=== PATIENT | female | born 1945 | race Caucasian/White ===

== ENCOUNTER → 2016-07-26 12:42 | Outpatient (CLI) | payer MEDICARE, MEDICAID ==
[2013-09-23 10:54] VITALS: BMI 26.9
[~2016-07-26 12:42] MED LIST: BAYER CHEWABLE81 MG PO; EFFIENT10 MG PO; GABAPENTIN100 MG PO; GLUCOPHAGE1000 MG PO; HYDRALAZINE HCL50 MG PO; HYDROCODON-ACE1 EAC3; ISOSORBIDE MONO60 M1 PO; PLETAL50 MG PO; SYNTHROID75 MCG PO; SYNTHROID88 MCG PO
[2016-07-26 13:19] LABS: ANION GAP 11.1 mmol/L (8-16); CALCIUM 8.2 mg/dL (8.5-10.1); CARBON DIOXIDE 31.9 mmol/L (21.0-32.0); CREATININE - SERUM 3.7 mg/dL (0.6-1.3)
[2016-07-26 13:21] LABS: BASOPHILS 0.5 % (0.0-2.0); EOSINOPHILS 3.5 % (0-7); HEMATOCRIT 33.1 % (36.0-48.0); HEMOGLOBIN 10.4 g/dL (12-16); IMMATURE GRANULOCYTES 1.1 % (0-5); MCH 26.5 pg (26.0-34.0); MCHC 31.4 g/dL (31.0-37.0); MCV 84.4 fL (80.0-100.0); MEAN PLATELET VOLUME 11.8 fL (7.4-10.4); MONOCYTES 15.6 % (2-11); NEUTROPHILS 70.3 % (40-80); PLATELET COUNT 268 10x3/uL (130-400); RBC 3.92 10x6/uL (4.00-5.40); RDW 15.8 % (11.5-14.5); WBC 7.5 10x3/uL (4.8-10.8)
[2016-08-29 10:28] VITALS: BMI 24.3
== END | disposition home or self-care (01) ==
LOC: D.LABREF 12:42
PROVIDERS: Internal Medicine Nephrology
DX: N18.6 End stage renal disease (principal); D64.9 Anemia, unspecified

== ENCOUNTER 2016-08-23 13:32 | Inpatient (IN) | payer MEDICARE ==
[~2016-08-23] VITALS: Ht 157.5 cm; Wt 60.3 kg
--- NOTE | ~2016-08-23 | HEMODYNAMI ---
PATIENT:CAM FANG MEDICAL RECORD: [id number] : 45 LOCATION:[facility] D.[address] [facility]# [id number] ADMISSION DATE: 08/23/16 Generatedon:08/28/201611:44 Patient name: CAM FANG Patient #: [id number] SSN: [id number] : 1945 Date of study: 08/28/2016 Page: Of Hemodynamic Procedure Report Patient Data Patient Demographics Procedure consent was obtained First Name: CAM Gender: Female Last Name: ANNALISA : 1945 Patient #: [id number] Age: 70 year(s) Race: SSN: [id number] Additional ID: [id number] Contact details [address]: [address] [place] [address] State: [place] City: [place] Zip code: [address] Admission Admission Data Admission Date: 08/23/2016 Admission Time: 13:32 Arrival Date: 08/23/2016 Arrival Time: 13:32 Admit Source: Other Insurance Payor: Medicare Room #: D.2104 Lab Results Lab Result Date: 08/28/2016 Lab Result Time: 0:00 Biochemistry Name Units Result Min Max BUN mg/dl 38 --(----)-* 7 18 Creatinine mg/dl 3.9 --(----)-* 0.6 1.3 CBC Name Units Result Min Max Hemoglobin g/dl 8.5 *-(----)-- 13.5 17.5 Procedure Procedure Types Cath Procedure Diagnostic Procedure LHC LHC w/Coronaries w/Grafts PCI Procedure Coronary Stent Initial Miscellaneous Procedures Moderate Sedation up to 15 minutes Procedure Description Procedure Date Procedure Date: 08/28/2016 Procedure Start Time: 11:07 Procedure End Time: 11:31 Procedure Staff Name Function Becki Khan RT Scrub Yaniv Pride RN Nurse Jose Angel Cardona MD Performing Physician Vanessa Garcia RT Monitor Procedure Data Cath Procedure Fluoroscopy Diagnostic fluoroscopy Total fluoroscopy Time: 5.2 time: 5.2 min min Diagnostic fluoroscopy Total fluoroscopy dose: 234 dose: 234 mGy mGy Contrast Material Contrast Material Type Amount (ml) Isovue 300 163 Entry Location Entry Primary Successful Side Size Upsize Upsize Entry Closure Succes sful Closure Location (Fr) 1 (Fr) 2 (Fr) Remarks Device Remarks Femoral Left 5 Fr 6 Fr artery Short Estimated blood loss: 10 ml Diagnostic catheters Device Type Used For End Catheter Placement Cordis 5Fr Pigtail Ventriculography Catheter (MP) Cordis 5Fr JL 4.0 Procedure Catheter (MP) Cordis 5Fr 3DRC Catheter Procedure (MP) Procedure Complications No complications Procedure Medications Medication Administration Route Dosage Oxygen NC 3 l/min Lidocaine 2% added to field 20 Heparin Flush Bag added to field 2 bags (1000units/500ml NS) 0.9% NaCl I.V. 50 ml/hr Versed I.V. 0.5 mg Fentanyl I.V. 25 mcg Heparin Bolus I.V. 4000 units Integrilin (Bolus I.V. 5.6 ml 2mg/ml) Versed I.V. 0.5 mg Fentanyl I.V. 25 mcg Effient P.O. 60 mg Hemodynamics Rest HGB: 8.5 (g/dl) Heart Rate: 92 (bpm) Snapshots Pre Cath Intra NCS Post Cath Vital Signs Time Heart Resp SPO2 NIBP (mmHg) Rhythm Pain Sedation Rate (ipm) (%) Status Level (bpm) 10:52:00 93 19 95 Time NSR 0 (11) 10(A) Exceeded , No pain 10:56:59 93 18 96 Measuring NSR 0 (11) 10(A) , No pain 11:01:52 92 17 94 129/101(112) NSR 0 (11) 10(A) , No pain 11:06:51 97 18 95 190/89(0) NSR 0 (11) 10(A) , No pain 11:08:15 97 18 93 147/67(0) NSR 0 (11) 10(A) , No pain 11:13:14 98 19 95 190/84(0) NSR 0 (11) 10(A) , No pain 11:14:38 101 21 96 Time NSR 0 (11) 10(A) Exceeded , No pain 11:19:37 93 16 96 174/82(0) NSR 0 (11) 10(A) , No pain 11:25:39 99 23 92 No Cuff NSR 0 (11) 10(A) , No pain 11:28:40 97 20 93 169/50(104) NSR 0 (11) 10(A) , No pain 11:31:56 101 20 86 147/62(102) NSR 0 (11) 10(A) , No pain Medications Time Medication Route Dose Verified Delivered Reason Notes Effectiveness by by 10:46:30 Oxygen NC 3 Jose Angel Purvis used for l/min Dulce Pride RN procedure 11:04:39 Lidocaine 2% added 20ml Jose Angel Walter for local to vial Dulce Cardona MD anesthetic field 11:05:45 Heparin Flush added 2 Jose Angel Walter used for Bag to bags Dulce Cardona MD procedure (1000units/500ml field NS) 11:05:55 0.9% NaCl I.V. 50 Jose Angel Purvis Per physician ml/hr Dulce Pride RN 11:07:03 Versed I.V. 0.5 Jose Angel Purvis for sedation mg Dulce Pride RN 11:07:10 Fentanyl I.V. 25 Jose Angel Purvis for sedation mcg Dulce Pride RN 11:11:14 Versed I.V. 0.5 Jose Angel Purvis for sedation mg Dulce Pride RN 11:11:18 Fentanyl I.V. 25 Jose Angel Purvis for sedation mcg Dulce Pride RN 11:15:08 Heparin Bolus I.V. 4000 Jose Angel Purvis for verifi ed units Dulce Pride RN anticoagulation with dr cardona 11:20:10 Integrilin I.V. 5.6 Jose Angel Purvis for [place] d (Bolus 2mg/ml) ml Dulce Pride RN antiplatelet 4.4 ml therapy of vial 11:28:58 Effient P.O. 60 mg Jose Angel Purvis for Dulce Pride RN antiplatelet therapy Procedure Log Time Note 10:15:54 Yaniv Pride RN sent for patient. Start room use. 10:34:06 Informed consent obtained and on chart 10:34:09 Diagnostic Cath Status : Elective 10:34:30 Arrival Date: 08/23/2016 1:32:00 PM 10:34:36 Admit Source: Other 10:34:38 Insurance Payor : Medicare 10:37:01 Time tracking: Regular hours 10:37:05 Plan of Care:Hemodynamics will remain stable., Cardiac rhythm will remain stable., Comfort level will be maintained., Respiratory function will remain adequate., Patient/ family verbilizes understanding of procedure., Procedure tolerated without complication., Recovers from procedure without complications.. 10:37:11 Patient received from Med II to CCL 3 Alert and oriented. Tansferred to table in Supine position. 10:37:12 Warm blankets applied, and geeta hugger turned on for patient comfort. 10:37:13 Correct patient and procedure confirmed by team. 10:37:14 ECG and BP/O2 sat monitors applied to patient. 10:37:38 Lab Result : Hemoglobin 8.5 g/dl 10:37:38 Lab Result : Creatinine 3.9 mg/dl 10:37:38 Lab Result : BUN 38 mg/dl 10:44:49 Vital chart was started 10:44:50 Baseline sample Acquired. 10:44:53 Rhythm: unchanged. 10:44:55 Full Disclosure recording started 10:45:08 H&P Date Dictated: 08/27/2016 Within 30 days and on chart., H&P Addendum completed by physician on day of procedure. (MUST COMPLETE FOR ALL OUTPATIENTS). 10:45:09 Pre-procedure instructions explained to patient. 10:45:10 Pre-op teaching completed and patient verbalized understanding. 10:45:11 Family in waiting room. 10:45:12 Patient NPO since Midnight. 10:45:53 Is the patient allergic to Iodine/contrast media? No. 10:45:54 Was the patient premedicated? No 10:46:20 Patient diabetic? Yes. 10:46:24 Previous problem with sedation/anesthesia? Yes neuro 10:46:25 Snore? Yes 10:46:26 Sleep apnea? No 10:46:27 Deviated septum? No 10:46:28 Opens mouth fully? Yes 10:46:29 Sticks out tongue? Yes 10:46:30 Oxygen 3 l/min NC was administered by Yaniv Pride RN; used for procedure; 10:50:56 IV patent on arrival in right forearm with 0.9% NaCl at O. 10:51:03 Lab results completed and on chart. 10:51:07 Left groin area was prepped with chlora-prep and draped in sterile fashion 10:51:09 Alarms reviewed by R. N. 10:51:10 Sharps counted by scrub and verified by R.N. 10:51:16 Use device set Femoral Dx 10:51:17 Acist Syringe opened to sterile field. 10:51:18 Medline Cath Pack opened to sterile field. 10:51:18 Bag Decanter opened to sterile field. 10:51:19 Terumo 5Fr Denver Sheath opened to sterile field. 10:51:21 St Giovanny 260cm J .035 wire opened to sterile field. 10:51:22 Acist Manifold opened to sterile field. 10:51:22 Acist Hand Control opened to sterile field. 10:51:23 Diagnostic Infinity 5Fr Multipack catheter opened to sterile field. 10:51:24 Tegaderm 4 x 4 opened to sterile field. 10:57:14 Physician paged 11:04:39 Lidocaine 2% 20ml vial added to field was administered by Jose Angel Cardona MD; for local anesthetic; 11:05:45 Heparin Flush Bag (1000units/500ml NS) 2 bags added to field was administered by Jose Angel Cardona MD; used for procedure; 11:05:55 0.9% NaCl 50 ml/hr I.V. was administered by Yaniv Pride RN; Per physician; 11:06:40 --------ALL STOP TIME OUT------ 11:06:41 Final Timeout: patient, procedure, and site verified with staff and physician. All members of the team are in agreement. 11:06:43 Left groin site verified by team. 11:06:48 Sedation plan: IV Moderate Sedation Versed, Fentanyl 11:06:56 Procedure started. 11:06:58 Zero performed for pressure channel P1 11:07:03 Versed 0.5 mg I.V. was administered by Yaniv Pride RN; for sedation; 11:07:09 Local anesthetic to left femerol artery with Lidocaine 2% by Jose Angel Cardona MD.INITIAL ACCESS ONLY 11:07:10 Fentanyl 25 mcg I.V. was administered by Yaniv Pride RN; for sedation; 11:07:21 A 5 Fr sheath was inserted into the Left Femoral artery 11:07:43 A Cordis 5Fr Pigtail Catheter (MP) was advanced over the wire and used for Ventriculography. 11:08:23 EF : 50 % 11:08:25 Catheter removed. 11:08:32 A Cordis 5Fr JL 4.0 Catheter (MP) was advanced over the wire and used for Procedure. 11:08:35 LCA angiography performed. 11:10:11 Catheter removed. 11:10:21 A Cordis 5Fr 3DRC Catheter (MP) was advanced over the wire and used for Procedure. 11:11:05 HOYT to LAD angiography performed. 11:11:10 Catheter removed. 11:11:14 Versed 0.5 mg I.V. was administered by Yaniv Pride RN; for sedation; 11:11:18 Fentanyl 25 mcg I.V. was administered by Yaniv Pride RN; for sedation; 11:11:24 Terumo 6Fr Denver Sheath opened to sterile field. 11:11:37 Sheath upsized to a 6 Fr Short. 11:11:51 Moki.tv BasixCompak Inflation Kit opened to sterile field. 11:11:54 Leiva Whisper J 300cm 0.014 guide wire opened to sterile field. 11:12:06 Asetek Launcher 5Fr AR 2.0 guide catheter opened to sterile field. 11:12:25 SVG to RCA angiography performed. 11:13:05 SVG to Circ angiography performed. 11:13:39 Catheter removed. 11:13:53 Cordis 6FR XB 4.0 guide catheter opened to sterile field. 11:13:58 Proceeding to intervention. 11:14:13 6 Fr XB 4 guide catheter was inserted over the wire 11:14:46 Whispr wire advanced. 11:15:08 Heparin Bolus 4000 units I.V. was administered by Yaniv Pride RN; for anticoagulation; verified with dr cardona 11:16:01 Wire advanced across lesion. 11:18:14 Inflation number: 1 A Euphora 1.5 x 20 Balloon was prepped and advanced across the Mid CX, then inflated to 13 AMBER for 0:00 (min:sec). 11:18:34 Inflation number: 2 The Euphora 1.5 x 20 Balloon was reinflated across the Mid CX, to 13 AMBER for 0:10 (min:sec). 11:18:46 Balloon removed over the wire. 11:20:10 Integrilin (Bolus 2mg/ml) 5.6 ml I.V. was administered by Yaniv Pride RN; for antiplatelet therapy; Wasteed 4.4 ml of vial 11:20:48 Inflation Number: 3 A Leiva Mini Vision Rx 2.0 x 28 stent was prepped and advanced across the Mid CX. The stent was deployed at 11 AMBER for 0:00 (min:sec). 11:20:51 Wire removed. 11:21:09 Cordis 6Fr Exoseal opened to sterile field. 11:21:17 Guide catheter removed. 11::23 Procedure ended.(Physican Out) 11:22:09 Fluoroscopy time 05.20 minutes. 11:22:18 Fluoroscopy dose: 234 mGy 11::18 Flurop Dose total: 234 11:: Contrast amount:Isovue 300 163ml. 11:22:24 Sharps counted by scrub and verified by R.N. 11:22:26 Insertion/operative site no bleeding no hematoma. 11:22:44 Post Procedure Pulses reassessed and unchanged 11::51 Post procedure rhythm: unchanged. 11::53 Estimated blood loss: 10 ml 11::57 Post procedure instruction explained to patient.Patient verbalizes understanding. 11:23:24 Procedure type changed to Cath procedure, Diagnostic procedure, LHC, LHC w/Coronaries w/Grafts, PCI procedure, Coronary Stent Initial, Miscellaneous Procedures, Moderate Sedation up to 15 minutes 11::58 Effient 60 mg P.O. was administered by Yaniv Pride RN; for antiplatelet therapy; 11:29:33 St Giovanny Femstop Arch Gold opened to sterile field. 11:29:50 Post left femerol artery:hematoma 11:30:23 Femstop placed over the left femerol artery at 185 mmHg. Hemostasis achieved. 11:30:31 Procedure and supply charges have been captured, reviewed, submitted and are correct. 11:30:55 Procedure Complication : No complications 11:30:59 Vital chart was stopped 11::01 See physician's report for complete and final results. 11:31:[address] [facility]. 11:31:16 Patient transfered to [facility] with Bed. 11:31:19 Full Disclosure recording stopped 11::19 Procedure ended. 11::23 End room use (Document Last) Intervention Summary Intervention Notes Time ActionType Lesion and Equipment Action# Pressure Duration Attributes Used 11:18:14 Inflate Mid CX Euphora 1 13 00:00 balloon 1.5 x 20 Balloon 11:18:34 Reinflate Mid CX Euphora 2 13 00:10 balloon 1.5 x 20 Balloon 11:20:48 Place stent Mid CX Leiva 3 11 00:00 Mini Vision Rx 2.0 x 28 stent Device Usage Item Name Manufacture Quantity Catalog Hospital Part Current Minimal Lot# / Number Charge Number Stock Stock Serial# Code Acist Acist 1 [id number] [id number] 532898 [id number] 20 Syringe Medical Systems Inc Bag Microtek 1 2002S 406153 67783 027310 5 Decanter JK [employer] Medline Cardinal 1 [id number] 562063 23814 436228 5 Cath Pack Health Terumo 5Fr Terumo 1 [id number] 149066 337294 555254 [address] Giovanny 1 265677 492867 404143 747430 30 260cm J .035 wire Acist Hand Acist 1 02603 583193 873612 143188 5 Control Medical Systems Inc Acist Acist 1 01935 078674 815990 793750 5 Manifold Medical Systems Inc Diagnostic Cardinal 1 [id number] 518891 31061 337269 30 Infinity Health 5Fr Multipack catheter Tegaderm 4 3M 1 [id number] 602224 443661 703495 5 x 4 Cordis 5Fr Cardinal 1 889106 5 Pigtail Health Catheter (MP) Cordis 5Fr Cardinal 1 366556 5 JL 4.0 Health Catheter (MP) Cordis 5Fr Cardinal 1 354089 5 3DRC Health Catheter (MP) Terumo 6Fr Terumo 1 DEF574 141528 776263 623396 40 [place] Sheath Merit Merit 1 [id number] 076854 747720 176133 15 BasixCompak Medical Inflation Kit Leiva Leiva 1 [id number] 878985 142715 032585 5 Whisper J Vascular 300cm 0.014 guide wire Medtronic Medtronic 1 [id number] 096210 037236 884592 1 Launcher 5Fr AR 2.0 guide catheter Cordis 6FR Cardinal 1 [id number] 130985 774359 031966 2 XB 4.0 Health guide catheter Euphora 1.5 Medtronic 1 [id number] 590778 068609 529604 5 [id number] x 20 Balloon Leiva Mini Leiva 1 [id number] 741153 182624 864372 5 [id number] Vision Rx Vascular 2.0 x 28 stent Cordis 6Fr Cardinal 1 EX600 662331 579368 778260 [address] Giovanny 1 [id number] 644780 370427 397752 5 Femstop Arch Gold Signature Audit [place] Stage Time Signature Unsigned Intra-Procedure 08/28/2016 Vanessa Garcia 11:32:18 AM RT(R); Becki RT(R); Sunshine Khan RT(R) Counts RT(R) 08/28/2016 11:43:04 AM Intra-Procedure 08/28/2016 Vanessa Garcia 11:43:58 AM RT(R) Signatures Monitor : Vanessa Garcia Signature : RT Date : Time : [facility] [address] [place] [address]
[~2016-08-23 13:32] MED LIST changes: -EFFIENT10 MG PO; -HYDRALAZINE HCL50 MG PO; -ISOSORBIDE MONO60 M1 PO; -SYNTHROID88 MCG PO
--- NOTE | 2016-08-23 13:49 | NUR ---
PT ARRIVED VIA WHEELCHAIR. WILL ADMIT.
[2016-08-23] MEDS ORDERED: HYDRALAZINE HCL50 MG PO (14:08)
[2016-08-23] MEDS ORDERED: ISOSORBIDE MONO60 M1 PO (14:09)
[2016-08-23 14:29] VITALS: BP 212/106
--- NOTE | 2016-08-23 14:31 | NUR ---
PATIENT REPORTS THAT SHE IS DIABETIC AND FEELS IF HER SUGAR IS "DROPPING". POC GLUCOSE IS 111. SHE HAS NO IDEA WHAT HER ALLERGIES ARE. I CALLED TO [facility] TO GET THEM TO FAX ME A COPY OF MEDS AND ALLERGIES.
--- NOTE | 2016-08-23 18:16 | NUR ---
CALL PLACED TO HI FRIEND APN R/T "CAN WE PLEASE FEED THE PATIENT" . AWAITING CALL BACK.
--- NOTE | 2016-08-23 18:37 | NUR ---
1823 - CALLED [facility] YAN FOR DIET. DR. JUNG REFFERED DIET TO DR. BOCANEGRA. CALLED DR. BOCANEGRA'S CELL PHONE, OFFICE AND THE SURGERY DEPARTMENT WITH NO ANSWER. CALL PLACED TO HOUSE SUP AND STATES SHE WILL CALL BACK.
--- NOTE | 2016-08-23 18:59 | NUR ---
CALLED THE HOME NUMBER FOR DR BOCANEGRA AND LEFT A MESSAGE TO PLEASE CALL US. ANOTHER NURSE HAS A CALL INTO THE RENAL OFFICE FOR THEM TO CALL US. AWAITING SOMEONE TO CALL US.
[2016-08-23 19:00] VITALS: BP 121/69
--- NOTE | 2016-08-23 19:15 | NUR ---
DR BOCANEGRA TO CALL BACK WITH NEW ORDERS.
--- NOTE | 2016-08-23 19:30 | NUR ---
RESUMED CARE OF PT, DENIES ANY NEEDS, CALL LIGHT IN REACH, WILL CONTINUE TO MONITOR
[2016-08-23 22:28] LABS: BASOPHILS 0.3 % (0.0-2.0); EOSINOPHILS 4.9 % (0-7); HEMOGLOBIN 8.4 g/dL (12-16); IMMATURE GRANULOCYTES 0.3 % (0-5); LYMPHOCYTES 19.6 % (15-50); MCH 26.4 pg (26.0-34.0); MCHC 31.1 g/dL (31.0-37.0); MCV 84.9 fL (80.0-100.0); MEAN PLATELET VOLUME 10.1 fL (7.4-10.4); MONOCYTES 6.7 % (2-11); NEUTROPHILS 68.2 % (40-80); PLATELET COUNT 217 10x3/uL (130-400); RBC 3.18 10x6/uL (4.00-5.40); RDW 16.3 % (11.5-14.5); WBC 6.4 10x3/uL (4.8-10.8)
[2016-08-23 22:37] LABS: ALBUMIN 2.4 g/dL (3.4-5.0); ANION GAP 12.3 mmol/L (8-16); BILIRUBIN - TOTAL 0.2 mg/dL (0.2-1.3); CALCIUM 8.1 mg/dL (8.5-10.1); CARBON DIOXIDE 25.3 mmol/L (21.0-32.0); CREATININE - SERUM 3.1 mg/dL (0.6-1.3); POTASSIUM - SERUM 4.6 mmol/L (3.5-5.1); PROTEIN - SERUM 5.8 g/dL (6.4-8.2)
--- NOTE | 2016-08-23 23:10 | NUR ---
PT RESTING QUIETLY WITHOUT C/O OR DISTRESS NOTED. FEW NEEDS VOICED. CALL LIGHT WITHIN REACH. WILL CONT TO MONITOR.
[2016-08-24] VITALS: BP 171/96
--- NOTE | 2016-08-24 03:05 | NUR ---
EKG COMPLETE, CONSENTS SIGNED
[2016-08-24 04:00] VITALS: BP 191/91
[2016-08-24 06:59] LABS: BASOPHILS 0.5 % (0.0-2.0); EOSINOPHILS 5.7 % (0-7); HEMATOCRIT 26.9 % (36.0-48.0); HEMOGLOBIN 8.4 g/dL (12-16); IMMATURE GRANULOCYTES 0.5 % (0-5); LYMPHOCYTES 23.4 % (15-50); MCH 26.6 pg (26.0-34.0); MCHC 31.2 g/dL (31.0-37.0); MCV 85.1 fL (80.0-100.0); MEAN PLATELET VOLUME 10.4 fL (7.4-10.4); MONOCYTES 11.3 % (2-11); NEUTROPHILS 58.6 % (40-80); PLATELET COUNT 235 10x3/uL (130-400); RBC 3.16 10x6/uL (4.00-5.40); RDW 16.3 % (11.5-14.5); WBC 5.8 10x3/uL (4.8-10.8)
--- NOTE | 2016-08-24 07:00 | NUR ---
RECEIVED REPORT. ASSUMED CARE OF PATIENT. ALERT/ORIENTED. PATIENT AWARE OF SURGERY THIS AM. CALL LIGHT WITHIN REACH. DENIES NEEDS. NO DISTRESS.
[2016-08-24 07:10] LABS: INR 0.96 (0.85-1.17); PROTIME 12.6 SECONDS (11.6-15.0)
[2016-08-24 07:15] LABS: ANION GAP 10.2 mmol/L (8-16); CALCIUM 8.5 mg/dL (8.5-10.1); CARBON DIOXIDE 27.3 mmol/L (21.0-32.0); CREATININE - SERUM 3.1 mg/dL (0.6-1.3); POTASSIUM - SERUM 4.5 mmol/L (3.5-5.1)
[2016-08-24 08:12] VITALS: BP 186/89
--- NOTE | 2016-08-24 10:38 | NUR ---
PREOP FLUIDS READY AND PLACED AT END OF PATIENT BED AT THIS TIME. PATIENT REQUESTED THAT HER FSBS BE CHECKED, RESULTED 108. AWAITING FOR SURGERY AT THIS TIME. NO DISTRESS.
--- NOTE | 2016-08-24 10:46 | NUR ---
PATIENT LEFT UNIT VIA BED AT THIS TIME WITH SURGERY ATTENDANTS. NO DISTRESS UPON LEAVING UNIT.
[2016-08-24 13:14] VITALS: BP 174/97
--- NOTE | 2016-08-24 13:15 | NUR ---
RECEIVED PATIENT BACK FROM SURGERY. ALERT/AWAKE. DIALYSIS NURSE AT BEDSIDE. HEMESPLIT PLACED TO RIGHT GROIN. NO BLEEDING FROM SITE. DRESSING INTACT TO RIGHT SIDE OF NECK. NO BLEEDING FROM DRESSING. CALL LIGHT WITH IN REACH. NO DISTRESS. PERIPHERAL PULSES PATENT.
--- NOTE | 2016-08-24 13:38 | NUR ---
SPOKE WITH AND STATES THAT RIGHT NIXON LLANOSLIT IS OKAY TO USE FOR DIALYSIS AT THIS TIME.
[2016-08-24 15:51] VITALS: BP 126/79
--- NOTE | 2016-08-24 17:10 | NUR ---
Mrs. Peterson had bedside hemodialysis today via her new right femoral hemosplit from 1400 until 1700. Average blood flow was 400 mls/minute. Net fluid removed was 2000 mls. No problems. Post vital signs were: B/P:142/74,HR:75,Temp:97.7,Resps:16.
[2016-08-24 20:57] VITALS: BP 138/67
--- NOTE | 2016-08-24 21:10 | NUR ---
BLOODSUGAR-319, GAVE 8 UNITS INSULIN
[2016-08-25 00:30] VITALS: BP 119/50
--- NOTE | 2016-08-25 02:12 | NUR ---
PT RESTING WELL WITHOUT C/O OR DISTRESS NOTED. CALL LIGHT WITHIN REACH. NO NEEDS VOICED. WILL MONITOR.
--- NOTE | 2016-08-25 03:22 | NUR ---
ASSESSMENT COMPLETE, PT SLEEPING, BED IS LOW, SRX2, CALL LIGHT IN REACH, WILL CONTINUE TO MONITOR
[2016-08-25 04:30] VITALS: BP 141/59
[2016-08-25 05:10] LABS: BASOPHILS 0.3 % (0.0-2.0); HEMATOCRIT 28.1 % (36.0-48.0); HEMOGLOBIN 8.9 g/dL (12-16); IMMATURE GRANULOCYTES 0.4 % (0-5); LYMPHOCYTES 17.9 % (15-50); MCH 26.9 pg (26.0-34.0); MCHC 31.7 g/dL (31.0-37.0); MCV 84.9 fL (80.0-100.0); MEAN PLATELET VOLUME 10.8 fL (7.4-10.4); MONOCYTES 11.9 % (2-11); NEUTROPHILS 65.5 % (40-80); PLATELET COUNT 205 10x3/uL (130-400); RBC 3.31 10x6/uL (4.00-5.40); RDW 16.6 % (11.5-14.5)
[2016-08-25 05:26] LABS: WBC 7.8 10x3/uL (4.8-10.8)
[2016-08-25 06:01] LABS: ANION GAP 12.2 mmol/L (8-16); CALCIUM 8.4 mg/dL (8.5-10.1); CARBON DIOXIDE 28.6 mmol/L (21.0-32.0); CREATININE - SERUM 2.9 mg/dL (0.6-1.3); PHOSPHOROUS 4.1 mg/dL (2.5-4.9); THYROID STIMULATING HORMONE 5.37 uIU/mL (0.36-3.74)
[2016-08-25 06:02] LABS: POTASSIUM - SERUM 3.8 mmol/L (3.5-5.1)
--- NOTE | 2016-08-25 07:20 | NUR ---
RECEIVED REPORT. ASSUMED CARE OF PATIENT. CALL LIGHT WITHIN REACH. DENIES NEEDS. RESP EVEN AND UNLABORED. LYING IN BED WITH EYES OPEN WANTING TO KNOW IF SHE WILL GET TO EAT BREAKFAST THIS AM. ASSURED PATIENT SHE WILL GET A BREAKFAST TRAY. DENIES ANY NEEDS AT THIS TIME.
[2016-08-25 08:12] VITALS: BP 145/62
--- NOTE | 2016-08-25 09:13 | HP ---
PATIENT: CAM FANG MEDICAL RECORD: [id number] ACCOUNT: [id number] LOCATION:[address] : 45 ADMISSION DATE: 08/23/16 HISTORY AND PHYSICAL EXAMINATION ADMISSION DATE: 08/23/2016 ADMISSION DIAGNOSES: Dialysis access complications and end-stage renal disease. HISTORY OF PRESENT ILLNESS: The patient is a 70-year-old white female with a history of end-stage renal disease secondary to diabetic nephropathy. She was hospitalized at [facility] in June of this year with acute anemia and kidney failure. She had a renal biopsy at that time, which showed diabetic nephropathy and was started on hemodialysis. While hospitalized at [facility], she had a HemoSplit catheter placed at that time and was started on hemodialysis at [facility] 3 days a week. She has been on HD for only 1 month and has clotted 4 catheters. Her most recent catheter was placed earlier this week and she was only able to receive dialysis one time. Yesterday at dialysis, the nurses were unable to pull any blood from each port. This fourth catheter that was placed was moved from the right side to the left side and still it did not help. The patient does not have any known blood clotting disorders and does not know of any family history of blood clotting disorders. She has had ongoing issues with anemia over the last few years and has seen hematology in the past. She also has a history of coronary artery disease, aortic stenosis, hyperlipidemia, type 2 diabetes, and anemia. We are admitting her for a clotted dialysis access, needing emergent dialysis and permanent dialysis access placement. PAST MEDICAL HISTORY: 1. ESRD secondary to biopsy-proven diabetic nephropathy, biopsy was done in July 2016 at [facility] in [place]. She had a HemoSplit catheter placed there by Dr. Rodriguez. She currently does not have a fistula or graft for dialysis and is interested in peritoneal dialysis. 2. Coronary artery disease. The patient has had multiple coronary stents placed in the past. She has been to the hospital multiple times, diagnosed with OH and treated with stents during 2006, 2008, 2010 and 2013. The heart cath done in 2006 was done in [place], [place]. She moved to [place] in 2008 where all of her other stents had been done. She had a CABG times [address] Priest. 3. Diabetic nephropathy. She was diagnosed with diabetes when she lived in [place], [place] during the . 4. Heart valve disease, history of aortic stenosis with mild LVH. Her last EF in July 2016 was 50%. 5. Hyperlipidemia. The patient has tried Lipitor and Crestor in the past, but is allergic to both. 6. Hypothyroidism. 7. Anemia. The patient has been hospitalized in the past requiring multiple units of blood transfusions, has seen hematology in the past. She was seen by Dr. Self in 2010. 8. Diabetic foot wound and cellulitis. She has been seen by Dr. Gustafson in 2013. 9. Peripheral vascular disease. She states she was supposed to have a procedure done on her arteries in her legs, but it was never done at the last visit, she left AMA. She is not currently on Plavix, STATES SHE IS ALLERGIC TO PLAVIX. HISTORY AND PHYSICAL [id number] CAM FANG 10. Diabetic neuropathy, currently takes gabapentin. 11. Gastritis, possible gastrointestinal bleed when she was admitted in [address] [facility] Paris was consulted and wanted to do an EGD due to her anemia and gastritis symptoms. She is scheduled for EGD, but left AMA. I do not see that it was done. PAST SURGICAL HISTORY: 1. Multiple dialysis HemoSplit catheter placements by Dr. Rodriguez and at her OPC in [place] between June and July 2016. 2. Multiple heart catheterizations with stents from 2006 until 2013. 3. CABG times [address] Priest. 4. Tubal ligation about 15-20 years ago. SOCIAL HISTORY: The patient was born in [place], [place] where she lived until she was 21 years old and moved to [place] where she stayed for about 20 years. She lived in [place], [place] to be close to her mother. She was briefly one time in which she had 1 son, but in 1996, then had 2 more children that are now all grown. She moved to [place], [place] in 2006 where she lived about 11 years. 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 Her 3 children are all grown and are 30s and 40s. 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 She has a history of smoking, but quit in 1990. She also quit drinking alcohol at that time. Denies any illicit drug use. FAMILY HISTORY: Her father had a history of diabetes and at age 87 from a CVA, also with heart disease. Mother at age 82 from lung cancer. She had 2 brothers with diabetes. One son has diabetes. No family history of any kidney disease that she knows of. ALLERGIES: LIPITOR, PLAVIX, AND CRESTOR. MEDICATIONS: Hydralazine 50 mg p.o. daily, Isosorbide 60 mg p.o. daily, aspirin 81 mg p.o. daily, Coreg 6.25 mg, 1 tab p.o. t.i.d., Lasix 20 mg p.o. daily on nondialysis days, Procardia-XL 60 mg, 1 tab p.o. daily for 14 days, MiraLax 17 grams p.o. daily, and [place]leton 7.5/325, one tab p.o. t.i.d. p.r.n. REVIEW OF SYSTEMS: Positive for occasional constipation, muscle aches and pains, generalized weakness. Denies any shortness of breath, chest pain, headache, dizziness, abdominal pain, nausea, vomiting, diarrhea, or depression. PHYSICAL EXAMINATION: GENERAL: Adult female, in no acute distress. HEAD: Normocephalic and atraumatic. EYES: Pupils equal, round and reactive to light. ENMT: Oropharynx clear. No erythema. No exudate. NECK: Supple. No JVD distention. No lymphadenopathy. HEART: Regular rate and rhythm. No murmur, rub or gallop. LUNGS: Clear bilaterally. No wheezes, rales or crackles. ABDOMEN: Soft and nontender. Active bowel sounds times 4. Nondistended. EXTREMITIES: No amputations or deformities. No edema. NEUROLOGIC: Awake, alert, oriented times 3. Grossly intact. SKIN: No prominent rashes or lesions. HISTORY AND PHYSICAL [id number] CAM FANG ASSESSMENT AND PLAN: 1. Clotted dialysis catheter. This is the patient's fourth catheter to clot since she started dialysis a month ago. Dr. Pedroza with surgery was consulted who is planning on placing a HemoSplit catheter tomorrow. She also needs a fistula or graft and may be PD catheter. The patient has transportation issues and is very interested in peritoneal dialysis. Due to her clotting multiple catheters, we will check clotting studies. She has no history of lupus or any blood clotting disorders. 2. End-stage renal disease, she has only had one complete dialysis treatment this week due to a clotted catheter. Labs showed no emergent need to dialyze today. We will dialyze her tomorrow after her HemoSplit catheter is placed, then continue hemodialysis Friday, Friday, Friday, per chronic schedule. 3. Anemia of chronic kidney disease. We will follow her H&H daily. 4. Coronary artery disease. The patient is currently on aspirin, but IS ALLERGIC TO PLAVIX. Per patient report, she IS ALSO ALLERGIC TO CRESTOR AND LIPITOR, but needs to take an antilipid due to her history of having multiple stents. She will need to follow up with her filter changing technician as outpatient to discuss medications. 5. Hypertension. We will continue her oral antihypertensives. 6. Type 2 diabetes. We will continue diabetic diet and sliding scale insulin a.c. and h.s. She is not currently on any diabetic medications. 7. Hypothyroidism. Check TSH. Continue levothyroxine. 8. Renal osteodystrophy. Check phosphorus, renal diet and start binders if needed. TRANSINT:[id number] Voice Confirmation ID: [id number] DOCUMENT ID: [id number] Dictated By: EDWARDO FRIEND I have interviewed/examined the above patient and agree with these documented findings. SUNNY NAIK MD at 0855 at 0913 CC: [id number] DICTATION DATE: 08/24/16 09 UPSETTER: 08/24/16 1055 ADM IN [facility] [address] [place] [address]
--- NOTE | 2016-08-25 11:19 | NUR ---
22 GAUGE IV TO LEFT WRIST REMOVED AT THIS TIME. CATHETER TIP INTACT. 2X2 GAUZE APPLIED, SECURED WITH TAPE. NO BLEEDING FROM SITE. IV REMOVED FROM NON-DOMINANT ARM WE WILL RESERVE THE LEFT EXTREMITY FOR FISTULA PLACEMENT ON 08/26/16 VIA .
[2016-08-25 11:52] VITALS: BP 130/54
--- NOTE | 2016-08-25 12:00 | NUR ---
FSBS 230. 4 UNITS HUMALOG ADMINISTERED AT THIS TIME. NO DISTRESS.
[2016-08-25 15:13] VITALS: BP 105/56
--- NOTE | 2016-08-25 16:41 | NUR ---
FSBS 210. 4 UNITS HUMALOG ADMINISTERED PER SLIDING SCALE.
[2016-08-25 20:00] VITALS: BP 134/65
[2016-08-26] VITALS: BP 182/88
[2016-08-26 04:00] VITALS: BP 153/81
--- NOTE | 2016-08-26 05:27 | NUR ---
NURSE ROUNDS 21:00 08/25/16 - PT LYING IN BED ON LEFT SIDE, EYES CLOSED, RESPIRATIONS EVEN AND UNLABORED. PT EASILY ROUSABLE TO VERBAL STIMULI, DENIES ANY ACUTE NEEDS. PT IS REQUESTING TO BE LEFT ALONE R/T WANTING TO SLEEP AND BEING VERY TIRED. FSBS WAS 199 - 2 UNITS OF INSULIN HELD SINCE PT IS NPO FOR FISTULA PLACEMENT TODAY. CONTINUE TO MONITOR CLOSELY. BED LOW, CALL LIGHT IN REACH, SIDE RAILS X 2, HOB 15 DEGREES. PT IS NPO AFTER MIDNIGHT 08/25/16, AND VERBALLY STATES SHE WILL CALL WITH ANY NEEDS.
[2016-08-26 05:32] LABS: BASOPHILS 0.5 % (0.0-2.0); EOSINOPHILS 5.2 % (0-7); HEMATOCRIT 26.6 % (36.0-48.0); HEMOGLOBIN 8.2 g/dL (12-16); LYMPHOCYTES 24.3 % (15-50); MCH 26.4 pg (26.0-34.0); MCHC 30.8 g/dL (31.0-37.0); MCV 85.5 fL (80.0-100.0); MEAN PLATELET VOLUME 10.5 fL (7.4-10.4); MONOCYTES 13.4 % (2-11); NEUTROPHILS 55.6 % (40-80); PLATELET COUNT 197 10x3/uL (130-400); RBC 3.11 10x6/uL (4.00-5.40); WBC 6.2 10x3/uL (4.8-10.8)
[2016-08-26 06:16] LABS: ANION GAP 12.6 mmol/L (8-16); CALCIUM 8.3 mg/dL (8.5-10.1); CARBON DIOXIDE 28.4 mmol/L (21.0-32.0)
--- NOTE | 2016-08-26 06:39 | NUR ---
PT AWAKE, ALERT, ORIENTED, RECEIVING HER HIBICLENS BATH AT THIS TIME. PT DENIES ANY ACUTE NEEDS, AND IS IN NO ACUTE DISTRESS. CONTINUE TO MONITOR.
[2016-08-26 08:43] VITALS: BP 132/78
--- NOTE | 2016-08-26 09:29 | NUR ---
ADMINISTERED EPOGEN SCHEDULE, PT NPO, PO MEDS NOT GIVEN AT THIS TIME. PT STATES THAT SHE HAS DEVELOPED BACK PAIN. HAS NOTHING FOR PAIN, PT DENIES ANY OTHER NEEDS AT THIS TIME. PT ASSESSED AT THIS TIME, NAD NOTED, WILL CONTINUE TO MONITOR, CALL LIGHT IN REACH.
--- NOTE | 2016-08-26 11:21 | NUR ---
BLOOD SUGAR OF 132, NO COVERAGE NEEDED PER SLIDING SCALE. PT IN BED, DENIES ANY NEEDS AT THIS TIME, CALL LIGHT IN REACH, NAD NOTED, WILL CONTINUE TO MONITOR.
--- NOTE | 2016-08-26 12:44 | NUR ---
DIALYSIS COORDINATOR: PATHWAYS: [facility] Mon/Wed/Fri 2nd shift. Records forwarded and clinic updated. ELMER LYNN.
[2016-08-26 13:14] VITALS: BP 182/71
--- NOTE | 2016-08-26 15:53 | NUR ---
ADMINISTERED PRE-OP MEDS, PT DENIES ANY NEEDS AT THIS TIME, CALL LIGHT IN REACH, NAD NOTED, WILL CONTINUE TO MONITOR.
--- NOTE | 2016-08-26 16:27 | NUR ---
PT TRANSFERED TO OR, VIA BED, NAD NOTED.
--- NOTE | 2016-08-26 16:35 | NUR ---
PT TRANSFERED BACK TO ROOM, SURGERY PUSHED BACK BECAUSE OF AN EMERGENCY. PT STATED THAT SHE WANTS SOME JELLO, INFOMRED HER THAT SHE IS STILL NPO AND IS NOT ABLE TO EAT ANYTHING AT THIS TIME. PT DENIES ANY OTHER NEEDS AT THIS TIME, CALL LIGHT IN REACH, WILL CONTINUE TO MONITOR.
[2016-08-26 17:16] VITALS: BP 140/92
--- NOTE | 2016-08-26 19:29 | NUR ---
PT WAS JUST TAKEN TO OR
[2016-08-26 22:06] VITALS: BP 187/67
--- NOTE | 2016-08-26 23:32 | NUR ---
PT RECEIVED FROM PACU @ 2150, AWAKE, ALERT, ORIENTED, DENIED PAIN AND WANTING SOMETHING TO EAT. PT STATES SHE RETURNED WITHOUT HER UPPER DENTURES AND THINKS THEY WERE LEFT IN OR. WILL CONTACT THEM IN THE AM, THEY HAVE LEFT FOR TODAY. TURKEY SANDWICH GIVEN. PT DENIES ANY OTHER NEEDS. CONTINUE TO MONITOR CLOSELY.
[2016-08-27 00:36] VITALS: BP 176/69
--- NOTE | 2016-08-27 00:52 | NUR ---
PT IS C/O SEVERE CHEST PAIN THAT SHE DESCRIBES FEELING LIKE SHE IS HAVING A HEART ATTACK. PT IS ALSO EXTREMELY ANXIOUS AT THIS TIME R/T NOT HAVING HER DENTURES. PT ALSO HAS NO PRN PAIN MEDICATION AND IS BEGINNING TO BE SORE FROM HER SURGERY EARLIER TODAY. I HAVE SPOKEN WITH FOIL CUTTER, MARIO PINZON, ABOUT PTS DENTURES. WE WILL CALL OR/OUTPT [facility] WHEN THEY OPEN TO CHECK ON PTS DENTURES. I WILL CALL RENAL FOR ORDERS FOR PRN PAIN MEDICATION AND POSSIBLY SOMETHING FOR ACUTE ANXIETY. EKG COMPLETED, WILL ALSO ORDER STAT CARDIAC ENZYMES. CONTINUE TO MONITOR CLOSELY.
--- NOTE | 2016-08-27 02:07 | NUR ---
DID GIVE PT PRN TYLENOL FOR HER PAIN IN LT ARM AND ABDOMEN. PT IS ALSO C/O OF HER THROAT BEING SCRATCHY AND SORE FROM BEING INTUBATED. PTS CHEST PAIN HAS SUBSIDED AND PT STATES SHE FEELS IT MAY HAVE BEEN HER NERVES FROM THE LAST FEW DAYS OF BEING IN HERE. GAVE PT CHOCOLATE PUDDING EARLIER PT WAS UNABLE TO EAT HER TURKEY SANDWICH AFTER SURGERY R/T NOT HAVING HER DENTURES. PT WAS UNABLE TO EAT THE CHOCOLATE PUDDING BECAUSE SHE WAS SO UPSET. PTS EKG SHOWS NORMAL SINUS RHYTHM WITH PROLONGED QT. WILL ADD TELEMETRY. WILL CONTINUE TO MONITOR CLOSELY.
[2016-08-27 02:56] LABS: CREATINE KINASE 40 UL (21-215)
[2016-08-27 02:57] LABS: TROPONIN-I 0.181 ng/mL (0.000-0.060)
--- NOTE | 2016-08-27 03:09 | NUR ---
SPOKE WITH CARRIE VALDIVIA, SOFTWARE ENGINEERING MANAGER FOR [facility]. SHE DID ORDER NORCO 7.5/325 1 PO Q 6 HOURS PRN PAIN, ALONG WITH NITRO 0.4 SL DIRECTED PRN CHEST PAIN. WILL ALSO CONSULT CARDIOLOGY. CONTINUE TO MONITOR CLOSELY.
[2016-08-27 04:59] VITALS: BP 161/67
--- NOTE | 2016-08-27 05:28 | NUR ---
PT RESTING COMFORTABLY, IN CLEAR DISTRESS, EASILY ROUSABLE TO VERBAL STIMULI. CONTINUE TO MONITOR CLOSELY.
[2016-08-27 07:49] VITALS: BP 144/69
[2016-08-27 07:55] LABS: CALC OSMOLALITY 285 mosm/kg (275-300); CALCIUM 8.1 mg/dL (8.5-10.1); CARBON DIOXIDE 27.3 mmol/L (21.0-32.0); CHLORIDE - SERUM 101 mmol/L (98-107); CKMB 3.4 U/L (0.0-3.6); CREATINE KINASE 55 UL (21-215); CREATININE - SERUM 3.8 mg/dL (0.6-1.3); GLUCOSE 169 mg/dL (74-106); POTASSIUM - SERUM 4.3 mmol/L (3.5-5.1); SODIUM 138 mmol/L (136-145); UREA NITROGEN 30 mg/dL (7-18); eGFR NON AFRICAN AMERICAN 12 mL/min (90-120)
[2016-08-27 07:56] LABS: TROPONIN-I 0.678 ng/mL (0.000-0.060)
[2016-08-27 08:12] LABS: BASOPHILS 0.2 % (0.0-2.0); EOSINOPHILS 1.4 % (0-7); HEMATOCRIT 25.1 % (36.0-48.0); HEMOGLOBIN 7.7 g/dL (12-16); IMMATURE GRANULOCYTES 0.5 % (0-5); LYMPHOCYTES 13.9 % (15-50); MCH 26.3 pg (26.0-34.0); MCHC 30.7 g/dL (31.0-37.0); MCV 85.7 fL (80.0-100.0); MEAN PLATELET VOLUME 11.2 fL (7.4-10.4); MONOCYTES 10.4 % (2-11); NEUTROPHILS 73.6 % (40-80); PLATELET COUNT 153 10x3/uL (130-400); RBC 2.93 10x6/uL (4.00-5.40); WBC 8.4 10x3/uL (4.8-10.8)
--- NOTE | 2016-08-27 10:36 | NUR ---
ADMINISTERED NORCO 7.5MG FOR PAIN LEVEL OF 6/10, PT UP TO SIDE OF BED, DENIES ANY NEEDS AT THIS TIME CALL LIGHT IN REACH, PARVIZ ORELLANA, WILL CONTINUE TO MONITOR.
[2016-08-27 11:18] LABS: ACLA - IGG AB <9 GPL U/mL (0-14); ACLA - IGM AB <9 MPL U/mL (0-12)
[2016-08-27 11:19] VITALS: BP 144/67
--- NOTE | 2016-08-27 11:42 | NUR ---
BLOOD SUGAR OF 209, 4 UNITS OF HUMALOG GIVEN PER SLIDING SCALE. PT DENIES ANY NEEDS AT THIS TIME. CALL LIGHT IN REACH, NAD NOTED, WILL CONTINUE TO MONITOR.
[2016-08-27 13:48] LABS: CKMB 4.5 U/L (0.0-3.6); CREATINE KINASE 74 UL (21-215)
--- NOTE | 2016-08-27 14:41 | NUR ---
STARTED UNIT OF PRBC'S VITAL SIGNS STABLE AT THIS TIME, PT DENIES ANY NEEDS OR DISCOMFORTS AT THIS TIME. NAD NOTED, WILL CONTINUE TO MONITOR.
[2016-08-27 15:25] VITALS: BP 137/61
--- NOTE | 2016-08-27 18:05 | NUR ---
UNIT OF PRBC'S FINISHED INFUSING AT THIS TIME. VITAL SIGNS STABLE, PT DENIES ANY NEEDS AT THIS TIME, CALL LIGHT IN REACH, NAD NOTED, WILL CONTINUE TO MONITOR.
[2016-08-27 19:00] VITALS: BP 139/90
[2016-08-28] VITALS (12 sets, daily range): BP systolic 141–189; BP diastolic 53–91
[2016-08-28 05:39] LABS: BASOPHILS 0.5 % (0.0-2.0); EOSINOPHILS 4.4 % (0-7); HEMATOCRIT 26.9 % (36.0-48.0); HEMOGLOBIN 8.5 g/dL (12-16); IMMATURE GRANULOCYTES 0.6 % (0-5); LYMPHOCYTES 16.7 % (15-50); MCH 27.4 pg (26.0-34.0); MCHC 31.6 g/dL (31.0-37.0); MCV 86.8 fL (80.0-100.0); MEAN PLATELET VOLUME 10.6 fL (7.4-10.4); MONOCYTES 13.5 % (2-11); NEUTROPHILS 64.3 % (40-80); PLATELET COUNT 183 10x3/uL (130-400); RDW 16.8 % (11.5-14.5); WBC 8.3 10x3/uL (4.8-10.8)
[2016-08-28 05:50] LABS: CALCIUM 8.3 mg/dL (8.5-10.1); CARBON DIOXIDE 27.8 mmol/L (21.0-32.0); CREATININE - SERUM 3.9 mg/dL (0.6-1.3)
[2016-08-28 06:15] LABS: ANTITHROMBIN III ANTIGEN 106 % (72-124); PROTEIN S - FREE 108 % (57-157); PROTEIN S - FUNCTIONAL 111 % (63-140); PROTEIN S - TOTAL >229 % (60-150)
[2016-08-28 06:17] LABS: ANION GAP 12.8 mmol/L (8-16); POTASSIUM - SERUM 4.6 mmol/L (3.5-5.1)
--- NOTE | 2016-08-28 10:47 | NUR ---
PATIENT OFF THE UNIT TO COMPUTER FORENSIC EXAMINER. TELEMETRY NOTIFIED.
--- NOTE | 2016-08-28 11:58 | NUR ---
PATIENT BACK TO UNIT FOLLOWING SPECIALIST PHYSICIAN.
--- NOTE | 2016-08-28 13:14 | NUR ---
DIALYSIS COORDINATOR: PATHWAYS: [facility] FRI/FRI/FRI @ 11:00. ELMER LYNN.
--- NOTE | 2016-08-28 13:15 | OP ---
PATIENT NAME: CAM PETERSON MEDICAL RECORD: [id number] :45 LOCATION:D.M2 D.2104 ADMISSION DATE:08/23/16 SURGEON: PHUC BOCANEGRA MD DATE OF OPERATION: 08/26/2016 PREOPERATIVE DIAGNOSIS: End-stage renal disease and dependence on hemodialysis. POSTOPERATIVE DIAGNOSIS: End-stage renal disease and dependence on hemodialysis. OPERATION PERFORMED: 1. Laparoscopic implantation of peritoneal dialysis catheter. 2. Creation of a left brachial-basilic Nona type AV fistula as a planned first stage of 2 in order to construct a brachial artery to translocated basilic vein AV fistula. SURGEON: Phuc Bocanegra MD ANESTHESIA: General per SAS ADMINISTRATOR via LMA. REFERRING PHYSICIAN: Dr. Amor. PREOPERATIVE NOTE: Ms. Peterson is a very nice 70-year-old white female, who has only begun on hemodialysis within the past month. She had several right internal jugular tunneled dialysis catheters placed over at [facility], which repeatedly failed over nonfunctional. She most recently had a tunneled dialysis catheter placed at [facility] via the left internal jugular vein and that catheter likewise became dysfunctional and indeed displaced. I brought her to the operating room on Friday, the and inserted a tunneled dialysis catheter via the right femoral vein after first attempting to use her internal jugular without success. She now has had dialysis with her femoral catheter and she returned to the operating room with plans to perform a laparoscopy and implant a peritoneal dialysis catheter and then also to create a fistula in her left arm. She has rather small vessels and as anticipated, she will need a 2 stage brachial artery to translocated basilic vein fistula. Under general endotracheal anesthesia in supine position, the patient was prepped and draped in a sterile manner. The abdomen was accessed with a 5 mm Optiview XL port through a small incision in the left upper quadrant. Pneumoperitoneum was established with carbon dioxide. An additional 5-mm port was placed just below the level of the umbilicus on the left in the left lower quadrant. The patient was found to have no adhesions and no significant omentum and no hernias. I made an incision in on the right at about the level of the umbilicus and carried this incision down to the anterior rectus sheath and then inserted a needle through the anterior abdominal wall and inserted a guidewire through that and then a dilator peel-away introducer and lastly, a swan neck dual cuff coil peritoneal dialysis catheter was inserted. It was positioned in the pelvis and the deeper of the 2 Dacron felt cuffs was placed within the rectus sheath and just superficial to the peritoneum. The catheter was flushed with saline and noted to function well. It was placed in a laterally and inferiorly directed subcutaneous tunnel to a small incision which functioned as the exit site. The catheter was again flushed with saline and then heparin locked with heparin 100 units per cc clamped and capped. The carbon dioxide was allowed to escape and the instrumentation removed from the abdomen. The incisions were infiltrated with 0.25% Marcaine with epinephrine and the skin of OPERATIVE REPORT [id number] CAM PETERSON the 2 laparoscopic incisions closed with interrupted inverted 3-0 Vicryl and Dermabond glue. The larger incision on the right which was about an inch in length was closed with interrupted inverted 3-0 Vicryl after irrigation with antibiotic solution and infiltration with Marcaine. The skin was closed with a running intracuticular 4-0 Monocryl and Dermabond glue. The exit site was sealed also with glue. The surrounding skin painted with Mastisol and then quarter-inch Steri-Strips were used to help further secure the catheter. A chlorhexidine containing Biopatch was applied and all have been further dressed with Maxorb Ag and Tegaderm and then a 4 x 4 Medipore dressing was used to cover the entire catheter. The other sites were dressed with Maxorb Ag, Tegaderm and Cavilon skin prep. The patient's arm was then prepped and draped in a sterile manner and I approached the left arm first with ultrasound after applying topical nitroglycerin and using a [place] drain as a proximal venous tourniquet. I found that indeed the basilic vein was really the only suitable vessel for creation of an AV fistula. I made an incision over the medial aspect of the antecubital space and just below it and exposed the brachial artery and the median cubital vein draining to the basilic vein. The vessels were controlled with Silastic loops as needed. They were approximated side to side and occluded. The vein was opened and flushed with heparinized saline. The artery was then opened and flushed proximally and distally with heparinized saline and a 5-mm long [id number]-fn-[id number] anastomosis was then performed with running 6-0 Prolene. Upon completion of the anastomosis and release of the occluding loops, excellent flow was established medially within the fistula. The vein distal to the anastomosis was closed with a 3-0 Vicryl ligature and small Hemoclip to prevent pressurizing the forearm veins and the cephalic vein, which might cause problems with severe swelling. The wound was irrigated with Ancef/gentamicin solution. It was irrigated and infiltrated with 0.25% Marcaine without epinephrine and closed with interrupted inverted 3-0 Vicryl and then running intracuticular 4-0 Monocryl and Dermabond glue. It was dressed with Maxorb Ag, Tegaderm and Cavilon skin prep. The patient was then awakened and extubated and taken to the recovery room in stable condition. Blood loss during the procedure was trivial and the replaced and all sponges, instruments, and needles were accounted for. No drain was used and no surgical specimen was submitted for histopathology. PLAN: The patient may have dialysis here tomorrow, quite possibly be able to go home tomorrow if her HemoSplit and femoral dialysis catheter is functioning adequately. She will need to see me in my office next week for wound check and dressing change. She will need to see the [facility] peritoneal dialysis nurse next week for catheter flushed and dressing change. I expect that she will need to wait about 4 weeks before the peritoneal dialysis catheter is used for full volume exchanges and in 2-4 weeks, I would like to return the patient to the operating room for the second stage and creation of the left brachial artery to translocated basilic vein fistula. TRANSINT:[id number] Voice Confirmation ID: [id number] DOCUMENT ID: [id number] OPERATIVE REPORT [id number] CAM PETERSON JAMES MD at 1315 CC: [id number] DICTATION DATE: 08/27/16 1119 MOLDER LABELS: 08/27/16 1826 [facility] [address] [place] [id number]
--- NOTE | 2016-08-28 15:56 | NUR ---
Patient Name: CAM FANG Admission Status: Elective Accout number: [id number] Admission Date: 08-23-2016 : 1945 Admission Diagnosis:STENOSIS OF OTHER VASCULAR PROSTH YVONNE/MADELYN, INIT Attending: JOSE Current LOS: 5 Anticipated DC Date: UNKNOWN Planned Disposition: Home with Home Health Primary Insurance: MEDICARE A & B Discharge Planning Comments: CM MET WITH PATIENT AND FRIEND, TEENA TUSHAR, TO DISCUSS DISCHARGE PLANNING / NEEDS. PATIENT STATES HER DISCHARGE PLAN IS TO RETURN HOME. STATES HER HOME ENVIORONMENT IS SAFE. STATES THERE ARE TWO STEPS TO ENTER THE HOME (NO HAND RAIL PRESENT). STATES THAT PRIOR TO HOSPITALIZATION SHE WAS INDEPENDENT WITH ALL ADL'S AND IADL'S. STATED SHE ONLY NEEDED ASSISTANCE WITH TRANSPORTATION WHICH WAS PROVIDED BY HER FRIENDS: GARCIASALVADOR TORRES [phone] AND WILFREDO IGNACIO TUSHAR [phone]. STATES THAT SHE TAKES THE DIALYSIS VAN TO HD ON MONDAYS/WEDNESDAYS/FRIDAYS. PATIENT STATES SHE NEEDS A SHOWER CHAIR WHEN SHE RETURNS HOME BECAUSE SHE FEELS THAT SHE IS ALOT WEAKER THAN PRIOR TO HOSPITALIZATION. PATIENT AGREED TO ACCEPT HOME HEALTH SERVICES [facility] DISCHARGE IF HER DOCTOR AGREES THAT SHE NEEDS IT. PATIENT MAY BENEFIT FROM PHYSICAL THERAPY AND HOME HEALTH AIDE THROUGH HOME HEALTH. PATIENT IS CURRENTLY ON OXYGEN AND DID NOT HAVE HOME O2 PRIOR TO HOSPITALZIATION. WILL NEED WALK TEST PRIOR TO DC. PATIENT CHOICE [facility]. CM WILL ARRANGE HOME HEALTH, SHOWER CHAIR AND WALK TEST FOR O2 PRIOR TO DC. PATIENT AND FRIEND DENY ANY OTHER NEEDS OR CONCERNS AT THIS TIME. CM WILL CONTINUE TO FOLLOW AND ASSIST NEEDED WITH DISCHARGE PLANNING/NEEDS. Is the patient Alert and Oriented? Yes 0 * How many steps to enter\exit or inside your home? 2 0 * PCP VERSER 0 * Pharmacy [facility] 0 * Preadmission Environment Home Alone 0 * ADLs Independent 0 * Equipment None 0 * List name and contact numbers for known caregivers / representatives who currently or will assist patient after discharge: FRIEND, GARCIASALVADOR TORRES [phone] FRIEND, WILFREDO IGNACIO TUSHAR [phone] 0 * Community resources currently utilized None 0 * Please name any agencies selected above. AGREED TO SET UP [facility] UPON DISCHARGE IF MD THINKS SHE NEEDS IT. 0 * Additional services required to return to the preadmission environment? Yes 0 * Can the patient safely return to the preadmission environment? Yes 0 * Has this patient been hospitalized within the prior 30 days at any hospital? Yes Database Reporting Consultant: Omaira Naqvi
--- NOTE | 2016-08-28 20:14 | NUR ---
ROUNDS. PT RESTING IN BED WITH EYES CLOSED. RESPS EVEN/NONLABORED. NO DISTRESS. SEE SHIFT ASSESSMENT. CPOC.
--- NOTE | 2016-08-28 21:43 | NUR ---
ROUSED UP FOR HS BLOODSUGAR CHECK. FSBS 162. PT IS ALERT AND ORIENTED. STILL HAS FEMSTOP ON BUT NOT PULLED TIGHT. REMOVED AT THIS TIME. ASSESSED LEFT GROIN WHERE PT HAS MARKINGS FROM WHAT WAS STARTING A HEMATOMA BEFORE FEMSTOP APPLIED. SITE NOW LOOKS GOOD. NO SWELLING, MILD DISCOLORATION. WILL LET REMAINING IVF RUN AT 100ML/HR UNTIL BAG COMPLETE THEN SALINE LOCK IV. CALL LIGHT IN REACH. BED ALARM ACTIVATED.
[2016-08-29] VITALS: BP 143/62
[2016-08-29 04:00] VITALS: BP 180/75
[2016-08-29 05:32] LABS: BASOPHILS 0.3 % (0.0-2.0); HEMATOCRIT 26.6 % (36.0-48.0); HEMOGLOBIN 8.5 g/dL (12-16); IMMATURE GRANULOCYTES 0.5 % (0-5); LYMPHOCYTES 12.6 % (15-50); MCH 27.8 pg (26.0-34.0); MCV 86.9 fL (80.0-100.0); MONOCYTES 11.8 % (2-11); NEUTROPHILS 72.8 % (40-80); PLATELET COUNT 212 10x3/uL (130-400); RBC 3.06 10x6/uL (4.00-5.40); RDW 17.5 % (11.5-14.5); WBC 9.3 10x3/uL (4.8-10.8)
[2016-08-29 05:38] LABS: ANION GAP 14.6 mmol/L (8-16); CALCIUM 8.2 mg/dL (8.5-10.1); CARBON DIOXIDE 26.6 mmol/L (21.0-32.0); CREATININE - SERUM 3.3 mg/dL (0.6-1.3); POTASSIUM - SERUM 4.2 mmol/L (3.5-5.1)
--- NOTE | 2016-08-29 07:45 | NUR ---
PATIENT SITTING ON THE SIDE OF THE BED. HYPERVERBAL AND WANTS TO GO HOME. RELATES PAIN TO NEW LEFT AV FISTULA / AND HURTS ALL NIGHT. PATIENT ALSO HAS PD CATHETER TO RIGHT LOWER ABDOMEN AND A RIGHT GROIN HEMOSPLIT. RIGHT FOREARM SALINE LOCK PATENT. TELEMETRY 88 SR. CALL LIGHT WITHIN REACH.
[2016-08-29 08:15] VITALS: BP 145/69
[2016-08-29 10:28] VITALS: Ht 157.5 cm; Wt 60.3 kg
[2016-08-29 12:10] VITALS: BP 130/45
[2016-08-29 12:17] LABS: PROTEIN C - ANTIGEN 122 % (60-150); PROTEIN C - FUNCTIONAL 166 % (73-180)
--- NOTE | 2016-08-29 12:17 | NUR ---
FSBS 225. 4 UNITS PER S/S ADMINISTERED.
[2016-08-29 16:00] VITALS: BP 156/66
--- NOTE | 2016-08-29 20:01 | NUR ---
RESTING IN BED. ALERT/ORIENTED. ON A 1ST STEP MATTRESS. SR PER TELEMETRY. RIGHT GROIN HEMOSPLIT, WILL HAVE HEMODIALYSIS TOMORROW. SALINE LOCK TO RFA. O2 @ 2L/NC WITH NONLABORED RESPIRATIONS. CPOC. CALL LIGHT IN REACH. SEE SHIFT ASSESSMENT.
[2016-08-29 20:13] VITALS: BP 128/56
[2016-08-30 02:00] VITALS: BP 128/88
[2016-08-30 05:38] LABS: BASOPHILS 0.3 % (0.0-2.0); EOSINOPHILS 5.1 % (0-7); HEMATOCRIT 25.1 % (36.0-48.0); HEMOGLOBIN 7.8 g/dL (12-16); IMMATURE GRANULOCYTES 0.6 % (0-5); LYMPHOCYTES 17.3 % (15-50); MCHC 31.1 g/dL (31.0-37.0); MCV 86.9 fL (80.0-100.0); MEAN PLATELET VOLUME 10.3 fL (7.4-10.4); MONOCYTES 15.5 % (2-11); NEUTROPHILS 61.2 % (40-80); PLATELET COUNT 215 10x3/uL (130-400); RBC 2.89 10x6/uL (4.00-5.40); RDW 17.9 % (11.5-14.5)
[2016-08-30 05:50] LABS: ANION GAP 16.1 mmol/L (8-16); CALCIUM 8.2 mg/dL (8.5-10.1); POTASSIUM - SERUM 4.1 mmol/L (3.5-5.1)
[2016-08-30 05:55] LABS: CREATININE - SERUM 5.4 mg/dL (0.6-1.3)
--- NOTE | 2016-08-30 07:41 | NUR ---
AM ROUNDING- RECEIVED REPORT FROM REVOLVING FIELD ASSEMBLER NURSE FARHEEN. PT IS CURRENTLY LAYING IN BED ON BACK WITH EYES OPEN RESTING. PT IS WONDERING WHEN SHE WILL BE GOING HOME. ON MONITOR SHOWING SR, HR 83. ON FIRST STEP OVERLAY MATTRESS. RESERVE LEFT ARM FOR AVF THAT PER REPORT HAS NOT MATURED YET. RIGHT GROIN HEMOSPLIT SEEN FOR DIALYSIS ACCESS THAT PER REPORT PT DIALYZES ON M, W, AND F. IV SEEN TO RIGHT FOREARM THAT IS CURRENTLY SALINE LOCKED. ON 02 AT 2L VIA NC. PD CATHETER SEEN TO ABDOMINAL AREA THAT PER REPORT IS NOT IN USE CURRENTLY. PT IS ALERT AND ORIENTED. UP AD TANA. NO NEED AT CURRENT TIME. DR. JENSEN IS ON UNIT. INFORMED HIM OF PTS RBC, HGB, AND HCT LEVEL. NO NEW ORDERS RECEIVED. WILL CONTINUE WITH PLAN OF CARE.
[2016-08-30 08:14] VITALS: BP 170/73
[2016-08-30] MEDS ORDERED: EFFIENT10 MG PO (13:03)
[2016-08-30] MEDS ORDERED: SYNTHROID88 MCG PO (13:04)
--- NOTE | 2016-08-30 13:05 | NUR ---
1030- PT TO DIALYSIS VIA BED.
--- NOTE | 2016-08-30 14:39 | NUR ---
PT BACK FROM DIALYSIS VIA BED.
[2016-08-30 16:52] VITALS: BP 138/58
--- NOTE | 2016-08-30 17:23 | NUR ---
Patient Name: CMA FANG Encounter No: [id number] : 1945 Primary Insurance: MEDICARE A & B Anticipated DC Date: 08-30-2016 Planned Disposition: Home with Home Health External Planned Provider: [facility] [employer] [facility] follow-up note: CM RECEIVED DISCHARGE ORDER, SPOKE TO PT IN ROOM REGARDING DISCHARGE NEEDS. PT REPORTS SHE WILL GO HOME TODAY, FRIEND TO TRANSPORT. PT REQUESTS HOME HEALTH FOR PHYSICAL THERAPY REPORTING SHE IS NOT STRONG SHE WAS WHEN SHE ARRIVED AND WOULD LIKE A SHOWER CHAIR AT HOME TO ENSURE SHE DOES NOT FALL IN THE SHOWER WHILE BATHING. CM EXPLAINED THAT MEDICARE DOES NOT COVER COSTS OF SHOWER CHAIR AND CERTAIN CATAGORIES OF MEDICAID DOES NOT EITHER. PT WOULD LIKE CM TO SEE IF SHE CAN GET INSURANCE TO COVER THE COSTS OF SHOWER CHAIR. PT AGREES WITH USE OF [place] [employer] IT IS CLOSE TO HER HOME. PT REQUESTED HOME HEALTH WITH [facility], CHOICE SIGNED. IMPORTANT MESSAGE FROM MEDICARE PROVIDED AND EXLAINED. CM CALLED [email or web address], , SPOKE TO PARMINDER WHO REPORTS SHE WILL PROCESS ORDER AND CONTACT PT ON FRIDAY SHE IS NOT ABLE TO CHECK MEDICAID OVER THE WEEKEND. CM FAXED REFERRAL TO [email or web address] AT [phone]. CM CALLED [facility], , PROVIDED HOME HEALTH REFERRAL FOR PHYSICAL THERAPY, HOME HEALTH WILL ATTEMPT TO ADMIT PT AFTER DIALYSIS ON FRIDAY AND IF UNABLE, WILL ADMIT ON FRIDAY NEXT WEEK. CM SPOKE TO PT WHO IS IN AGREEMENT WITH DISCHARGE PLAN. CM FAXED REFERRAL TO [facility] AT [phone]. NO FURTHER DISCHARGE NEEDS IDENTIFIED. Hernandez Mejia, CASE MANAGEMENT
--- NOTE | 2016-08-30 17:28 | NUR ---
D/C INSTRUCTIONS EXPLAINED TO PT. D/C PAPERWORK SIGNED BY PT AND PLACED IN CHART. HEART MONITOR REMOVED AND RETURNED TO [facility] WITH TELEMETRY. IV REMOVED TO RIGHT FOREARM WITH CATH TIP INTACT. COVERED SITE WITH 2X2 GUAZE PADS AND SECURED WITH TEGADERM. PT ASKED IF WE WERE GOING TO TAKE STITCHES OUT TO LEFT SIDE OF NECK AREA. PAGED CARRIE VALDIVIA NP TO SEE ABOUT THIS. RECEIVED CALLBACK FROM CARRIE VALDIVIA NP. MERRITT BUTLER STATES TO GO AHEAD AND LEAVE STITCHES IN UNTIL PT COMES BACK FOR DIALYSIS AND THEY WILL ADDRESS IT THEN. WILL DO ORDERED. 1734- PT D/C VIA WHEELCHAIR TO HOME.
[2016-08-31 08:16] LABS: FOLATE (FOLIC ACID) - SERUM 5.2 ng/mL (>3.0)
[2016-09-02 10:12] LABS: ACTIVATED PROTEIN C-RESISTANCE 2.6 ratio (2.0-3.5)
[2016-09-02 11:13] LABS: PROTEIN S - FREE 116 % (57-157); PROTEIN S - FUNCTIONAL 114 % (63-140); PROTEIN S - TOTAL 190 % (60-150)
[2016-09-02 12:12] LABS: ACLA - IGG AB <9 GPL U/mL (0-14); ACLA - IGM AB <9 MPL U/mL (0-12)
--- NOTE | 2016-09-04 08:06 | OP ---
PATIENT NAME: CAM FANG MEDICAL RECORD: [id number] :[birth year] LOCATION:D.M2 D.2104 ADMISSION DATE:08/23/16 SURGEON: CONCEPCION BALBUENA MD DATE OF OPERATION: 08/28/2016 PROCEDURES: 1. PTCA stent left circumflex, first obtuse marginal. 2. Left heart catheterization. 3. Selective coronary angiography. 4. Vein graft angiography. 5. HOYT angiography. 6. Left ventriculogram. INDICATION: Non-Q-wave myocardial infarction. PROCEDURE IN DETAIL: After informed consent was obtained and after a detailed explanation of risks, benefits as well as alternative therapies, the patient elected to proceed with angiogram and angioplasty. The left femoral area was prepped and draped in normal sterile fashion. Left femoral artery was cannulated via modified Seldinger technique with placement of 6-[place] Islander sheath. All catheters exchanged through this sheath. FINDINGS: Left ventriculogram was performed in standard 30-degree PILLAI view, reveals preserved cardiac wall motion, ejection fraction estimated at 55%. SELECTIVE CORONARY ANGIOGRAPHY: 1. Left main stenosis with no significant angiographic disease. 2. Left anterior descending is totally occluded. 3. HOYT to the LAD is widely patent. 4. Left circumflex has a subtotal occlusion of the first obtuse marginal, this is not grafted. Circumflex stent has an 80% stenosis in the mid vessel. The second obtuse marginal is grafted and this graft is widely patent. 5. Right coronary is totally occluded. 6. Vein graft to the right coronary is widely patent. PTCA STENT OF THE LEFT CIRCUMFLEX FIRST OBTUSE MARGINAL: The stent used was a 2.0 x 28 mm Mini Vision. Result was 0% residual stenosis. OVERALL IMPRESSION: Successful percutaneous transluminal coronary angioplasty stent of the left circumflex first obtuse marginal going from 95% initial stenosis to 0% residual. TRANSINT:[id number] Voice Confirmation ID: [id number] DOCUMENT ID: [id number] CONCEPCION BALBUENA MD at 0806 CC: [id number] DICTATION DATE: 08/28/16 1125 DATA MANAGER: 08/28/16 1329 DIS IN 08/30/16 [place] [address]
[2016-09-04 13:16] LABS: METHYLMALONIC ACID 796 nmol/L (0-378)
== END 2016-08-30 17:38 | disposition home or self-care (01) | DRG 248 ==
LOC: D.M2 13:32
PROVIDERS: Anesthesiology; Internal Medicine; Internal Medicine Hematology & Oncology; Internal Medicine Nephrology; Surgery; ADMIT Internal Medicine Nephrology
PROC: 0JH Subcutaneous Tissue and Fascia, Insertion (ICD-10-PCS; 2016-08-24)
PROC: 0WHG43Z Insertion of Infusion Device into Peritoneal Cavity, Percutaneous Endoscopic Approach (ICD-10-PCS; principal; 2016-08-26 16:00)
PROC: 02703DZ Dilation of Coronary Artery, One Artery with Intraluminal Device, Percutaneous Approach (ICD-10-PCS; 2016-08-26 16:00)
PROC: 03180ZF Bypass Left Brachial Artery to Lower Arm Vein, Open Approach (ICD-10-PCS; 2016-08-26 16:00)
PROC: 4A023N7 Measurement of Cardiac Sampling and Pressure, Left Heart, Percutaneous Approach (ICD-10-PCS; 2016-08-28)
PROC: B2111ZZ Fluoroscopy of Multiple Coronary Arteries using Low Osmolar Contrast (ICD-10-PCS; 2016-08-28)
PROC: B2121ZZ Fluoroscopy of Single Coronary Artery Bypass Graft using Low Osmolar Contrast (ICD-10-PCS; 2016-08-28)
PROC: B2151ZZ Fluoroscopy of Left Heart using Low Osmolar Contrast (ICD-10-PCS; 2016-08-28)
DX: T82.858A Stenosis of other vascular prosthetic devices, implants and grafts, initial encounter (principal); N18.6 End stage renal disease; I21.4 Non-ST elevation (NSTEMI) myocardial infarction; I12.0 Hypertensive chronic kidney disease with stage 5 chronic kidney disease or end stage renal disease; E72.11 Homocystinuria; Y83.8 Other surgical procedures as the cause of abnormal reaction of the patient, or of later complication, without mention of misadventure at the time of the procedure; E11.22 Type 2 diabetes mellitus with diabetic chronic kidney disease; D63.1 Anemia in chronic kidney disease; I25.10 Atherosclerotic heart disease of native coronary artery without angina pectoris; E78.5 Hyperlipidemia, unspecified; E03.9 Hypothyroidism, unspecified; Z87.891 Personal history of nicotine dependence

== ENCOUNTER 2016-09-27 05:33 | Day surgery (SDC) | payer MEDICARE ==
[2016-09-26 13:20] LABS: BASOPHILS 0.6 % (0-2); EOSINOPHILS 6.3 % (0-7); HEMATOCRIT 30.1 % (36.0-48.0); HEMOGLOBIN 9.1 g/dL (12-16); IMMATURE GRANULOCYTES 2.2 % (0-5); LYMPHOCYTES 16.1 % (15-50); MCH 26.8 pg (26.0-34.0); MCHC 30.2 g/dL (31.0-37.0); MCV 88.5 fL (80.0-100.0); MEAN PLATELET VOLUME 9.2 fL (7.4-10.4); MONOCYTES 8.2 % (2-11); NEUTROPHILS 66.6 % (40-80); RDW 16.4 % (11.5-14.5); WBC 6.3 10x3/uL (4.8-10.8)
[2016-09-26 13:25] LABS: PLATELET COUNT 368 10x3/uL (130-400)
[2016-09-26 13:27] LABS: ANION GAP 10.6 mmol/L (8-16); CALCIUM 8.3 mg/dL (8.5-10.1); CARBON DIOXIDE 30.6 mmol/L (21.0-32.0); CREATININE - SERUM 1.6 mg/dL (0.6-1.3); POTASSIUM - SERUM 3.2 mmol/L (3.5-5.1)
[2016-09-26 13:28] LABS: INR 0.99 (0.85-1.17); PROTIME 12.9 SECONDS (11.6-15.0)
[2016-09-26 13:30] LABS: APTT 85.2 SECONDS (22.8-39.4)
[~2016-09-27] VITALS: Ht 157.5 cm; Wt 59.0 kg
[~2016-09-27 05:33] MED LIST changes: +EFFIENT10 MG PO; +HYDRALAZINE HCL50 MG PO; +ISOSORBIDE MONO60 M1 PO; +SYNTHROID88 MCG PO
[2016-09-27] MEDS ORDERED: SYNTHROID88 MCG PO (06:59)
[2016-09-27] MEDS ORDERED: COREG6.25 MG PO (07:01)
[2016-09-27] MEDS ORDERED: NIFEDIPINE ER60 MG PO (07:03)
[2016-09-27 07:07] VITALS: BP 142/70; Ht 157.5 cm; Wt 59.0 kg
--- NOTE | 2016-09-27 07:52 | NUR ---
LAB CALLED FOR STAT LAB. YADIRA INFORMED OF PTT ELEVATED YESTERDAY AND RESULTS FROM TODAY NOT BACK YET.
--- NOTE | 2016-09-27 09:50 | NUR ---
ANESTHESIA REPORTED PRE OP BP 170/80 PRIOR PROCEEDURE
--- NOTE | 2016-09-28 14:15 | OP ---
PATIENT NAME: CAM PETERSON MEDICAL RECORD: [id number] :[birth year] LOCATION:D.OPS ADMISSION DATE: SURGEON: PHUC BOCANEGRA MD DATE OF OPERATION: 09/27/2016 REFERRING PHYSICIAN: Nilay Marie MD. PREOPERATIVE DIAGNOSIS: Mechanical complication of peritoneal dialysis catheter. POSTOPERATIVE DIAGNOSIS: Mechanical complication of peritoneal dialysis catheter. OPERATION PERFORMED: Initially, a peritoneogram with guidewire manipulation of peritoneal dialysis catheter followed by laparoscopy with revision by repositioning of peritoneal dialysis catheter. SURGEON: Phuc Bocanegra MD. ANESTHESIA: General endotracheal. PREOPERATIVE NOTE: Ms. Peterson is a 71-year-old white female patient with a rather severe coronary artery disease and end-stage renal disease. She is presently on chronic hemodialysis with a right femoral tunneled dialysis catheter. She has had multiple prior internal jugular catheters, which failed or were malpositioned or did not work. She is now status post the first of 2 planned stages to create a brachial artery to translocated basilic vein AV fistula. The Nona fistula, which I have already created there in the left arm is patent and dilating and maturing nicely. She has also had a peritoneal catheter placed, which would be fine to start using for peritoneal dialysis at this time; however, it is not irrigating well or draining. I have been asked to revise it or replace it. The patient was scheduled for the peritoneal dialysis catheter procedure today, but was not scheduled for the second stage completion of her translocated fistula. There was some initial confusion as to her cardiac status. I understand now that her cardiac status is fine for her to have anesthesia and I believe she can have her fistula translocated in the near future, but today we are only going to do the peritoneal catheter. DESCRIPTION OF PROCEDURE: Initially under MAC with the patient in supine position, she was prepped and draped in sterile manner. The peritoneal catheter was accessed and flushed with saline. There was moderate resistance. Contrast was injected, which revealed apparent blockage of the majority of the coiled portion, the catheter was in good position in the pelvis it appeared. I tried to clear the lumen of the catheter and reposition it with an Amplatz stiff guidewire down through the lumen of the peritoneal catheter, but this was unsuccessful. When contrast injection was repeated, it really had cleared only a small portion of the catheter and the catheter, though irrigated slightly easier, still would not aspirate. Therefore, the patient was given a general endotracheal anesthetic and the abdomen was accessed with a 5-mm Optiview XL type port with a 0-degree 5-mm laparoscope in place through a small incision in the left upper quadrant. Pneumoperitoneum was established with carbon dioxide and a single additional 5-mm port was placed in the left lower quadrant just below the level of the umbilicus. The catheter was easily visualized and was pulled up into the upper abdomen with gentle traction. There did not seem to be any significant adhesions to the catheter, there was no evidence of infection or OPERATIVE REPORT [id number] CAM PETERSON inflammation around it. It was somewhat mysterious as to exactly why the catheter was not functioning. The patient was placed in a pretty steep Trendelenburg position, so that the small bowel fell back out of the pelvis and I really could not see a problem there. The catheter was then repositioned in the depths of the pelvis, it was irrigated again with saline and noted to irrigate very freely through all of the perforations in the coiled portion of the catheter and through very end of the coiled portion of the catheter. The patient was taken out of Trendelenburg position and the catheter itself heparin locked and clamped. The laparoscopic ports were removed after evacuating insufflated carbon dioxide. The wounds were infiltrated with 0.25% Marcaine with epinephrine and closed with interrupted inverted 3-0 Vicryl and Dermabond glue. They were dressed with Maxorb Ag, Tegaderm and Cavilon skin prep. The patient was awakened from her anesthetic and extubated and taken to the recovery room in stable condition. There was minimal blood loss during the procedure and all sponges, instruments and needles were accounted for. No drain was used and no surgical specimen was submitted for histopathology. PLAN: The patient will continue all of her home medications and her usual renal diet and dialysis schedule with her femoral catheter. I will ask that the [facility] PD nurses be notified that I think she should go ahead and start on peritoneal dialysis with this catheter now soon as possible. Also, I would like her to be returned to the operating room in about 2 more weeks for conversion or the second stage operation and construction of a translocated basilic vein fistula. TRANSINT:[id number] Voice Confirmation ID: [id number] DOCUMENT ID: [id number] PHUC BOCANEGRA MD at 1415 CC: NILAY MARIE MD [id number] DICTATION DATE: 09/27/16 1334 APPLE PEELER OPERATOR: 09/27/160 [facility] 09/27/16 [id number] [place] [address]
== END 2016-09-27 11:25 | disposition home or self-care (01) ==
LOC: D.OPS 05:33 → D.PAN 08:00 → D.OPS 11:25
PROVIDERS: Surgery
DX: T85.691A Other mechanical complication of intraperitoneal dialysis catheter, initial encounter (principal); N18.6 End stage renal disease; Z99.2 Dependence on renal dialysis; I25.10 Atherosclerotic heart disease of native coronary artery without angina pectoris

== ENCOUNTER 2016-09-30 01:16 | Inpatient (IN) | payer MEDICARE ==
[2016-09-30] VITALS (7 sets, daily range): BP systolic 87–161; BP diastolic 40–72; BMI 23.8
[~2016-09-30] VITALS: Ht 157.5 cm; Wt 66.1 kg
[~2016-09-30 01:16] MED LIST changes: +COREG6.25 MG PO; +NIFEDIPINE ER60 MG PO
[2016-09-30 01:42] LABS: HEMATOCRIT 23.8 % (36.0-48.0); LYMPHOCYTES 8.8 % (15-50); MCH 26.9 pg (26.0-34.0); MCHC 31.1 g/dL (31.0-37.0); MCV 86.5 fL (80.0-100.0); MEAN PLATELET VOLUME 10.3 fL (7.4-10.4); NEUTROPHILS 83.6 % (40-80); PLATELET COUNT 314 10x3/uL (130-400); RBC 2.75 10x6/uL (4.00-5.40); RDW 16.8 % (11.5-14.5); WBC 9.8 10x3/uL (4.8-10.8)
[2016-09-30 01:55] LABS: HEMOGLOBIN 7.4 g/dL (12-16)
[2016-09-30 02:15] LABS: ALBUMIN 2.5 g/dL (3.4-5.0); ANION GAP 19.5 mmol/L (8-16); BILIRUBIN - TOTAL 0.36 mg/dL (0.2-1.3); CALCIUM 8.1 mg/dL (8.5-10.1); CARBON DIOXIDE 19.5 mmol/L (21.0-32.0); CREATININE - SERUM 4.5 mg/dL (0.6-1.3); PROTEIN - SERUM 6.3 g/dL (6.4-8.2)
[2016-09-30 02:16] LABS: TROPONIN-I 0.115 ng/mL (0.000-0.060)
--- NOTE | 2016-09-30 03:00 | NUR ---
RECEIVED PT TO ROOM 2131, AROUSES TO VOICE BUT UNABLE TO STAY AWAKE LONGER THAN FEW SECONDS. BP 87/41. TELE SHOWING JUNTIONAL RYTHYM 56.
--- NOTE | 2016-09-30 04:00 | NUR ---
I/O CATH COMPLETE WITH 50 CC URINE OUTPUT. SENT TO LAB FOR UA/CULTURE SET UP.
--- NOTE | 2016-09-30 04:10 | NUR ---
UNIT PRBC STARTED. PT VERBALIZED CONSENT BUT UNABLE TO SIGN. WITNESSED BY SECOND NURSE. SEE BLOOD FLOWSHEET FOR VS.
[2016-09-30 04:19] LABS: APPEARANCE CLOUDY (CLEAR); BILIRUBIN NEGATIVE (NEGATIVE); COLOR YELLOW (YELLOW); GLUCOSE 100 mg/dL (NEGATIVE); KETONE NEGATIVE (NEGATIVE); LEUKOCYTE ESTERASE NEGATIVE (NEGATIVE); NITRITE NEGATIVE (NEGATIVE); PROTEIN 3+ mg/dL (NEGATIVE); SPECIFIC GRAVITY 1.015 (1.005-1.020); UROBILINOGEN NORMAL (NORMAL)
[2016-09-30 04:22] LABS: AMORPHOUS SEDIMENT >1+ /lpf (NONE SEEN); BACTERIA MANY /hpf (NONE SEEN); EPITHELIAL CELLS 0-5 /hpf (0-5); GRANULAR CAST 0-5 /lpf (NONE SEEN); HYALINE CAST OCC /lpf (NONE SEEN); MUCUS <1+ /lpf (NONE SEEN); RED CELLS - URINE 0-5 /hpf (0-5); WHITE CELLS - URINE 0-5 /hpf (0-5)
--- NOTE | 2016-09-30 04:40 | NUR ---
UA RESULTS CALLED TO DR OROURKE REQUESTED.
--- NOTE | 2016-09-30 05:26 | NUR ---
VS UNCHANGED FROM ADMISSION. TOLERATING BLOOD TRANSFUSION WELL WITH NO S/S REACTION.
--- NOTE | 2016-09-30 15:53 | NUR ---
SCD'S ON DONIS LE
--- NOTE | 2016-09-30 16:33 | NUR ---
PATIENT HAS BEEN MORE AWAKE THIS PM. FAMILY WITH PT. DIALYSIS ATTEMPTED BUT ACCESS WAS CLOGGED.
--- NOTE | 2016-09-30 19:50 | NUR ---
PT RECEIVED LYING IN BED WATCHING TV AT THIS TIME. IV NOTED TO RIGHT HAND INFUSING 1 UNIT PRBCS AT THIS TIME. ASSESSMENT COMPLETED PER FLOW SHEET AT THIS TIME. PT DENIES NEEDS. BED LOW. PHONE AND CALL LIGHT IN REACH. SRX2.
--- NOTE | 2016-09-30 22:17 | NUR ---
PT FSBS 189. ADMINISTERED 4 UNITS HUMALOG TO LUQ ABD AT THIS TIME. PT DENIES NEEDS. BED LOW. PHONE AND CALL LIGHT IN REACH. SRX2.
--- NOTE | 2016-10-01 00:23 | NUR ---
PT RESTING QUIETLY AT THIS TIME WITH EYES CLOSED. RESPIRATIONS EVEN, NON-LABORED. NO ACUTE DISTRESS NOTED AT THIS TIME. BED LOW. PHONE AND CALL LIGHT IN REACH. SRX2.
[2016-10-01 04:01] VITALS: BP 173/76
--- NOTE | 2016-10-01 04:24 | NUR ---
INITIATED NEW BAG OF NS AT THIS TIME. PT DENIES NEEDS. WATCHING TV AT THIS TIME AAOX3. BED LOW. PHONE AND CALL LIGHT IN REACH. SRX2.
[2016-10-01 06:02] LABS: BASOPHILS 0.2 % (0-2); EOSINOPHILS 3.5 % (0-7); IMMATURE GRANULOCYTES 0.8 % (0-5); LYMPHOCYTES 12.8 % (15-50); MCH 27.5 pg (26.0-34.0); MCHC 31.7 g/dL (31.0-37.0); MCV 86.7 fL (80.0-100.0); MEAN PLATELET VOLUME 10.6 fL (7.4-10.4); MONOCYTES 8.2 % (2-11); NEUTROPHILS 74.5 % (40-80); PLATELET COUNT 308 10x3/uL (130-400); RDW 16.4 % (11.5-14.5); WBC 9.2 10x3/uL (4.8-10.8)
[2016-10-01 06:12] LABS: HEMOGLOBIN 9.5 g/dL (12-16); RBC 3.46 10x6/uL (4.00-5.40)
[2016-10-01 06:21] LABS: ANION GAP 18.1 mmol/L (8-16); CALCIUM 7.7 mg/dL (8.5-10.1); CARBON DIOXIDE 20.1 mmol/L (21.0-32.0); CREATININE - SERUM 4.5 mg/dL (0.6-1.3)
--- NOTE | 2016-10-01 06:21 | NUR ---
ADMINISTERED SYNTHROID PO PER ORDERS AT THIS TIME. PT FSBS 119 AT THIS TIME. DENIES NEEDS. BED LOW. PHONE AND CALL LIGHT IN REACH. SRX2.
[2016-10-01 06:22] LABS: POTASSIUM - SERUM 4.2 mmol/L (3.5-5.1)
[2016-10-01 08:24] VITALS: BP 179/71
[2016-10-01 10:20] LABS: HEPATITIS C ANTIBODY <0.1 (0.0-0.9)
[2016-10-01 14:42] VITALS: Ht 157.5 cm; Wt 66.1 kg
[2016-10-01 16:00] VITALS: BP 175/75
--- NOTE | 2016-10-01 16:04 | NUR ---
THIS AM PATIENT WENT TO DIALYSIS. NOW AT THIS TIME,PER DR NAIK'S ORDER PD CATH IS FLUSHED AND SMALL AMT OF FIBRIN EXTRACTED. 250 CC OF PD 1.5 % INFUSHED WITH 2000 OF HEPARIN. 500CC DRAINED OUT. PD CAPS CHANGED.
--- NOTE | 2016-10-01 20:10 | NUR ---
PT SIT UP IN BED AND WATCH TV.
[2016-10-01 20:19] VITALS: BP 182/74
--- NOTE | 2016-10-01 23:22 | NUR ---
PT REST QUIETLY IN BED, EYE CLOSE, BED LOW, CALL LIGHT WITHIN REACH.
[2016-10-02 00:41] VITALS: BP 197/80
--- NOTE | 2016-10-02 01:42 | NUR ---
ASSISTED PT SPONGE BATH.
[2016-10-02 04:23] VITALS: BP 199/79
[2016-10-02 05:52] LABS: BASOPHILS 0.5 % (0-2); EOSINOPHILS 2.7 % (0-7); HEMATOCRIT 28.3 % (36.0-48.0); HEMOGLOBIN 8.8 g/dL (12-16); IMMATURE GRANULOCYTES 0.7 % (0-5); LYMPHOCYTES 11.9 % (15-50); MCH 27.3 pg (26.0-34.0); MCHC 31.1 g/dL (31.0-37.0); MCV 87.9 fL (80.0-100.0); MEAN PLATELET VOLUME 10.5 fL (7.4-10.4); MONOCYTES 11.4 % (2-11); NEUTROPHILS 72.8 % (40-80); PLATELET COUNT 274 10x3/uL (130-400); RBC 3.22 10x6/uL (4.00-5.40); RDW 16.5 % (11.5-14.5); WBC 8.5 10x3/uL (4.8-10.8)
[2016-10-02 06:29] LABS: ANION GAP 16.3 mmol/L (8-16); CALCIUM 7.6 mg/dL (8.5-10.1); CREATININE - SERUM 3.4 mg/dL (0.6-1.3); POTASSIUM - SERUM 4.3 mmol/L (3.5-5.1)
[2016-10-02 08:00] VITALS: BP 180/62
--- NOTE | 2016-10-02 12:16 | NUR ---
PT RESTING IN DIALYSIS RECIEVING TX. DENIES ANY CURRENT NEEDS.
[2016-10-02 15:52] VITALS: BP 165/59
[2016-10-02 19:00] VITALS: BP 172/68
--- NOTE | 2016-10-02 21:11 | NUR ---
PT RECEIVED LYING IN BED AAOX3 AT THIS TIME. FSBS 215. 8 UNITS HUMALOG GIVEN TO THE RT ARM. ASSESSMENT COMPLETED PER FLOW SHEET AT THIS TIME. PT REQUESTS ICE WATER. DENIES OTHER NEEDS. BED LOW. PHONE AND CALL LIGHT IN REACH. SRX2.
--- NOTE | 2016-10-03 01:25 | NUR ---
PT RESTING QUIETLY AT THIS TIME ON RIGHT SIDE WITH EYES CLOSED. RESPIRATIONS EVEN, NON-LABORED. NO ACUTE DISTRESS NOTED AT THIS TIME. BED LOW. PHONE AND CALL LIGHT IN REACH. SRX2.
--- NOTE | 2016-10-03 02:32 | NUR ---
PT RESTING QUIETLY AT THIS TIME WITH EYES CLOSED. RESPIRATIONS EVEN, NON-LABORED. NO ACUTE DISTRESS NOTED. BED LOW. PHONE AND CALL LIGHT IN REACH. SRX2.
[2016-10-03 04:00] VITALS: BP 198/75
--- NOTE | 2016-10-03 05:21 | NUR ---
PT FSBS 99 AT THIS TIME.
--- NOTE | 2016-10-03 05:30 | NUR ---
SYNTHROID PO GIVEN AT THIS TIME. PT DENIES NEEDS. BED LOW. PHONE AND CALL LIGHT IN REACH. SRX2.
[2016-10-03 05:44] LABS: BASOPHILS 0.2 % (0-2); EOSINOPHILS 2.4 % (0-7); HEMOGLOBIN 9.2 g/dL (12-16); IMMATURE GRANULOCYTES 0.7 % (0-5); LYMPHOCYTES 11.6 % (15-50); MCH 27.2 pg (26.0-34.0); MCHC 30.7 g/dL (31.0-37.0); MCV 88.8 fL (80.0-100.0); MEAN PLATELET VOLUME 10.8 fL (7.4-10.4); MONOCYTES 12.2 % (2-11); NEUTROPHILS 72.9 % (40-80); PLATELET COUNT 243 10x3/uL (130-400); RBC 3.38 10x6/uL (4.00-5.40); RDW 16.1 % (11.5-14.5); WBC 9.1 10x3/uL (4.8-10.8)
[2016-10-03 06:12] LABS: ANION GAP 11.5 mmol/L (8-16); CALCIUM 7.7 mg/dL (8.5-10.1); CARBON DIOXIDE 29.1 mmol/L (21.0-32.0); CREATININE - SERUM 2.4 mg/dL (0.6-1.3); POTASSIUM - SERUM 3.6 mmol/L (3.5-5.1)
--- NOTE | 2016-10-03 07:34 | NUR ---
RECEIVED CALL FROM TO DISCHARGE PT.
[2016-10-03 08:17] VITALS: BP 206/83
[2016-10-03] MEDS ORDERED: NIFEDIPINE ER60 MG PO (09:29)
[2016-10-03] MEDS ORDERED: ASPIRIN325 MG PO (09:29)
[2016-10-03] MEDS ORDERED: PROTONIX I40 MG/VIAL IV (09:29)
[2016-10-03] MEDS ORDERED: ULTRACET TABLET1 TAB PO (09:29)
[2016-10-03] MEDS ORDERED: PROTONIX40 MG PO (10:01)
--- NOTE | 2016-10-03 11:35 | NUR ---
Patient Name: CAM FANG Admission Status: ER Accout number: [id number] Admission Date: 09-30-2016 : 1945 Admission Diagnosis:SHORTNESS OF BREATH Attending: JOSE Current LOS: 3 Anticipated DC Date: 10-03-2016 Planned Disposition: Home Primary Insurance: MEDICARE A & B Discharge Planning Comments: * Is the patient Alert and Oriented? Yes 0 * How many steps to enter\exit or inside your home? 2 0 * PCP DR. KLEIN 0 * Pharmacy [facility] ON [address] 0 * Preadmission Environment Home with Family 0 * ADLs Independent 0 * Equipment None / PREFERRED PROVIDER: [facility] IN IN CAR * Other Equipment [facility] - DELIVERING HOME PD EQUIPMENT AND SUPPLIES 0 * List name and contact numbers for known caregivers / representatives who currently or will assist patient after discharge: ANTHONY SMITH, SON, GARCIA TORRES, FRIEND, WILFREDO FINLEY, FRIEND, 0 * Community resources currently utilized Other 0 * Please name any agencies selected above. OUTPATIENT DIALYSIS, TRANSITION TO PD AT HOME [facility], MWF, 1100 PT HAS BEEN DRIVING SELF, WILL REESTABLISH WITH [facility] TRANSPORT. 0 * Additional services required to return to the preadmission environment? No 0 * Can the patient safely return to the preadmission environment? Yes 0 * Has this patient been hospitalized within the prior 30 days at any hospital? No 0 CM MET WITH PT IN ROOM TO DISCUSS DISCHARGE PLANNING AND NEEDS. PT REPORTS LIVING AT HOME INDEPENDENTLY AND ALONE; PT'S ADULT SON HAS MOVED IN AND WILL BE ASSISTING PT AT HOME. . PT HAS NO MEDICAL EQUIPMENT AND NO OUTSIDE SERVICES ASSISTING IN THE HOME. CM DISCUSSED AVAILABILITY OF HOME HEALTH, REHAB SERVICES AND MEDICAL EQUIPMENT. PT DENIES DISCHARGE NEEDS, REPORTS HER SON WILL PICK HER UP FOR DISCHARGE HOME TODAY. PT HAS BEEN DOING OUTPATIENT HEMODIALYSIS AT [facility] BUT WILL BE GOING TO [facility], M//F, 1100, FOR TRAINING AND TRANSITION TO HOME PD. IMPORTANT MESSAGE FROM MEDICARE PROVIDED AND EXPLAINED. Steam Hand: Hernandez Mejia
[2016-10-03 12:00] VITALS: BP 191/75
--- NOTE | 2016-10-03 12:45 | NUR ---
DISCHARGE INSTRUCTIONS REVIEWED WITH PATIENT AND SON. VERBAL AND WRITTEN ACKNOWLEDGEMENT RETURNED
--- NOTE | 2016-10-03 12:50 | NUR ---
IV DC'D WITH TIP INTACT. COVERED WITH 2X2 GAUZE AND TAPE. TOLERATED WELL.
--- NOTE | 2016-10-03 12:55 | NUR ---
LEFT VIA WHEELCHAIR WITH MARKETING BUDGET ANALYST AND SON TO TRANSPORT VIA PRIVATE VEHICLE.
== END 2016-10-03 12:55 | disposition home or self-care (01) | DRG 308 ==
LOC: D.ER 01:16 → D.M2 02:38
PROVIDERS: Emergency Medicine; Internal Medicine; Internal Medicine Nephrology; ADMIT Internal Medicine Nephrology
PROC: 5A1D60Z (ICD-10-PCS; principal; 2016-09-30)
DX: R00.1 Bradycardia, unspecified (principal); N18.6 End stage renal disease; I12.0 Hypertensive chronic kidney disease with stage 5 chronic kidney disease or end stage renal disease; E11.22 Type 2 diabetes mellitus with diabetic chronic kidney disease; Z99.2 Dependence on renal dialysis; I25.10 Atherosclerotic heart disease of native coronary artery without angina pectoris; Z95.1 Presence of aortocoronary bypass graft; E78.5 Hyperlipidemia, unspecified; D63.1 Anemia in chronic kidney disease

== ENCOUNTER 2016-10-11 05:23 | Day surgery (SDC) | payer MEDICARE ==
[2016-10-10 16:28] LABS: BASOPHILS 0.3 % (0-2); EOSINOPHILS 3.2 % (0-7); HEMATOCRIT 36.6 % (36.0-48.0); HEMOGLOBIN 11.3 g/dL (12-16); IMMATURE GRANULOCYTES 0.7 % (0-5); LYMPHOCYTES 10.6 % (15-50); MCH 27.5 pg (26.0-34.0); MCHC 30.9 g/dL (31.0-37.0); MCV 89.1 fL (80.0-100.0); MEAN PLATELET VOLUME 10.4 fL (7.4-10.4); MONOCYTES 6.5 % (2-11); NEUTROPHILS 78.7 % (40-80); RBC 4.11 10x6/uL (4.00-5.40); RDW 16.5 % (11.5-14.5); WBC 11.7 10x3/uL (4.8-10.8)
[2016-10-10 16:33] LABS: PLATELET COUNT 387 10x3/uL (130-400)
[2016-10-10 16:43] LABS: INR 1.35 (0.85-1.17); PROTIME 16.6 SECONDS (11.6-15.0)
[2016-10-10 16:45] LABS: CALCIUM 8.5 mg/dL (8.5-10.1); CARBON DIOXIDE 28.4 mmol/L (21.0-32.0); CREATININE - SERUM 2.1 mg/dL (0.6-1.3); POTASSIUM - SERUM 3.4 mmol/L (3.5-5.1)
[2016-10-10 17:05] LABS: APTT > 200.0 SECONDS (22.8-39.4)
[~2016-10-11] VITALS: Ht 157.5 cm; Wt 59.0 kg
[~2016-10-11 05:23] MED LIST changes: +ASPIRIN325 MG PO; +PROTONIX I40 MG/VIAL IV; +PROTONIX40 MG PO; +ULTRACET TABLET1 TAB PO
[2016-10-11 07:24] VITALS: Ht 157.5 cm; Wt 59.0 kg
[2016-10-11] MEDS ORDERED: ULTRAM50 MG PO (10:46)
--- NOTE | 2016-10-11 12:17 | NUR ---
1200--PT VOIDS, IV DC'D. COTY PARRISH 1215--PT'S RIDE IS HERE. DISCHARGE INSTRUCTIONS GIVEN, PT VERBALIZES UNDERSTANDING. PT OFF UNIT VIA WC. COTY PARRISH
--- NOTE | 2016-10-12 10:42 | OP ---
PATIENT NAME: CAM PETERSON MEDICAL RECORD: [id number] :45 LOCATION:DYG ADMISSION DATE: SURGEON: PHUC BOCANEGRA MD DATE OF OPERATION: 10/11/2016 REFERRED BY: Nurys Ross MD PREOPERATIVE DIAGNOSIS: End-stage renal disease with dependence on right femoral tunneled dialysis catheter for hemodialysis access and mechanical malfunction of recently implanted peritoneal dialysis catheter. POSTOPERATIVE DIAGNOSIS: End-stage renal disease with dependence on right femoral tunneled dialysis catheter for hemodialysis access and mechanical malfunction of recently implanted peritoneal dialysis catheter. OPERATION PERFORMED: Laparoscopic insertion of a new peritoneal dialysis catheter from a more superior insertion site on the right side of the abdomen and removal of the old right-sided catheter. SURGEON: Phuc Bocanegra MD ANESTHESIA: General endotracheal per PARTY PLAN DEALER. PREOPERATIVE NOTE: Ms. Peterson is a very nice 71-year-old white female patient who has had numerous problems with dialysis access since joining the dialysis population a couple of months ago. She has had a coronary artery disease with recent placement of cardiac stent. She has had failed catheter implantations and failed fistula creation attempts. I recently implanted a peritoneal dialysis catheter laparoscopically and it does not work. It is possible that the catheter was inserted too low in the abdomen and redundancy is forcing the catheter too far down in the pelvis and that can be a problem. At any rate, she has returned to the OR today with plans for general anesthesia and repeat laparoscopy and insertion of a new catheter through a different more cephalad insertion site. Under general endotracheal anesthesia in supine position, the patient was prepped and draped in sterile manner. Two attempts were made to access the peritoneal cavity with Optiview XL type port in the left upper quadrant and at the level of the umbilicus on the left and these insertions failed with a persistent preperitoneal placement of the trocars. I therefore went on to make a short midline abdominal incision just above the umbilicus and inserted a Nery port with standard open technique and established pneumoperitoneum with carbon dioxide. A 5-mm 0-degree scope was utilized throughout the procedure. I noted that the patient's peritoneal dialysis catheter was in the pelvis pretty much where I had left it. I did find that it was sucked up amongst and entangled in several loops of small bowel, which were blocking the catheter. There is no omentum at all in the lower part of the abdomen and it was certainly not involved in this case. Through an incision on the right side of the abdomen, I exposed the catheter and the anterior rectus sheath. The external Dacron felt cuff was exposed with just traction, the catheter was divided there and then from within the incision, the catheter in the deeper Dacron felt cuff were mobilized, but I did not remove the catheter at that point. I made another incision, about a hand's breadth, higher on the right side of the abdomen, exposing anterior rectus sheath and through that, inserted a needle and guidewire into the peritoneal cavity. A peel-away introducer dilator was passed OPERATIVE REPORT [id number] CAM PETERSON over the wire and a new swan neck dual cuff coil PD catheter inserted. This was a right-sided catheter and it was left in the pelvis, so did not distend as far into the pelvis as the previous one. I did not suture it to the pelvic peritoneum. It flushed easily and aspirated well. The catheter was placed in a laterally directed subcutaneous tunnel and a new exit site and it was then flushed again with heparin lock solution, clamped and capped. The catheter exit site was sealed with glue and the catheter stabilized with 2/4 inch Steri-Strips. A Biopatch was then applied and over that, further sterile dry dressings. The previous catheter was removed and that abdominal wall opening closed with [id number] 0 Vicryl sutures. The Nery port and the other two 5 ports were then removed and the midline fascia approximated with interrupted [id number] 0 Vicryl. The wounds were irrigated with Ancef and gentamicin solution infiltrated with 0.25% Marcaine with epinephrine and closed with interrupted inverted 3-0 Vicryl and running intracuticular 4-0 Monocryl. The wounds were sealed with Dermabond glue and dressed with Maxorb Ag, Tegaderm, and Cavilon skin prep. The patient was then awakened and extubated and taken to the recovery room in stable condition. PLAN: If stable and comfortable, she will be able to go home today and will follow up with me in my office next week. Also, she is to have a catheter flushed by peritoneal dialysis nurses at [facility] next week. I estimate that it will be probably a month before her incisions are healed well enough that she can begin standard volume exchanges on peritoneal dialysis, though she may begin small volume exchanges very soon. Blood loss during the procedure was trivial and unreplaced. All sponges, instruments and needles were accounted for. No drain was used and no surgical specimen was obtained for histopathology. I did send the tip of the old PD catheter for culture and sensitivity. TRANSINT:[id number] Voice Confirmation ID: [id number] DOCUMENT ID: [id number] PHUC BOCANEGRA MD at 1042 CC: NURYS ROSS MD [id number] DICTATION DATE: 10/11/16 1036 HAND EDGER: 10/11/162041 [facility] 10/11/16 [facility] [address] [place] [address]
== END 2016-10-11 12:15 | disposition home or self-care (01) ==
LOC: D.OPS 05:23 → D.PAN 08:00 → D.OPS 08:00
PROVIDERS: Surgery
DX: T85.611A Breakdown (mechanical) of intraperitoneal dialysis catheter, initial encounter (principal); T85.868A Thrombosis due to other internal prosthetic devices, implants and grafts, initial encounter; N18.6 End stage renal disease; Z99.2 Dependence on renal dialysis; I25.10 Atherosclerotic heart disease of native coronary artery without angina pectoris; Z95.5 Presence of coronary angioplasty implant and graft

== ENCOUNTER 2016-11-05 09:57 | Inpatient (IN) | payer MEDICARE ==
[~2016-11-05] VITALS: Ht 157.5 cm; Wt 57.6 kg
[~2016-11-05 09:57] MED LIST changes: +ULTRAM50 MG PO
[2016-11-05 11:14] LABS: BASOPHILS 0.2 % (0-2); EOSINOPHILS 0.7 % (0-7); IMMATURE GRANULOCYTES 0.5 % (0-5); LYMPHOCYTES 9.9 % (15-50); MCH 27.5 pg (26.0-34.0); MCHC 30.3 g/dL (31.0-37.0); MCV 90.9 fL (80.0-100.0); MEAN PLATELET VOLUME 11.2 fL (7.4-10.4); MONOCYTES 9.8 % (2-11); NEUTROPHILS 78.9 % (40-80); RBC 3.63 10x6/uL (4.00-5.40); RDW 18.8 % (11.5-14.5); WBC 9.8 10x3/uL (4.8-10.8)
[2016-11-05 11:33] LABS: ALBUMIN 2.9 g/dL (3.4-5.0); BILIRUBIN - TOTAL 0.65 mg/dL (0.2-1.3); CALCIUM 8.6 mg/dL (8.5-10.1); CARBON DIOXIDE 21.4 mmol/L (21.0-32.0); CREATININE - SERUM 3.4 mg/dL (0.6-1.3)
[2016-11-05 11:35] LABS: PLATELET COUNT 250 10x3/uL (130-400)
[2016-11-05 11:43] LABS: ANION GAP 14.6 mmol/L (8-16)
--- NOTE | 2016-11-05 16:00 | NUR ---
PT RECIEVED TO ROOM VIA WHEELCHAIR, [facility] NURSE CALLED THAT PT NEEDED TO BE TAKEN DOWN TO DIALYSIS [facility]. UNABLE TO DO ASSESSMENT AND ASK PT ABOUT MEDS. PT ALERT AND ORIENTED X4, GENERALIZED WEAKNESS. PT TRANSFERED TO [facility], VIA BED, NAD NOTED.
--- NOTE | 2016-11-05 18:48 | NUR ---
PT TRANSFERED BACK TO ROOM 2137, VIA BED, NAD NOTED.
[2016-11-05 19:00] VITALS: BP 196/72
--- NOTE | 2016-11-05 19:50 | NUR ---
PT IS RESTING IN BED WITH EYES OPEN. ALERT AND ORIENTED X 3. PT REQUESTED ASSIST TO THE BATHROOM. SHE THEN WALKED INDEPENDENTLY. NO COMPLAINT OF PAIN OR DISCOMFORT VOICED. RFA SALINE LOCK NOTED. LEFT ARM FISTULA NOTED WITH GOOD BRUITT AND THRILL. 02 IS ON @ 3LPM PER NC. SR'S ARE UP X 2 IN BED. CALL LIGHT AND BEDSIDE TABLE ARE WITHIN EASY REACH.
--- NOTE | 2016-11-05 22:25 | NUR ---
PT IS RESTING QUIETLY IN BED WITH EYES CLOSED. RESPS ARE EVEN AND UNLABORED.. NO ACUTE DISTRESS NOTED.
[2016-11-06] VITALS: BP 141/70
--- NOTE | 2016-11-06 01:48 | NUR ---
PT IS RESTING QUIETLY IN BED WITH EYES CLOSED. RESPS ARE EVEN AND UNLABORED. NO ACUTE DISTRESS NOTED.
[2016-11-06 02:51] VITALS: BP 196/72; BMI 23.8
[2016-11-06 04:00] VITALS: BP 193/65
--- NOTE | 2016-11-06 06:31 | NUR ---
PT IS RESTING QUIETLY IN BED WITH EYES CLOSED. NO DISTRESS NOTED.
--- NOTE | 2016-11-06 07:27 | NUR ---
AM ROUNDS- PT IN BED WITH EYES CLOSED. BED LOW AND LOCKED, BEDSIDE RAILS X2, CALL LIGHT IN REACH, NAD NOTED, WILL CONTINUE TO MONITOR.
[2016-11-06 08:00] VITALS: BP 205/81
[2016-11-06] MEDS ORDERED: HYDROCODON-ACE1 EAC7 PO (09:56)
[2016-11-06] MEDS ORDERED: ULTRACET TABLET1 TAB PO (09:57)
[2016-11-06] MEDS ORDERED: NIFEDIPINE ER60 MG PO (09:58)
[2016-11-06] MEDS ORDERED: ISOSORBIDE MONO60 M1 PO (09:59)
[2016-11-06] MEDS ORDERED: LASIX80 MG PO (09:59)
[2016-11-06] MEDS ORDERED: COREG6.25 MG PO (10:00)
[2016-11-06] MEDS ORDERED: EFFIENT10 MG PO (10:00)
[2016-11-06 12:00] VITALS: BP 169/92
--- NOTE | 2016-11-06 12:25 | NUR ---
Patient Name: CAM FANG Admission Status: ER Accout number: [id number] Admission Date: 11-05-2016 : 1945 Admission Diagnosis: Attending: HAILY Current LOS: 1 Anticipated DC Date: Planned Disposition: Home Primary Insurance: MEDICARE A & B Discharge Planning Comments: * Is the patient Alert and Oriented? Yes 0 * How many steps to enter\exit or inside your home? 2 0 * PCP DR. KLEIN 0 * Pharmacy [facility] [address] 0 * Preadmission Environment Home with Family 0 * ADLs Independent 0 * Equipment None 0 * Other Equipment [facility] - PREFERRED MEDICAL EQUIPMENT PROVIDER 0 * List name and contact numbers for known caregivers / representatives who currently or will assist patient after discharge: ANTHONY SMITH, SON, 0 * Community resources currently utilized Other 0 * Please name any agencies selected above. OUTPATIENT DIALYSIS, [facility], T/T/SA, 1000; SON TRANSPORTS TO AND FROM DIALYSIS 0 * Additional services required to return to the preadmission environment? No 0 * Can the patient safely return to the preadmission environment? Yes 0 * Has this patient been hospitalized within the prior 30 days at any hospital? Yes 0 CM MET WITH PT IN ROOM TO DISCUSS DISCHARGE PLANNING AND NEEDS. PT REPORTS LIVING AT HOME INDEPENDENTLY AND HAS HER SON THERE NOW TO ASSIST IF NEEDED. PT HAS NO MEDICAL EQUIPMENT AND NO OUTSIDE SERVICES ASSISTING IN THE HOME. CM DISCUSSED AVAILABILITY OF HOME HEALTH, REHAB SERVICES AND MEDICAL EQUIPMENT. PT DENIES DISCHARGE NEEDS AT THIS TIME, PLANS TO GO HOME AT DISCHARGE, REPORTS HER SON WILL PICK HER UP FOR DISCHARGE HOME. PT REPORTS SHE DOES NOT THINK SHE WILL BE ABLE TO DO PD AT HOME AND THEY HAVE CHANGED HER OUTPATIENT DIALYSIS TO T/T/S AT 1000, HER SON IS DRIVING HER TO AND FROM DIALYSIS. PT PLANS TO RETURN HOME AT DISCHARGE WITH ASSISTANCE OF ADULT SON, DENIES DISCHARGE NEEDS AT THIS TIME. CM TO FOLLOW AND ASSIST NEEDED. Ceramic Coater: Hernandez Mejia
--- NOTE | 2016-11-06 12:37 | NUR ---
PT UP SIDE OF BED, EATING LUNCH, PT DENIES ANY NEEDS AT THIS TIME. CALL LIGHT IN REACH, NAD NOTED, WILL CONTINUE TO MONITOR.
--- NOTE | 2016-11-06 13:20 | NUR ---
PT TRANSFERED TO DIALYSIS VIA BED, NAD NOTED.
[2016-11-06 13:45] VITALS: Ht 157.5 cm; Wt 57.6 kg
--- NOTE | 2016-11-06 17:25 | NUR ---
PT TRANSFERED BACK TO ROOM 2137 VIA BED, NAD NOTED.
[2016-11-06 19:00] VITALS: BP 181/69
[2016-11-06 19:08] LABS: APPEARANCE CLEAR (CLEAR); COLOR YELLOW (YELLOW); LEUKOCYTE ESTERASE NEGATIVE (NEGATIVE); NITRITE NEGATIVE (NEGATIVE)
[2016-11-06 19:09] LABS: BILIRUBIN NEGATIVE (NEGATIVE); GLUCOSE 50 mg/dL (NEGATIVE); KETONE NEGATIVE (NEGATIVE); PROTEIN 1+ mg/dL (NEGATIVE); UROBILINOGEN NORMAL (NORMAL)
--- NOTE | 2016-11-06 19:30 | NUR ---
PT IN BED WITH HOB UP FOR COMFORT. WATCHING TV. 02 @ 3L VIA N/C. ALERT & ORIENTED. LEFT ARM RESERVE. RT FA SALINE LOC. RT GROIN HEMOSPLIT. LT AV FISTULA. BED IN LOWEST POSITION AND CALL LIGHT WITHIN REACH.
--- NOTE | 2016-11-06 20:28 | NUR ---
DIVIDING MACHINE OPERATOR HELPER AT BEDSIDE TO OBTAIN VITALS, CALL LIGHT IN REACH. WILL CONTINUE WITH PLAN OF CARE.
[2016-11-07] VITALS: BP 174/84
--- NOTE | 2016-11-07 03:37 | NUR ---
PT IN BED WITH HOB UP FOR COMOFRT. EYES CLOSED. CHEST RISING AND FALLING. BED IN LOWEST POSITION AND CALL LIGHT WITHIN REACH.
[2016-11-07 04:00] VITALS: BP 165/44
[2016-11-07 06:23] LABS: BASOPHILS 0.2 % (0-2); EOSINOPHILS 7.9 % (0-7); HEMATOCRIT 31.2 % (36.0-48.0); HEMOGLOBIN 9.4 g/dL (12-16); IMMATURE GRANULOCYTES 0.4 % (0-5); LYMPHOCYTES 15.1 % (15-50); MCH 27.2 pg (26.0-34.0); MCHC 30.1 g/dL (31.0-37.0); MCV 90.4 fL (80.0-100.0); MEAN PLATELET VOLUME 10.7 fL (7.4-10.4); MONOCYTES 12.2 % (2-11); NEUTROPHILS 64.2 % (40-80); PLATELET COUNT 236 10x3/uL (130-400); RBC 3.45 10x6/uL (4.00-5.40); RDW 18.5 % (11.5-14.5); WBC 8.1 10x3/uL (4.8-10.8)
[2016-11-07 06:34] LABS: CALCIUM 8.2 mg/dL (8.5-10.1); CREATININE - SERUM 2.7 mg/dL (0.6-1.3)
[2016-11-07 06:36] LABS: ANION GAP 12.6 mmol/L (8-16); CARBON DIOXIDE 28.9 mmol/L (21.0-32.0); POTASSIUM - SERUM 4.5 mmol/L (3.5-5.1)
--- NOTE | 2016-11-07 07:56 | NUR ---
AM ROUNDING- RECEIVED REPORT FROM CELLOPHANER NURSE BARBARA. PT IS CURRENTLY SITTING UP IN BED WITH EYES OPEN RESTING. PT IS CURRENTLY ASKING WITH "DOCTORS WILL RELEASE HER". I INFORMED PT THAT I WAS NOT SURE OF THAT AND DOCTOR WILL HAVE TO MAKE ROUNDS TO SEE HER TODAY. ON 02 AT 3L VIA NC. NO MONITOR. IV SEEN TO RIGHT FOREARM THAT IS CURRENTLY SALINE LOCKED. RESERVE LEFT ARM FOR AVF. NO NEED AT CURRENT TIME. WILL CONTINUE TO MONITOR AND CONTINUE [facility] PLAN OF CARE.
[2016-11-07 08:29] VITALS: BP 173/65
--- NOTE | 2016-11-07 11:28 | NUR ---
EDWARDO FRIEND NP ON UNIT. INFORMED HER THAT PTS HOME MEDICATIONS HAVE NOT YET BEEN RESTARTED. EDWARDO FRIEND NP STATES SHE WILL RESTART HOME MEDICATIONS. WILL CONTINUE TO MONITOR.
[2016-11-07 11:57] VITALS: BP 198/86
[2016-11-07 15:12] VITALS: BP 166/64
--- NOTE | 2016-11-07 17:55 | NUR ---
PT IS IN DIALYSIS. AWAITING REPORT FROM DIALYSIS NURSE.
[2016-11-07 19:00] VITALS: BP 129/58
--- NOTE | 2016-11-07 23:40 | NUR ---
GRAIN ELEVATOR SUPERINTENDENT AT BEDSIDE TO OBTAIN VITALS, CALL LIGHT IN REACH. WILL CONTINUE WITH PLAN OF CARE.
[2016-11-08] VITALS: BP 127/53
--- NOTE | 2016-11-08 02:26 | NUR ---
ASSESSMENT COMPLETE, SEE FLOWSHEET, PT SLEEPING, BED IS LOW, SRX2, CALL LIGHT IN REACH, WILL CONTINUE PLAN OF CARE
[2016-11-08 04:00] VITALS: BP 126/48
[2016-11-08 05:17] LABS: BASOPHILS 0.4 % (0-2); HEMATOCRIT 29.6 % (36.0-48.0); IMMATURE GRANULOCYTES 0.4 % (0-5); LYMPHOCYTES 18.4 % (15-50); MCH 27.2 pg (26.0-34.0); MCHC 30.4 g/dL (31.0-37.0); MCV 89.4 fL (80.0-100.0); MEAN PLATELET VOLUME 11.5 fL (7.4-10.4); MONOCYTES 12.6 % (2-11); NEUTROPHILS 61.2 % (40-80); PLATELET COUNT 220 10x3/uL (130-400); RBC 3.31 10x6/uL (4.00-5.40); RDW 17.9 % (11.5-14.5); WBC 8.4 10x3/uL (4.8-10.8)
[2016-11-08 05:52] LABS: ANION GAP 15.2 mmol/L (8-16); CALCIUM 8.1 mg/dL (8.5-10.1); CARBON DIOXIDE 25.8 mmol/L (21.0-32.0)
[2016-11-08 05:53] LABS: CREATININE - SERUM 3.4 mg/dL (0.6-1.3)
--- NOTE | 2016-11-08 07:53 | NUR ---
AM ROUNDING- RECEIVED REPORT FROM STEAM SHOVELMAN NURSE DONOVAN. PT IS CURRENTLY LAYING IN BED ON BACK WITH EYES OPEN RESTING STATING SHE IS SUPPOSE TO GO HOME THIS MORNING. ON ROOM AIR. NO MONITOR. IV SEEN TO RIGHT FOREARM THAT IS CURRENTLY SALINE LOCKED. RESERVE LEFT ARM FOR AVF. RIGHT GROIN HEMOSPLIT SEEN. NO NEED AT CURRENT TIME. WILL CONTINUE TO MONITOR AND CONTINUE WITH PLAN OF CARE.
[2016-11-08 08:44] VITALS: BP 127/67
[2016-11-08 12:00] VITALS: BP 158/61
--- NOTE | 2016-11-08 14:32 | NUR ---
CALLED DR. AHUJA REGARDING NEW ORDERS. INFORMED DR. AHUJA THAT PT IS TO D/C HOME TODAY AND THAT NEW ORDERES HAD BEEN PUT IN FOR PT. DR. AHUJA STATES HE DID NOT PUT ORDERS IN LESVIA, PRINCIPAL EMBEDDED SOFTWARE ENGINEER MIGHT HAVE AND HE WILL HAVE HER CALL ME. WILL AWAIT CALLBACK.
--- NOTE | 2016-11-08 14:36 | NUR ---
RECEIVED CALLBACK FROM JOE LAKHANI IN RENAL. JOE LAKHANI STATES SHE DID NOT PUT ORDERS IN. I INFORMED HER THAT IT STATES [facility] PUT ORDERS IN. JOE LAKHANI STATES THAT IS PHARMACY AND TO CALL THEM TO SEE. CALLED [facility] IN PHARMACY. HUSAM STATES HE WILL TAKE THEM OUT.
--- NOTE | 2016-11-08 15:31 | NUR ---
D/C INSTRUCTIONS EXPLAINED TO PT. D/C PAPERWORK SIGNED BY PT AND PLACED IN CHART. IV TO RIGHT FOREARM REMOVED WITH CATH TIP INTACT. COVERED SITE WITH 2X2 GAUZE PADS AND SECURED WITH TAPE. TOLERATED WELL. PT D/C VIA WHEELCHAIR ACCOMPANIED BY FAMILY MEMBERS.
== END 2016-11-08 15:36 | disposition home or self-care (01) | DRG 291 ==
LOC: D.ER 09:57 → D.M2 13:40 → OBSVTIME 13:40 → D.M2 14:04
PROVIDERS: Emergency Medicine; ADMIT Internal Medicine Nephrology
PROC: 5A1D60Z (ICD-10-PCS; principal; 2016-11-05)
DX: I13.2 Hypertensive heart and chronic kidney disease with heart failure and with stage 5 chronic kidney disease, or end stage renal disease (principal); N18.6 End stage renal disease; J98.11 Atelectasis; T82.898A Other specified complication of vascular prosthetic devices, implants and grafts, initial encounter; E87.5 Hyperkalemia; E11.22 Type 2 diabetes mellitus with diabetic chronic kidney disease; Z99.2 Dependence on renal dialysis; I25.10 Atherosclerotic heart disease of native coronary artery without angina pectoris; E78.5 Hyperlipidemia, unspecified; D63.1 Anemia in chronic kidney disease; E87.70 Fluid overload, unspecified; R00.1 Bradycardia, unspecified; Y83.8 Other surgical procedures as the cause of abnormal reaction of the patient, or of later complication, without mention of misadventure at the time of the procedure; I50.9 Heart failure, unspecified

== ENCOUNTER 2016-11-11 06:14 | Outpatient (CLI) | payer MEDICARE ==
[~2016-11-11] VITALS: Ht 157.5 cm; Wt 57.3 kg
--- NOTE | ~2016-11-11 | HEMODYNAMI ---
PATIENT:CAM FANG MEDICAL RECORD: [id number] : 45 LOCATION:[facility] ADMISSION DATE: 11/11/16 Generatedon:11/11/20168:52 Patient name: CAM AFNG Patient #: [id number] SSN: [id number] : 1945 Date of study: 11/11/2016 Page: Of Hemodynamic Procedure Report Patient Data Patient Demographics Procedure consent was obtained First Name: CAM Gender: Female Last Name: ANNALISA : 1945 Patient #: [id number] Age: 71 year(s) Race: SSN: [id number] Additional ID: [id number] Contact details [address]: [address] [place] [address] State: [place] City: [place] Zip code: [address] Admission Admission Data Admission Date: 11/11/2016 Admission Time: 6:14 Procedure Procedure Types Cath Procedure Peripheral Cath Diagnostic Procedure Miscellaneous Procedure Description Procedure Date Procedure Date: 11/11/2016 Procedure Start Time: 8:35 Procedure Staff Name Function Gordo David MD Performing Physician Varsha Castillo RT Scrub Varsha Watson RN Nurse Uli Vieira RT Monitor Procedure Data Cath Procedure Fluoroscopy Diagnostic fluoroscopy Total fluoroscopy Time: 2.2 time: 2.2 min min Diagnostic fluoroscopy Total fluoroscopy dose: 36 dose: 36 mGy mGy Contrast Material Contrast Material Type Amount (ml) Isovue 300 28 Procedure Medications Medication Administration Route Dosage 0.9% NaCl I.V. 50 ml Oxygen NC 2 l/min Heparin Flush Bag added to field 1 bags (1000units/500ml NS) Hemodynamics Rest Heart Rate: 74 (bpm) Snapshots Pre Cath Intra NCS Post Cath Vital Signs Time Heart Resp SPO2 NIBP (mmHg) Rhythm Pain Sedation Rate (ipm) (%) Status Level (bpm) 8:16:17 74 19 92 209/87(151) NSR 0 (11) 10(A) , No pain 8:20:48 72 18 94 197/86(149) NSR 0 (11) 10(A) , No pain 8:25:16 72 19 93 197/82(151) NSR 0 (11) 10(A) , No pain 8:29:42 72 23 94 186/95(148) NSR 0 (11) 10(A) , No pain 8:34:05 72 19 95 196/84(152) NSR 0 (11) 10(A) , No pain 8:38:33 71 12 96 188/81(141) NSR 0 (11) 10(A) , No pain 8:42:55 74 15 96 209/87(154) NSR 0 (11) 10(A) , No pain 8:47:27 71 96 194/83(151) NSR 0 (11) 10(A) , No pain Medications Time Medication Route Dose Verified Delivered Reason Notes Effec tiveness by by 8:30:51 0.9% NaCl I.V. 50 ml Varsha Varsha used for Walter Walter building equipment inspector RN 8:31:00 Oxygen NC 2 Varsha Varsha used for l/min Walter Walter building equipment inspector RN 8:31:08 Heparin Flush added 1 Varsha Varsha used for Bag to bags Walter Walter procedure (1000units/500ml field RN RN NS) Procedure Log Time Note 8:06:59 Time tracking: Regular hours 8:07:15 Plan of Care:Hemodynamics will remain stable., Cardiac rhythm will remain stable., Comfort level will be maintained., Respiratory function will remain adequate., Patient/ family verbilizes understanding of procedure., Procedure tolerated without complication., Recovers from procedure without complications.. 8:07:21 Patient received from Outpatients to [facility] 1 Alert and oriented. Tansferred to table in Supine position. 8:07:23 Correct patient and procedure confirmed by team. 8:07:24 Signed procedure consent form obtained from patient. 8:07:27 ECG and BP/O2 sat monitors applied to patient. 8:07:28 Full Disclosure recording started 8:07:29 8:07:30 8:07:33 H&P Date Dictated: 11/11/2016 H&P Addendum completed by physician on day of procedure. (MUST COMPLETE FOR ALL OUTPATIENTS). 8:07:34 Pre-procedure instructions explained to patient. 8:07:35 Pre-op teaching completed and patient verbalized understanding. 8:07:37 Family unavailable. 8:07:40 Patient NPO since Midnight. 8:07:48 Is the patient allergic to Iodine/contrast media? No. 8:07:49 Is patient on blood thinner?Yes 8:07:52 ACC The patient was administered the following blood thiners within the last 24 hours: ACCAspirin 8:07:59 Patient diabetic? Yes. 8:08:00 If diabetic: On Metformin? Yes 8:08:12 If on Metformin: Last Dose? 11/09/2016 8:08:14 ----Pre-sedation anethsthesia assessment.---- 8:08:16 Previous problem with sedation/anesthesia? No ? 8:08:16 Snore? Yes 8:08:18 Sleep apnea? No 8:08:19 Deviated septum? No 8:08:20 Opens mouth fully? Yes 8:08:21 Sticks out tongue? Yes 8:08:24 Airway obstruction? No ? 8:08:27 Dentures? Yes in 8:14:03 Vital chart was started 8:14:04 Baseline sample Acquired. 8:14:08 Rhythm: sinus rhythm 8:14:21 Patient pain scale 0/10 no pain. 8:14:28 IV patent on arrival in right antecubital with 0.9% NaCl at KVO. 8:14:30 Alarms reviewed by RCarmencita Espinal 8:14:31 Sharps counted by scrub and verified by RCarmencitaN. 8:14:36 Right abdomen area was prepped with chlora-prep and draped in sterile fashion 8::41 Use device set IR Diagnostic 8::42 Bag Decanter opened to sterile field. 8:14:43 Sterile Angiographic Pack opened to sterile field. 8:30:51 0.9% NaCl 50 ml I.V. was administered by Varsha Watson RN; used for procedure; 8:31:00 Oxygen 2 l/min NC was administered by Varsha Watson RN; used for procedure; 8:31:08 Heparin Flush Bag (1000units/500ml NS) 1 bags added to field was administered by Varsha Watson RN; used for procedure; 8::31 Physician arrived 8::31 --------ALL STOP TIME OUT------ 8::33 Final Timeout: patient, procedure, and site verified with staff and physician. All members of the team are in agreement. 8:31:37 Right abdomen site verified by team. 8::47 Physical assessment completed. ASA score P 2 - A patient with mild systemic disease as per Gorod David MD. 8:31:51 Sedation plan: IV Moderate Sedation Versed, Fentanyl 8:35:[address] [facility] .035 glide wire opened to sterile field. 8:35:44 Procedure started. 8:44:38 Procedure ended.(Physican Out) 8:46:40 Fluoroscopy time 02.20 minutes. 8:46:46 Fluoroscopy dose: 36 mGy 8:46:46 Flurop Dose total: 36 8:46:51 Contrast amount:Isovue 300 28ml. 8:47:16 Sharps counted by scrub and verified by R.N. 8:47:18 Insertion/operative site no bleeding no hematoma. 8:47:27 Post-op/insertion site Right Abdominal area dressed using a Mepilex dressing. 8:47:30 Post Procedure Pulses reassessed and unchanged 8:47:41 Post-procedure physical assessment completed. ASA score P 2 - A patient with mild systemic disease as per Gordo David MD. 8:47:48 Post procedure instruction explained to patient.Patient verbalizes understanding. 8:47:55 Procedure and supply charges have been captured, reviewed, submitted and are correct. 8:50:47 Vital chart was stopped 8:51:13 Report given to Outpatients. 8:51:18 Patient transfered to Outpatients with Stretcher. Device Usage Item Name Manufacture Quantity Catalog Hospital Part Current Minimal Lot# / Number Charge Number Stock Stock Serial# Code Bag [employer] 1 [id number] [employer] Sterile Cardinal 1 [id number] 5 Angiographic Health Pack [facility] 1 [id number] [facility] 924 .789 glide wire Signature Audit [place] Stage Time Signature Unsigned Intra-Procedure 11/11/2016 Varsha Castillo 8:52:00 AM RT(R) Signatures Monitor : Uli Signature : Dariel RT Date : Time : [address] [address]
[~2016-11-11 06:14] MED LIST changes: +HYDROCODON-ACE1 EAC7 PO; +LASIX80 MG PO
[2016-11-11 06:55] VITALS: Ht 157.5 cm; Wt 57.3 kg
[2016-11-11 07:23] LABS: BASOPHILS 0.2 % (0-2); EOSINOPHILS 4.7 % (0-7); HEMATOCRIT 29.4 % (36.0-48.0); HEMOGLOBIN 8.9 g/dL (12-16); IMMATURE GRANULOCYTES 0.4 % (0-5); LYMPHOCYTES 15.3 % (15-50); MCH 27.2 pg (26.0-34.0); MCHC 30.3 g/dL (31.0-37.0); MCV 89.9 fL (80.0-100.0); MEAN PLATELET VOLUME 10.7 fL (7.4-10.4); MONOCYTES 10.8 % (2-11); NEUTROPHILS 68.6 % (40-80); PLATELET COUNT 264 10x3/uL (130-400); RBC 3.27 10x6/uL (4.00-5.40); RDW 17.2 % (11.5-14.5); WBC 8.2 10x3/uL (4.8-10.8)
[2016-11-11 07:31] LABS: CALCIUM 8.4 mg/dL (8.5-10.1); CARBON DIOXIDE 24.5 mmol/L (21.0-32.0); CREATININE - SERUM 3.1 mg/dL (0.6-1.3); POTASSIUM - SERUM 4.5 mmol/L (3.5-5.1)
[2016-11-11 07:32] LABS: APTT 28.5 SECONDS (22.8-39.4); INR 0.99 (0.85-1.17)
--- NOTE | 2016-11-11 10:11 | NUR ---
0900- PT BACK FROM RADIOLOGY. REPORT TAKEN OVER PHONE FROM FRANCOIS MCCRARY. PT AWAKE/ALERT AND SITTING UP IN BED WITH HOB ELEVATED. VSS. 0930- PT TOLERATED FULL LIQUID DIET. CALLING TO FIND SON FOR A RIDE HOME; READY TO BE DISCHARGED PER DR. VELEZ ORDERS. 1000- SON, ANTHONY, HERE FOR DISCHARGE. DISCHARGE INSTRUCTIONS AND PAPERS COMPLETED AND SIGNED. 1005- PT DISCARGED VIA WHEELCHAIR WITH SON.
== END 2016-11-11 10:05 | disposition home or self-care (01) ==
LOC: D.OPS 06:14 → D.RAD 08:00 → D.OPS 08:00
PROVIDERS: Internal Medicine Nephrology
DX: T85.898A Other specified complication of other internal prosthetic devices, implants and grafts, initial encounter (principal); N18.6 End stage renal disease; Z99.2 Dependence on renal dialysis; Z01.812 Encounter for preprocedural laboratory examination

== ENCOUNTER 2016-11-15 07:40 | Day surgery (SDC) | payer MEDICARE ==
[~2016-11-15] VITALS: Ht 157.5 cm; Wt 57.2 kg
--- NOTE | ~2016-11-15 | OP ---
PATIENT NAME: CAM FANG MEDICAL RECORD: [id number] :[birth year] LOCATION:[facility] ADMISSION DATE: SURGEON: PHUC BOCANEGRA MD OPERATION DATE: 11/15/16 REFERRING PHYSICIAN: Dr. Marie PREOPERATIVE DIAGNOSIS: End-stage renal disease and dependence upon dialysis and mechanical malfunction of peritoneal dialysis catheter. POSTOPERATIVE DIAGNOSIS: End-stage renal disease and dependence upon dialysis and mechanical malfunction of peritoneal dialysis catheter. OPERATION PERFORMED: Open removal of peritoneal dialysis catheter. SURGEON: Phuc Bocanegra MD ANESTHESIA: Local 1% Lidocaine and 0.25% Marcaine both without epinephrine and IV sedation and monitoring per DATA PROCESSING OPERATOR. PREOPERATIVE NOTE: The patient is very sweet 71-year-old white female patient with end-stage renal disease who would like to do peritoneal dialysis, but has had catheter malfunction with two attempts. The present catheter which is nonfunctional is to be removed today and she will continue on hemodialysis indefinitely. PROCEDURE: Under sedation in the supine position, the patient is prepped and draped in a sterile manner. A transverse incision was made in the right upper quadrant overlying the palpable catheter. Electrocautery dissection was primarily used to expose the catheter and separate the two Dacron felt cuffs from the surrounding tissues. The catheter was removed from the abdomen and discarded. There being no signs of infection, peritonitis, purulence, et cetera. The anterior rectus sheath was reapproximated with interrupted [id number] 0 Vicryl. The wound was irrigated with Ancef Gentamicin solution, infiltrated with 0.25% Marcaine and closed with interrupted inverted 3-0 Vicryl in running intracuticular 4-0 Monocryl and Dermabond glue. It was dressed with Maxorb AG, Tegaderm, Cavilon skin prep. She was then awakened and taken back to the recovery room in stable condition. Blood loss was about 10 cc. Nothing significant. None was replaced. All sponges, instruments, and needles were accounted for. No drain was used. No surgical specimen was submitted for histopathology. She will be discharged to home today and return to see me in my office in about two weeks. For the first five to seven days she is just to wash over the waterproof plastic dressing as desired with soap and water and then she is to remove the plastic dressing in approximately one week and thereafter wash the incision site directly with soap and water as desired or daily. She is expected to have some mild postoperative pain and is given a printed prescription for Moffit 5/325 10 tablets, 1 every six hours as needed for pain. She is to use ice off and on as needed as well. OPERATIVE REPORT [id number] CAM FANG JAMES MD CC: NILAY MARIE MD [id number] DICTATION DATE: 11/15/16 1400 GROUTMAN: DM 11/16/16 190 DEP SDC 11/15/16 [facility] [address] [place] [address]
[2016-11-15 08:34] VITALS: Ht 157.5 cm; Wt 57.2 kg
[2016-11-15 08:57] LABS: BASOPHILS 0.5 % (0-2); EOSINOPHILS 3.7 % (0-7); HEMATOCRIT 28.3 % (36.0-48.0); HEMOGLOBIN 8.4 g/dL (12-16); IMMATURE GRANULOCYTES 0.9 % (0-5); LYMPHOCYTES 17.7 % (15-50); MCHC 29.7 g/dL (31.0-37.0); MEAN PLATELET VOLUME 10.6 fL (7.4-10.4); MONOCYTES 10.9 % (2-11); NEUTROPHILS 66.3 % (40-80); PLATELET COUNT 362 10x3/uL (130-400); RBC 3.11 10x6/uL (4.00-5.40); RDW 17.8 % (11.5-14.5)
[2016-11-15 09:06] LABS: CALCIUM 8.1 mg/dL (8.5-10.1); CARBON DIOXIDE 27.3 mmol/L (21.0-32.0); CREATININE - SERUM 2.4 mg/dL (0.6-1.3); POTASSIUM - SERUM 4.3 mmol/L (3.5-5.1)
[2016-11-15 09:11] LABS: APTT 28.2 SECONDS (22.8-39.4); PROTIME 13.1 SECONDS (11.6-15.0)
[2016-11-15] MEDS ORDERED: HYDROCODON-ACE1 EAC7 PO (14:26)
--- NOTE | 2016-11-15 15:54 | NUR ---
IV DC WITH CATHER TIP INTACT
== END 2016-11-15 16:24 | disposition home or self-care (01) ==
LOC: D.OPS 07:40
PROVIDERS: Internal Medicine Nephrology
DX: T85.611A Breakdown (mechanical) of intraperitoneal dialysis catheter, initial encounter (principal); N18.6 End stage renal disease; Z99.2 Dependence on renal dialysis; Z01.812 Encounter for preprocedural laboratory examination

== ENCOUNTER 2016-12-05 03:58 | Emergency (ER) | payer MEDICARE ==
[2016-11-15 08:34] VITALS: BMI 23.1
== END 2016-12-05 05:38 | disposition home or self-care (01) ==
LOC: D.ER 03:58
DX: T82.898A Other specified complication of vascular prosthetic devices, implants and grafts, initial encounter (principal); I12.9 Hypertensive chronic kidney disease with stage 1 through stage 4 chronic kidney disease, or unspecified chronic kidney disease; N18.9 Chronic kidney disease, unspecified

== ENCOUNTER 2017-03-07 21:30 | Inpatient (IN) | payer MEDICARE ==
--- NOTE | ~2017-03-07 | HEMODYNAMI ---
PATIENT:CAM FANG MEDICAL RECORD: [id number] : 45 LOCATION[id number] ADMISSION DATE: 03/07/17 Generatedon:03/10/20179:22 Patient name: CAM FANG Patient #: [id number] SSN: [id number] : 1945 Date of study: 03/10/2017 Page: Of Hemodynamic Procedure Report Patient Data Patient Demographics Procedure consent was obtained First Name: CAM Gender: Female Last Name: ANNALISA : 1945 Middle Initial: M Age: 71 year(s) Patient #: [id number] Race: SSN: [id number] Additional ID: [id number] Contact details [address]: [address] [place] [address] State: [place] City: [place] Zip code: [address] Admission Admission Data Admission Date: 03/07/2017 Admission Time: 23:29 Room #: D.2115 Height (in.): 62 BSA: 1.58 (m2) Height (cm.): 157.48 BMI: 23.23 (kg/m2) Weight (lbs.): 127 Weight (kg.): 57.61 Procedure Procedure Types Cath Procedure Diagnostic Procedure LHC LH w/Coronaries w/Grafts PCI Procedure Coronary Stent Initial Miscellaneous Procedures Moderate Sedation up to 15 minutes Procedure Description Procedure Date Procedure Date: 03/10/2017 Procedure Start Time: 8:50 Procedure End Time: 9:21 Procedure Staff Name Function Jose Angel Cardona MD Performing Physician Lacie Hernandez RT Scrub Conner Timmons RN Nurse Waqar Ryan RT Monitor Yaniv Pride RN Nurse Procedure Data Cath Procedure Fluoroscopy Diagnostic fluoroscopy Total fluoroscopy Time: 4.5 time: 4.5 min min Diagnostic fluoroscopy Total fluoroscopy dose: 606 dose: 606 mGy mGy Contrast Material Contrast Material Type Amount (ml) Isovue 300 112 Entry Location Entry Primary Successful Side Size Upsize Upsize Entry Closure Succes sful Closure Location (Fr) 1 (Fr) 2 (Fr) Remarks Device Remarks Femoral Right 6 Fr Exoseal artery Short Estimated blood loss: 10 ml Diagnostic catheters Device Type Used For End Catheter Placement Cordis 5Fr Pigtail Procedure Catheter (MP) Cordis 5Fr JL 4.0 Procedure Catheter (MP) Cordis 5Fr 3DRC Catheter Procedure (MP) Diagnostic Infinity 5Fr Procedure AR 2 MOD catheter Procedure Complications No complications Procedure Medications Medication Administration Route Dosage Oxygen NC 4 l/min Lidocaine 2% added to field 20 Heparin Flush Bag added to field 2 bags (1000units/500ml NS) 0.9% NaCl I.V. Oxygen 6 l/min Heparin Bolus I.V. 4000 units Integrilin (Bolus I.V. 5.6 ml 2mg/ml) Effient P.O. 60 mg Hemodynamics Rest BSA: 1.58 (m2) O2 Consumption: Estimated: 142.47 (ml/min) O2 Consumption indexed : Estimated:90.17 (ml/min/m) Heart Rate: 65 (bpm) Snapshots Pre Cath Intra NCS Post Cath Vital Signs Time Heart Resp SPO2 etCO2 NIBP (mmHg) Rhythm Pain Sedation Rate (ipm) (%) (mmHg) Status Level (bpm) 8:36:36 65 14 83 32.8 144/67(115) NSR 0 (11) 9(A) , No pain 8:41:23 66 16 87 23.8 150/60(115) NSR 0 (11) 9(A) , No pain 8:46:07 65 17 99 37.2 146/68(119) NSR 0 (11) 9(A) , No pain 8:50:54 60 14 100 23.1 145/63(110) NSR 0 (11) 9(A) , No pain 8:55:39 61 15 99 8.2 142/64(118) NSR 0 (11) 9(A) , No pain 9:01:05 67 16 99 24.6 151/72(144) NSR 0 (11) 9(A) , No pain 9:05:49 67 15 98 18.6 153/61(115) NSR 0 (11) 9(A) , No pain 9:10:36 69 14 94 31.3 148/64(117) NSR 0 (11) 9(A) , No pain 9:15:21 66 14 97 27.6 135/63(113) NSR 0 (11) 9(A) , No pain 9:20:03 64 12 97 31.3 138/68(127) NSR 0 (11) 9(A) , No pain Medications Time Medication Route Dose Verified Delivered Reason Notes Effectiveness by by 8:30:18 Oxygen NC 4 Jose Angel Buffie used for pt is l/min Dulce Pride RN procedure drowsy upon arrival to labor specialist, oxygen placed at 2 liters titrated to 4 l due to low oxygen saturation readings with multiple attempts. 8:39:03 Lidocaine 2% added 20ml Jose Angelkhurram Walter for local to vial Dulce Cardona MD anesthetic field 8:39:28 Heparin Flush added 2 Jose Angel Jose Angel used for Bag to bags Dulce Cardona MD procedure (1000units/500ml field NS) 8:40:01 0.9% NaCl I.V. kvo Jose Angel Walter Per physician ml/hr Dulce Cardona MD 8:43:42 Oxygen simple 6 Jose Angel Buffie used for mask l/min Dulce Pride RN procedure 8:56:30 Heparin Bolus I.V. 4000 Jose Angel Purvis for verifie d units Dulce Pride RN anticoagulation with dr cardona 8:57:42 Integrilin I.V. 5.6 Jose Angel Padillaie for wasted 4.4 (Bolus 2mg/ml) ml Dulce Pride RN antiplatelet ml of vial therapy 9:14:21 Effient P.O. 60 mg Jose Angel Purvis for Dulce Pride RN antiplatelet therapy Procedure Log Time Note 8:00:09 H&P Date Dictated: 03/08/2017 Within 30 days and on chart.. 8:00:44 Conner Timmons RN sent for patient. Start room use. 8:02:45 Time tracking: Regular hours 8:02:49 Plan of Care:Hemodynamics will remain stable., Cardiac rhythm will remain stable., Comfort level will be maintained., Respiratory function will remain adequate., Patient/ family verbilizes understanding of procedure., Procedure tolerated without complication., Recovers from procedure without complications.. 8:22:45 Patient received from PCU to CCL 1 Alert and oriented. Tansferred to table in Supine position. 8:22:46 Warm blankets applied, and geeta hugger turned on for patient comfort. 8:22:47 Correct patient and procedure confirmed by team. 8:22:48 Signed procedure consent form obtained from patient. 8:22:49 ECG and BP/O2 sat monitors applied to patient. 8:30:18 Oxygen 4 l/min NC was administered by Yaniv Pride RN; used for procedure; pt is drowsy upon arrival to labor specialist, oxygen placed at 2 liters titrated to 4 l due to low oxygen saturation readings with multiple attempts. 8:35:42 Vital chart was started 8:35:44 Baseline sample Acquired. 8:39:03 Lidocaine 2% 20ml vial added to field was administered by Jose Angel Cardona MD; for local anesthetic; 8:39:06 Rhythm: sinus rhythm 8:39:07 Full Disclosure recording started 8:39:08 Pre-procedure instructions explained to patient. 8:39:08 Pre-op teaching completed and patient verbalized understanding. 8:39:17 Family in patients room. 8:39:19 Patient NPO since Midnight. 8:39:20 Is the patient allergic to Iodine/contrast media? No. 8:39:23 Is patient on blood thinner?No 8:39:26 Patient diabetic? Yes. 8:39:28 Heparin Flush Bag (1000units/500ml NS) 2 bags added to field was administered by Jose Angel Cardona MD; used for procedure; 8:39:28 If diabetic: On Metformin? No 8:39:31 Previous problem with sedation/anesthesia? No ? 8:39:42 Snore? Yes 8:39:44 Sleep apnea? Yes 8:39:46 Deviated septum? No 8:39:46 Opens mouth fully? Yes 8:39:47 Sticks out tongue? Yes 8:39:50 Airway obstruction? No ? 8:39:52 Dentures? Yes IN 8:40:01 0.9% NaCl kvo ml/hr I.V. was administered by Jose Angel Cardona MD; Per physician; 8:40:40 Pre procedure: right dorsailis pedis pulse 1+ Palpable, but thready & weak; easily obliterated 8:40:43 Patient pain scale 0/10 ?. 8:40:53 IV patent on arrival in left forearm with 0.9% NaCl at KVO. 8:40:59 Lab results completed and on chart. 8:41:03 Right groin area was prepped with chlora-prep and draped in sterile fashion 8:41:06 Alarms reviewed by R. N. 8:41:07 Sharps counted by scrub and verified by R.N. 8:41:10 Physician paged 8:43:42 Oxygen 6 l/min simple mask was administered by Yaniv Pride RN; used for procedure; 8:45:51 Patient Height : 62 inches 8:45:53 Patient Weight : 127 lbs 8:46:25 --------ALL STOP TIME OUT------ 8:46:25 Final Timeout: patient, procedure, and site verified with staff and physician. All members of the team are in agreement. 8:46:28 Right groin site verified by team. 8:46:52 Physical assessment completed. ASA score P 2 - A patient with mild systemic disease as per Jose Angel Cardona MD. 8:46:56 Sedation plan: IV Moderate Sedation Versed, Fentanyl 8:48:56 Terumo 6Fr Vancourt Sheath opened to sterile field. 8:49:59 Use device set Femoral Dx 8:50:00 Tegaderm 4 x 4 opened to sterile field. 8:50:01 Acist Hand Control opened to sterile field. 8:50:02 Acist Manifold opened to sterile field. 8:50:03 Acist Syringe opened to sterile field. 8:50:03 Bag Decanter opened to sterile field. 8:50:03 Medline Cath Pack opened to sterile field. 8:50:04 St Giovanny 260cm J .035 wire opened to sterile field. 8:50:06 Diagnostic Infinity 5Fr Multipack catheter opened to sterile field. 8:50:17 Procedure started. 8:50:21 Local anesthetic to right femoral artery with Lidocaine 2% by Jose Angel Cardona MD.INITIAL ACCESS ONLY 8:50:31 Zero performed for pressure channel P1 8:51:43 A 6 Fr Short sheath was inserted into the Right Femoral artery 8:52:03 A Cordis 5Fr Pigtail Catheter (MP) was advanced over the wire and used for Procedure. 8:52:25 LV angiography performed. 8:52:27 LV gram done using PILLAI 8:52:36 EF : 50 % 8:52:41 Injector settings: Ml/sec: 10, Volume: 20, 8:52:45 Catheter removed. 8:52:50 A Cordis 5Fr JL 4.0 Catheter (MP) was advanced over the wire and used for Procedure. 8:54:21 LCA angiography performed. 8:54:23 Catheter removed. 8:54:43 A Cordis 5Fr 3DRC Catheter (MP) was advanced over the wire and used for Procedure. 8:54:58 HOYT to LAD angiography performed. 8:55:23 Leiva MSA Managementisper J 300cm 0.014 guide wire opened to sterile field. 8:55:23 Webflakes BasixCompak Inflation Kit opened to sterile field. 8:55:37 RCA angiography performed. 8:55:44 Catheter removed. 8:56:22 A Diagnostic Infinity 5Fr AR 2 MOD catheter was advanced over the wire and used for Procedure. 8:56:27 SVG to Circ angiography performed. 8:56:30 Heparin Bolus 4000 units I.V. was administered by Yaniv Pride RN; for anticoagulation; verified with dr cardona 8:57:08 SVG to RCA angiography performed. 8:57:42 Integrilin (Bolus 2mg/ml) 5.6 ml I.V. was administered by Yaniv Pride RN; for antiplatelet therapy; wasted 4.4 ml of vial 8:57:52 Catheter removed. 8:58:09 Cordis 6FR XBLAD 3.5 SH guide catheter opened to sterile field. 8:58:55 6 Fr XBLAD 3.5 SH guide catheter was inserted over the wire 8:59:46 MSA Managementisper wire advanced. 9:00:04 Wire advanced across lesion. 9:00:38 Inflation number: 1 A Euphora 2.0 x 30 Balloon was prepped and advanced across the 1st Diag, then inflated to 13 AMBER for 0:10 (min:sec). 9:00:56 Multiple inflations made at 9 Atms. 9:01:08 Balloon removed over the wire. 9:02:52 Inflation Number: 2 A Nicholas OTW 2.25 x 34 stent was prepped and advanced across the 1st Diag. The stent was deployed at 17 AMBER for 0:10 (min:sec). 9:04:15 Stent catheter was removed intact over wire. 9:04:15 Wire removed. 9:04:16 Guide catheter removed. 9:04:28 Cordis 6Fr Exoseal opened to sterile field. 9:04:48 Sheath removed intact; hemostasis achieved with Exoseal to the Right Femoral artery. 9:04:50 Procedure ended.(Physican Out) 9:05:01 Fluoroscopy time 04.50 minutes. 9:05:05 Fluoroscopy dose: 606 mGy 9:05:05 Flurop Dose total: 606 9:09:14 Contrast amount:Isovue 300 112ml. 9:09:16 Sharps counted by scrub and verified by R.N. 9:09:17 Insertion/operative site no bleeding no hematoma. 9:09:24 Post-op/insertion site Right Femoral artery dressed using a 4 x 4 and Tegaderm. 9:09:26 Post Procedure Pulses reassessed and unchanged 9:09:39 Post-procedure physical assessment completed. ASA score P 2 - A patient with mild systemic disease as per Jose Angel Cardona MD. 9:09:41 Post procedure rhythm: unchanged. 9:09:44 Estimated blood loss: 10 ml 9:09:48 Post procedure instruction explained to patient.Patient verbalizes understanding. 9:09:49 Patient needs reinforcement of post procedure teaching. 9:10:08 Procedure type changed to Cath procedure, Diagnostic procedure, LHC, LHC w/Coronaries w/Grafts, PCI procedure, Coronary Stent Initial, Miscellaneous Procedures, Moderate Sedation up to 15 minutes 9:10:10 Procedure and supply charges have been captured, reviewed, submitted and are correct. 9:10:13 Procedure Complication : No complications 9:14:21 Effient 60 mg P.O. was administered by Yaniv Pride RN; for antiplatelet therapy; 9:21:07 Vital chart was stopped 9:21:08 See physician's report for complete and final results. 9:21:09 Report given to PCU. 9:21:12 Patient transfered to PCU with Bed. 9:21:14 Procedure ended. 9:21:14 Full Disclosure recording stopped 9:21:35 End room use (Document Last) Intervention Summary Intervention Notes Time ActionType Lesion and Equipment Action# Pressure Duration Attributes Used 9:00:38 Inflate 1st Diag Euphora 1 13 00:10 balloon 2.0 x 30 Balloon 9:02:52 Place stent 1st Diag Nicholas OTW 2 17 00:10 2.25 x 34 stent Device Usage Item Name Manufacture Quantity Catalog Hospital Part Current Minimal Lot# / Number Charge Number Stock Stock Serial# Code Terumo 6Fr Terumo 1 [id number] 40 Vancourt Sheath Tegaderm 4 3M 1 [id number] [id number] 043642 955156 5 x 4 Acist Hand Acist 1 56448 865091 529700 535032 5 Control Medical Systems Inc Acist Acist 1 82777 222986 799818 987121 5 Manifold Medical Systems Inc Acist Acist 1 82440 779617 285559 259887 20 Syringe Medical Systems Inc Bag Microtek 1 2002S 530533 87020 041054 5 Decanter Medical Inc. Medline Cardinal 1 [id number] 731959 72580 508330 [address] Giovanny 1 [id number] 778149 025419 630553 30 260cm J .035 wire Diagnostic Cardinal 1 [id number] 083967 93321 973967 30 Infinity Health 5Fr Multipack catheter Cordis 5Fr Cardinal 1 [id number] 5 Pigtail Health Catheter (MP) Cordis 5Fr Cardinal 1 670184 5 JL 4.0 Health Catheter (MP) Cordis 5Fr Cardinal 1 216950 5 3DRC Health Catheter (MP) Leiva Leiva 1 [id number] 404522 621406 553104 5 Whisper J Vascular 300cm 0.014 guide wire Merit Merit 1 [id number] 316378 638694 577232 15 Apama Medical[facility] HealthcareTors[facility] Mobile Medical Inflation Kit Diagnostic Cardinal 1 [id number] 975620 407161 100286 20 Infinity Health 5Fr AR 2 MOD catheter Cordis 6FR Cardinal 1 [id number] 245133 125597 348517 3 XBLAD 3.5 Health SH guide catheter Euphora 2.0 Medtronic 1 [id number] 541381 868731 630552 5 [id number] x 30 Balloon Girdletree OTW Medtronic 1 [id number] 999095 27930 665474 5 [id number] 2.25 x 34 stent Cordis 6Fr Cardinal 1 [id number] 724347 999291 920891 10 SiXtron [employer] Signature Audit [place] Stage Time Signature Unsigned Intra-Procedure 03/10/2017 Waqar Ryan 9:22:02 AM RT(R) Signatures Monitor : Waqar Ryan RT Signature : Date : Time : [address] [place] [address]
--- NOTE | ~2017-03-07 | HEMODYNAMI ---
PATIENT:CAM FANG MEDICAL RECORD: [id number] : 45 LOCATION[id number] ADMISSION DATE: 03/07/17 Generatedon:03/11/20179:59 Patient name: CAM FANG Patient #: [id number] SSN: [id number] : 1945 Date of study: 03/11/2017 Page: Of Hemodynamic Procedure Report Patient Data Patient Demographics Procedure consent was obtained First Name: CAM Gender: Female Last Name: ANNALISA : 1945 Middle Initial: M Age: 71 year(s) Patient #: [id number] Race: SSN: [id number] Additional ID: [id number] Contact details [address]: [address] [place] [address] State: [place] City: [place] Zip code: [address] Past Medical History Allergies Allergen Reaction Date Comments Reported Other allergy 03/11/2017 Plavix, Crestor Admission Admission Data Admission Date: 03/07/2017 Admission Time: 23:29 Room #: D.2115 Height (in.): 62 BSA: 1.58 (m2) Height (cm.): 157.48 BMI: 23.23 (kg/m2) Weight (lbs.): 127 Weight (kg.): 57.61 Procedure Procedure Types Cath Procedure PCI Procedure SVG-BMS/FEDE Initial Miscellaneous Procedures Moderate Sedation up to 15 minutes Procedure Description Procedure Date Procedure Date: 03/11/2017 Procedure Start Time: 9:48 Procedure End Time: 9:58 Procedure Staff Name Function Jose Angel Cardona MD Performing Physician Lacie Hernandez RT Scrub Waqar Ryan RT Monitor Kevin Maria RN Nurse Yaniv Pride RN Shield Cleaner Procedure Data Cath Procedure Fluoroscopy Diagnostic fluoroscopy Total fluoroscopy Time: 2.3 time: 2.3 min min Diagnostic fluoroscopy Total fluoroscopy dose: 170 dose: 170 mGy mGy Contrast Material Contrast Material Type Amount (ml) Isovue 300 45 Entry Location Entry Primary Successful Side Size Upsize Upsize Entry Closure Succes sful Closure Location (Fr) 1 (Fr) 2 (Fr) Remarks Device Remarks Femoral Left 6 Fr Exoseal artery Short Estimated blood loss: 10 ml Procedure Complications No complications Procedure Medications Medication Administration Route Dosage 0.9% NaCl I.V. 30 ml/hr Oxygen 6 l/min Heparin Flush Bag added to field 2 bags (1000units/500ml NS) Lidocaine 2% added to field 20 Heparin Bolus I.V. 4000 units Hemodynamics Rest BSA: 1.58 (m2) O2 Consumption: Estimated: 145.58 (ml/min) O2 Consumption indexed : Estimated:92.14 (ml/min/m) Heart Rate: 71 (bpm) Snapshots Pre Cath Intra NCS Post Cath Vital Signs Time Heart Resp SPO2 etCO2 NIBP (mmHg) Rhythm Pain Sedation Rate (ipm) (%) (mmHg) Status Level (bpm) 9:24:47 71 19 92 0 186/71(141) NSR 0 (11) 10(A) , No pain 9:29:40 71 16 98 0 189/73(139) NSR 0 (11) 10(A) , No pain 9:34:35 72 18 96 0 199/80(140) NSR 0 (11) 10(A) , No pain 9:39:19 75 19 97 0 159/85(148) NSR 0 (11) 10(A) , No pain 9:44:53 74 21 92 0 197/79(151) NSR 0 (11) 10(A) , No pain 9:49:46 71 15 97 0 172/79(135) NSR 0 (11) 10(A) , No pain 9:54:37 71 17 98 0 189/74(133) NSR 0 (11) 10(A) , No pain Medications Time Medication Route Dose Verified Delivered Reason Notes Effectiveness by by 9:26:11 0.9% NaCl I.V. 30 Kevin Kevin Per physician ml/hr Candace Maria RN RN 9:26:46 Oxygen simple 6 Kevin Kevin for low 02 sats mask l/min Candace Maria RN RN 9:27:13 Heparin Flush added 2 Kevin Kevin used for Bag to bags Candace Maria procedure (1000units/500ml field RN RN NS) 9:27:27 Lidocaine 2% added 20ml Kevin Kevin for local to vial Candace Maria anesthetic field RN RN 9:51:56 Heparin Bolus I.V. 4000 Kevin Kevin for units Candace Maria anticoagulation RN associate property manager Log Time Note 9:07:04 Yaniv Pride RN sent for patient. Start room use. 9:07:07 Time tracking: Regular hours 9:07:12 Patient Weight : 127 lbs 9:07:12 Patient Height : 62 inches 9:07:16 Plan of Care:Hemodynamics will remain stable., Cardiac rhythm will remain stable., Comfort level will be maintained., Respiratory function will remain adequate., Patient/ family verbilizes understanding of procedure., Procedure tolerated without complication., Recovers from procedure without complications.. 9:08:06 H&P Date Dictated: 03/08/2017 Within 30 days and on chart.. 9:08:31 Lab results completed and on chart. 9:14:32 Patient received from Med II to CCL 1 Alert and oriented. Tansferred to table in Supine position. 9:14:33 Warm blankets applied, and geeta hugger turned on for patient comfort. 9:14:34 Correct patient and procedure confirmed by team. 9:14:35 Signed procedure consent form obtained from patient. 9:14:36 ECG and BP/O2 sat monitors applied to patient. 9:23:45 Vital chart was started 9:26:11 0.9% NaCl 30 ml/hr I.V. was administered by Kevin Maria RN; Per physician; 9:26:46 Oxygen 6 l/min simple mask was administered by Kevin Maria RN; for low 02 sats; 9:27:13 Heparin Flush Bag (1000units/500ml NS) 2 bags added to field was administered by Kevin Maria RN; used for procedure; 9:27:27 Lidocaine 2% 20ml vial added to field was administered by Kevin Maria RN; for local anesthetic; 9:29:46 Baseline sample Acquired. 9:29:51 Rhythm: sinus rhythm 9:29:53 Full Disclosure recording started 9:30:15 Pre-procedure instructions explained to patient. 9:30:16 Pre-op teaching completed and patient verbalized understanding. 9:30:19 Family in patients room. 9:30:21 Patient NPO since Midnight. 9:30:48 Patient allergic to Other allergyPlavix, Crestor 9:30:53 Is the patient allergic to Iodine/contrast media? No. 9:31:00 Is patient on blood thinner?Yes 9:31:06 Patient diabetic? No. 9:31:07 If diabetic: On Metformin? No 9:31:19 Patient not . Patient is over age 55. 9:31:25 Previous problem with sedation/anesthesia? No ? 9:31:28 Snore? Yes 9:31:30 Sleep apnea? Yes 9:31:33 Deviated septum? No 9:31:37 Opens mouth fully? No 9:31:41 Sticks out tongue? Yes 9:31:44 Airway obstruction? No ? 9:31:48 Dentures? Yes ?IN TIGHT 9:32:17 Pre procedure: left dorsailis pedis pulse 1+ Palpable, but thready & weak; easily obliterated 9:32:33 IV patent on arrival in right hand with 0.9% NaCl at [facility]. 9:32:40 Left groin area was prepped with chlora-prep and draped in sterile fashion 9:34:13 Physician paged 9:37:40 Zero performed for pressure channel P1 9:42:10 Study PCI Site: HOYT Graft dLAD has 80% stenosis. 9:42:24 ACC Pre-intervention BECKI Flow is 3. 9:45:19 Physician arrived 9:45:19 --------ALL STOP TIME OUT------ 9:45:20 Final Timeout: patient, procedure, and site verified with staff and physician. All members of the team are in agreement. 9:45:22 Left groin site verified by team. 9:45:25 Physical assessment completed. ASA score P 2 - A patient with mild systemic disease as per Jose Angel Cardona MD. 9:45:29 Sedation plan: IV Moderate Sedation Versed, Fentanyl 9:48:30 Procedure started. 9:48:35 Local anesthetic to left femerol artery with Lidocaine 2% by Jose Angel Cardona MD.INITIAL ACCESS ONLY 9:49:00 A 6 Fr Short sheath was inserted into the Left Femoral artery 9:49:35 6 Fr CORNEL 90 guide catheter was inserted over the wire 9:51:01 Use device set Femoral PCI 9:51:05 Acist Manifold opened to sterile field. 9:51:07 Acist Syringe opened to sterile field. 9:51:07 Acist Hand Control opened to sterile field. 9:51:08 Bag Decanter opened to sterile field. 9:51:08 Medline Cath Pack opened to sterile field. 9:51:09 Terumo 6Fr [place] Sheath opened to sterile field. 9:51:09 St Giovanny 260cm J .035 wire opened to sterile field. 9:51:09 Plehn [employer] BasixCompak Inflation Kit opened to sterile field. 9:51:10 Tegaderm 4 x 4 opened to sterile field. 9:51:11 Medtronic Launcher 6Fr CORNEL 90 guide catheter opened to sterile field. 9:51:23 [employer] BasixCompak Inflation Kit opened to sterile field. 9:51:23 Leiva Whisper J 300cm 0.014 guide wire opened to sterile field. 9:51:36 WHISPER wire advanced. 9:51:56 Heparin Bolus 4000 units I.V. was administered by Kevin Maria RN; for anticoagulation; 9:52:23 Wire advanced across lesion. 9:53:01 Inflation Number: 1 A [place] OTW 2.5 x 15 stent was prepped and advanced across the HOYT -> Dist LAD. The stent was deployed at 15 AMBER for 0:10 (min:sec). 9:53:24 Inflation number: 2 The stent balloon was then re-inflated across the HOYT -> Dist LAD to 17 AMBER for 0:10 (min:sec). 9:53:48 Stent catheter was removed intact over wire. 9:53:51 Wire removed. 9:53:52 Guide catheter removed. 9:54:23 Sheath removed intact; hemostasis achieved with Exoseal to the Left Femoral artery. 9:54:37 Cordis 6Fr Exoseal opened to sterile field. 9:54:46 Procedure ended.(Physican Out) 9:55:25 Fluoroscopy time 02.30 minutes. 9:55:29 Fluoroscopy dose: 170 mGy 9:55:29 Flurop Dose total: 170 9:55:33 Contrast amount:Isovue 300 45ml. 9:55:34 Sharps counted by scrub and verified by R.N. 9:55:37 Insertion/operative site no bleeding no hematoma. 9:55:41 Post-op/insertion site Left Femoral artery dressed using a 4 x 4 and Tegaderm. 9:55:47 Post Procedure Pulses reassessed and unchanged 9:55:52 Post-procedure physical assessment completed. ASA score P 2 - A patient with mild systemic disease as per Jose Angel Cardona MD. 9:55:56 Post procedure rhythm: unchanged. 9:55:58 Estimated blood loss: 10 ml 9:56:00 Post procedure instruction explained to patient.Patient verbalizes understanding. 9:56:00 Patient needs reinforcement of post procedure teaching. 9:56:33 Procedure type changed to Cath procedure, PCI procedure, SVG-BMS/FEDE Initial, Miscellaneous Procedures, Moderate Sedation up to 15 minutes 9:57:11 Cook 18G 7cm Percutaneous Entry needle opened to sterile field. 9:58:24 Procedure and supply charges have been captured, reviewed, submitted and are correct. 9:58:27 Procedure Complication : No complications 9:58:33 Vital chart was stopped 9:58:34 See physician's report for complete and final results. 9:58:36 Report given to [facility]. 9:58:38 Patient transfered to [facility] with Stretcher. 9:58:40 Procedure ended. 9:58:40 Full Disclosure recording stopped 9:58:44 End room use (Document Last) Intervention Summary Intervention Notes Time ActionType Lesion and Equipment Action# Pressure Duration Attributes Used 9:53:01 Place stent HOYT -> Nicholas OTW 1 15 00:10 Dist LAD 2.5 x 15 stent 9:53:24 Reinflate HOYT -> Nicholas OTW 2 17 00:10 stent Dist LAD 2.5 x 15 balloon stent Device Usage Item Name Manufacture Quantity Catalog Hospital Part Current Minima l Lot# / Number Charge Number Stock Stock Serial# Code Acist Acist 1 26257 [id number] 737849 773753 5 Manifold Medical Systems Inc Acist Acist 1 65028 800269 416954 864443 20 Syringe Medical Systems Inc Acist Hand Acist 1 98017 863346 200668 649330 5 Control Medical Systems Inc Bag Decanter Microtek 1 2001S 016654 58408 052760 5 Medical Inc. Medline Cath Cardinal 1 [id number] 341648 59812 344219 5 Spiracur Terumo 6Fr Terumo 1 [id number] 879454 656212 832807 [address] Giovanny 1 [id number] 601709 290003 862643 30 260cm J .035 wire Merit Merit 2 [id number] 124399 150316 593116 15 [employer] Medical Inflation Kit Tegaderm 4 x 3M 1 1626W 756222 348822 316719 5 4 Medtronic Medtronic 1 [id number] 725251 06826 491004 1 Launcher 6Fr CORNEL 90 guide catheter Leiva Leiva 1 [id number] 397906 234441 532564 5 Whisper J Vascular 300cm 0.014 guide wire Nicholas OTW 2.5 Medtronic 1 [id number] 234428 74501 051217 5 [id number] x 15 stent Cordis 6Fr Cardinal 1 EX600 708628 170742 058872 10 Precursor Energetics 18G 7cm Pertino [facility] 1 [id number] 031291 11097 727117 5 Percutaneous Entry needle Signature Audit Table [place] Stage Time Signature Unsigned Intra-Procedure 03/11/2017 Lacie Hernandez 9:59:05 AM RT(R) Signatures Monitor : Waqar Ryan RT Signature : Date : Time : [place] [id number] [place] [address]
[2017-03-07 22:18] LABS: BASOPHILS 0.2 % (0-2); EOSINOPHILS 1.2 % (0-7); HEMATOCRIT 34.3 % (36.0-48.0); HEMOGLOBIN 10.4 g/dL (12-16); IMMATURE GRANULOCYTES 0.3 % (0-5); LYMPHOCYTES 5.6 % (15-50); MCH 27.7 pg (26.0-34.0); MCHC 30.3 g/dL (31.0-37.0); MCV 91.2 fL (80.0-100.0); MEAN PLATELET VOLUME 10.7 fL (7.4-10.4); MONOCYTES 3.8 % (2-11); NEUTROPHILS 88.9 % (40-80); PLATELET COUNT 390 10x3/uL (130-400); RBC 3.76 10x6/uL (4.00-5.40)
[2017-03-07 22:49] LABS: ALBUMIN 3.2 g/dL (3.4-5.0); ALKALINE PHOSPHATASE 81 U/L (46-116); ALT (SGPT) 14 U/L (10-68); AMYLASE - SERUM 66 U/L (25-115); BILIRUBIN - TOTAL 0.22 mg/dL (0.2-1.3); CALC OSMOLALITY 309 mosm/kg (275-300); CALCIUM 8.4 mg/dL (8.5-10.1); CARBON DIOXIDE 23.9 mmol/L (21.0-32.0); CHLORIDE - SERUM 104 mmol/L (98-107); CHOL - HDL RATIO 4.4 ratio (2.3-4.1); CHOLESTEROL, TOTAL 213 mg/dL (0-200); CKMB 2.2 U/L (0.0-3.6); CREATINE KINASE 69 UL (21-215); CREATININE - SERUM 5.7 mg/dL (0.6-1.3); GLUCOSE 203 mg/dL (74-106); HDL CHOLESTEROL 49 mg/dL (32-96); LDL CHOLESTEROL 141 mg/dL (0-100); LDL-HDL RATIO 2.9 ratio (1.5-3.5); LIPASE 132 U/L (73-393); PRO BNP 13454 pg/mL (0-125); PROTEIN - SERUM 7.3 g/dL (6.4-8.2); SODIUM 139 mmol/L (136-145); TRIGLYCERIDE 116 mg/dL (30-200); UREA NITROGEN 84 mg/dL (7-18); eGFR NON AFRICAN AMERICAN 8 mL/min (90-120)
[2017-03-07 22:52] LABS: POTASSIUM - SERUM 6.3 mmol/L (3.5-5.1)
[2017-03-08] VITALS (23 sets, daily range): BP systolic 102–149; BP diastolic 49–67; BMI 24.4
[2017-03-08] MEDS ORDERED: ASPIRIN325 MG PO (02:23)
[2017-03-08] MEDS ORDERED: NIFEDIPINE ER90 MG PO (02:29)
[2017-03-08] MEDS ORDERED: NITROSTAT0.4 MG SL (02:30)
--- NOTE | 2017-03-08 02:30 | NUR ---
0230: Pt rec'd from ED via STR and placed in room 2304 x4 RNs without difficulty. All monitors and alarms attached.
--- NOTE | 2017-03-08 02:45 | NUR ---
0245: Pt history completed. Pt states her pain started at HD. Pt states it started right after they inserted the needles. Pt states she was unable to complete HD at that time.
--- NOTE | 2017-03-08 03:00 | NUR ---
0300: Pt c/o intermittent left shoulder pain that radiates to left hand. Pt has NTG paste to right upper chest in place. Pt states her shoulder feels better resting on right side. Pt repositioned for comfort at this time. Pt SR 60's on CM with SBP 140's. Pt continues with decreased bases bilaterally with auscultation. SPO2 88-90% Encouraged DBC.
--- NOTE | 2017-03-08 04:00 | NUR ---
0400: Pt SPO2 decreased to 88%. Changed 02 to Oximizer at 6L and titrate to keep >92%. Pt without c/o at this time.
[2017-03-08 06:34] LABS: BASOPHILS 0.2 % (0-2); EOSINOPHILS 3.4 % (0-7); HEMATOCRIT 30.3 % (36.0-48.0); HEMOGLOBIN 9.2 g/dL (12-16); IMMATURE GRANULOCYTES 0.4 % (0-5); MCH 27.6 pg (26.0-34.0); MCHC 30.4 g/dL (31.0-37.0); MEAN PLATELET VOLUME 10.2 fL (7.4-10.4); MONOCYTES 9.2 % (2-11); NEUTROPHILS 71.8 % (40-80); PLATELET COUNT 348 10x3/uL (130-400); RBC 3.33 10x6/uL (4.00-5.40); RDW 18.1 % (11.5-14.5)
[2017-03-08 06:37] LABS: WBC 8.3 10x3/uL (4.8-10.8)
--- NOTE | 2017-03-08 07:00 | NUR ---
0700: Pt resting in bed with eyes closed. Open to verbal. Pt remains resting on right side. SR 60's on CM with SBP 130's. Pt remains on 02 via Oximizer at 8L with SPO2 94%.
[2017-03-08 07:09] LABS: ALBUMIN 2.8 g/dL (3.4-5.0); ALKALINE PHOSPHATASE 62 U/L (46-116); ALT (SGPT) 12 U/L (10-68); CARBON DIOXIDE 24.2 mmol/L (21.0-32.0); CHLORIDE - SERUM 105 mmol/L (98-107); CKMB 6.5 U/L (0.0-3.6); CREATINE KINASE 92 UL (21-215); CREATININE - SERUM 5.8 mg/dL (0.6-1.3); POTASSIUM - SERUM 5.7 mmol/L (3.5-5.1); PROTEIN - SERUM 6.2 g/dL (6.4-8.2); SODIUM 141 mmol/L (136-145); UREA NITROGEN 79 mg/dL (7-18); eGFR NON AFRICAN AMERICAN 8 mL/min (90-120)
[2017-03-08 07:12] LABS: CALC OSMOLALITY 304 mosm/kg (275-300); GLUCOSE 107 mg/dL (74-106); TROPONIN-I 2.777 ng/mL (0.000-0.060)
[2017-03-08] MEDS ORDERED: ISOSORBIDE MONO60 M1 PO (08:38)
[2017-03-08] MEDS ORDERED: COREG6.25 MG PO (08:39)
[2017-03-08 10:00] LABS: CKMB 6.5 U/L (0.0-3.6); CREATINE KINASE 97 UL (21-215); TROPONIN-I 3.984 ng/mL (0.000-0.060)
[2017-03-08 15:08] LABS: CKMB 5.9 U/L (0.0-3.6); CREATINE KINASE 92 UL (21-215)
[2017-03-08 15:09] LABS: TROPONIN-I 4.653 ng/mL (0.000-0.060)
--- NOTE | 2017-03-08 18:20 | NUR ---
RESTING WELL. DENIES ANY PAIN IN chest or LEFT HAND. ATE 100% of lunch and dinner. no distress.
--- NOTE | 2017-03-08 18:21 | NUR ---
dialysis today tolerated well. 1.7 liters removed. oxygen weaned to 3 liters per oxymyizer.
--- NOTE | 2017-03-08 19:00 | NUR ---
REPORT RECEIVED AND ASSESSMENT COMPLETED. SEE FLOWSHEET FOR FULL DETAILS. VSS AT THIS TIME PT IS IN ROOM RESTING. WILL MONITOR THROUGHOUT SHIFT
--- NOTE | 2017-03-08 21:00 | NUR ---
2100 MEDS GIVEN. NO OTHER CHANGES IN STATUS AT THIS TIME WILL CONTINUE TO MONITOR
[2017-03-08 21:13] LABS: CKMB 3.4 U/L (0.0-3.6); CREATINE KINASE 77 UL (21-215); TROPONIN-I 4.288 ng/mL (0.000-0.060)
--- NOTE | 2017-03-08 23:00 | NUR ---
REASSESSMENT COMPLETED SEE FLOWSHEET FOR FULL DETAILS. PT IS NSR AT THIS TIME. RESTING IN ROOM. NO OTHER CHANGES. WILL CONTINUE TO MONITOR
[2017-03-09] VITALS (19 sets, daily range): BP systolic 94–150; BP diastolic 38–91
--- NOTE | 2017-03-09 01:00 | NUR ---
DISCUSSED TREATMENT PLAN WITH PT AT THIS TIME. NO OTHER CHANGES WILL MONITOR
[2017-03-09 04:02] LABS: BASOPHILS 0.1 % (0-2); EOSINOPHILS 5.9 % (0-7); HEMATOCRIT 30.9 % (36.0-48.0); HEMOGLOBIN 9.2 g/dL (12-16); IMMATURE GRANULOCYTES 0.3 % (0-5); LYMPHOCYTES 14.5 % (15-50); MCH 27.5 pg (26.0-34.0); MCHC 29.8 g/dL (31.0-37.0); MCV 92.2 fL (80.0-100.0); MEAN PLATELET VOLUME 10.5 fL (7.4-10.4); MONOCYTES 15.2 % (2-11); PLATELET COUNT 310 10x3/uL (130-400); RBC 3.35 10x6/uL (4.00-5.40); RDW 18.3 % (11.5-14.5); WBC 7.2 10x3/uL (4.8-10.8)
[2017-03-09 04:18] LABS: ALBUMIN 2.9 g/dL (3.4-5.0); ANION GAP 14.6 mmol/L (8-16); BILIRUBIN - TOTAL 0.17 mg/dL (0.2-1.3); CALCIUM 8.2 mg/dL (8.5-10.1); CARBON DIOXIDE 30.2 mmol/L (21.0-32.0); CREATININE - SERUM 5.1 mg/dL (0.6-1.3); PHOSPHOROUS 6.6 mg/dL (2.5-4.9); PROTEIN - SERUM 6.6 g/dL (6.4-8.2)
[2017-03-09 04:19] LABS: POTASSIUM - SERUM 4.8 mmol/L (3.5-5.1)
--- NOTE | 2017-03-09 05:18 | NUR ---
AM LABS DRAWN. PT EXPRESSED FEAR OF NEW MEDICATIONS AND PROCEDURES. EXPLAINED TX PLAN TO PT AND CALMED HER. NO OTHER CHANGES AT THIS TIME. VSS.
--- NOTE | 2017-03-09 10:16 | NUR ---
AWAKES EASILY TO VERBAL STIMULI SKIN WARM AND DRY. LEFT UPPER ARM BRUIT AUDIBLE. DENEIS ANY PAIN. DOES HAVE SOME NUMBNESS LEFT HAND. COMPLETE BED BATH LINEN CHANGED. RIGHT FOREARM IV SALINE LOCK WITHOUT REDNESS OR SWELLING. MONITOR SR. SCD ON LOWER LEGS. ABLE TO TURN SELF FROM SIDE TO SIDE. BARRAGAN CATH PATENT DRAINING CLEAR PALE YELLOW URINE.
[2017-03-10 05:20] VITALS: BP 112/42
[2017-03-10 05:39] LABS: BASOPHILS 0.3 % (0-2); EOSINOPHILS 7.1 % (0-7); HEMATOCRIT 30.1 % (36.0-48.0); HEMOGLOBIN 9.1 g/dL (12-16); IMMATURE GRANULOCYTES 0.4 % (0-5); LYMPHOCYTES 20.6 % (15-50); MCH 27.6 pg (26.0-34.0); MCHC 30.2 g/dL (31.0-37.0); MCV 91.2 fL (80.0-100.0); MEAN PLATELET VOLUME 11.1 fL (7.4-10.4); MONOCYTES 12.3 % (2-11); NEUTROPHILS 59.3 % (40-80); PLATELET COUNT 303 10x3/uL (130-400); RDW 18.2 % (11.5-14.5); WBC 7.2 10x3/uL (4.8-10.8)
[2017-03-10 05:47] LABS: INR 1.07 (0.85-1.17); PROTIME 13.8 SECONDS (11.6-15.0)
[2017-03-10 06:24] LABS: ALBUMIN 2.9 g/dL (3.4-5.0); ANION GAP 18.5 mmol/L (8-16); BILIRUBIN - TOTAL 0.2 mg/dL (0.2-1.3); CARBON DIOXIDE 24.4 mmol/L (21.0-32.0); CHOL - HDL RATIO 3.7 ratio (2.3-4.1); LDL-HDL RATIO 2.3 ratio (1.5-3.5); POTASSIUM - SERUM 4.9 mmol/L (3.5-5.1); PROTEIN - SERUM 6.3 g/dL (6.4-8.2)
[2017-03-10 06:25] LABS: CREATININE - SERUM 6.8 mg/dL (0.6-1.3)
--- NOTE | 2017-03-10 07:30 | NUR ---
ASSESSMENT COMPLETED. TELEMERTY SHOWS SR 61. PT HAS A LEFT AVF. B[place]AGAN CATH TO BEDSIDE DRAINAGE. SCDS ON. RIGHT WRIST SL. NPO FOR CATH.WILL MONITOR
--- NOTE | 2017-03-10 08:05 | NUR ---
TO AUDIT SENIOR ASSOCIATE PER BED
[2017-03-10 08:23] VITALS: BP 127/45
--- NOTE | 2017-03-10 09:43 | NUR ---
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 SEDATED BUT OPEN EUES TO VERBAL STEMLI. TEL EMERTY SHOWS SR. O2 AT 6 L/M PER MASK. RIGHT GRON WITH HEMITOMA, SOFT WITH FEM STOP IN OLACE. PPP. V/S STABLE. WILL MONITOR
--- NOTE | 2017-03-10 10:53 | NUR ---
V/S STABLE. RIGHT GROIN WITH FEM STOP IN PLACE GROIN SOFT, NO BLEEDING NOTED. V/S STABLE. SR UP WITH CALL LIGHT IN REACH
--- NOTE | 2017-03-10 13:34 | NUR ---
SLEEPING WILL CONTINUE TO MONITOR. MONITOR SHOWS SINUS @ 62.
--- NOTE | 2017-03-10 14:03 | NUR ---
LYING QUIETLY. RIGHT GROIN DRSG CLEAN AND DRY. DENIES ANY NEEDS.TELEMERTY SHOWS SR.
[2017-03-10 15:53] VITALS: BP 143/61
--- NOTE | 2017-03-10 18:27 | NUR ---
LYING QUIETLY. RIGHT GROIN SOFT WITH DRSG DRY AND INTACT.TELEMERTY SHOWS SR. NO NEEDS VOICED
[2017-03-10 19:00] VITALS: BP 121/49
[2017-03-11] VITALS: BP 158/54
--- NOTE | 2017-03-11 01:58 | NUR ---
PT RESTING SOUNDLY WITHOUT C/O OR DISTRESS NOTED. CALL LIGHT WITHIN REACH. WILL MONITOR.
[2017-03-11 04:00] VITALS: BP 184/65
[2017-03-11 06:14] LABS: FOLATE (FOLIC ACID) - SERUM 5.8 ng/mL (>3.0)
--- NOTE | 2017-03-11 07:23 | NUR ---
ASSESSMENT COMPLETED. RESTING QUIETLY. O2 AT 2 L/M WITH O2 SAT AT 94. RIGHT WRIST IV. LEFT AVF WITH RESERVE LEFT ARM. BARRAGAN CATH TO BEDSIDE DRAINAGE. NPO FOR CATH TODAY. RIGHT GROIN CATH SITE SOFT WITH NO BLEEDING NOTED
[2017-03-11 08:35] VITALS: BP 180/68
--- NOTE | 2017-03-11 08:52 | NUR ---
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
--- NOTE | 2017-03-11 09:30 | NUR ---
TO SPECIALIST EMPLOYEE LABOR RELATIONS PER BED
--- NOTE | 2017-03-11 10:00 | NUR ---
back from laboratory monitor. V/S STABLE. LEFT GROIN SOFT WITH DRSG DRY AND INTACT. TELEMERTY SHOWS SR. PPP. WILL MONITOR
--- NOTE | 2017-03-11 11:04 | NUR ---
ROUNDING DONE WITH PATIENT APPEARING TO BE ASLEEP. VENTI-MASK IN USE. BARRAGAN CATH PATENT WITH CLEAR YELLOW URINE. LAYING FLAT. PPP AND STRONG TO RIGHT LEG. WILL MONITOR.
[2017-03-11 12:02] VITALS: BP 176/91
--- NOTE | 2017-03-11 16:42 | CN ---
PATIENT NAME:CAM PETERSON MEDICAL RECORD: [id number] : 45 LOCATION:D. D.2115 ADMIT DATE: 03/07/17 ACCOUNT: [id number] CONSULTING PHYSICIAN: CONCEPCION BALBUENA MD REFERRING PHYSICIAN: NILAY FLORES MD DATE OF CONSULTATION: 03/08/2017 DIAGNOSES: 1. Unstable angina. 2. Coronary artery disease. 3. Previous PTCA and stent. 4. End-stage renal failure, on dialysis. 5. Hypertension. 6. Hypothyroidism, on replacement. HISTORY OF PRESENT ILLNESS: Ms. Peterson presents with increasing chest pain and left arm pain. This is like her previous angina. Last cardiac intervention was September of 2016. For the past 2 weeks, she has had progressive chest pain, chest discomfort, and left arm pain. Her EKG initially had T-wave inversions inferolaterally. Now, she is pain free. Her EKG is back to normal. PHYSICAL EXAMINATION: GENERAL APPEARANCE: Well-nourished, well-developed, appears stated age. Level of distress, comfortable. PSYCHIATRIC: Mental status, alert, normal affect. Orientation, oriented to time, place and person. EYES: Lids and conjunctiva, noninjected. No discharge, no pallor. ENT: Lips, teeth, gums, normal dentition. Oropharynx, no cyanosis, no pallor. NECK: Carotid arteries, bilateral normal upstroke, no bruits, no thrills. JUGULAR VEINS: No jugular venous pressure or distention. CERVICAL LYMPH NODES: Nontender, nonenlarged. THYROID: Not enlarged. Nontender. No nodules. LUNGS: Respiratory effort, unlabored. CHEST: Normal curvature. No thoracic deformity. No chest wall tenderness. Percussion, resonant. Auscultation, clear. No wheezes, no rales, no rhonchi. CARDIOVASCULAR: Precordial exam, nondisplaced. No heaves or pericardial thrills. Rate and rhythm, regular. Heart sounds, normal S1, normal S2. No S3, no gallop, no rub. Systolic murmur, not heard. Diastolic murmur, not heard. EXTREMITIES: No cyanosis, no edema. Peripheral pulses, full and equal in all extremities, except as noted. No bruits appreciated. ABDOMEN: Soft, nondistended. Normal aorta. No bruit. Nontender. No masses. Liver, nontender, no hepatomegaly. Spleen, nontender, no splenomegaly. MUSCULOSKELETAL: No joint tenderness. No joint swelling. No erythema. NEUROLOGICAL: Normal gait, normal strength, normal tone. SKIN: Warm and dry. REVIEW OF SYSTEMS: The patient reports easy bruising but reports no swollen glands. The patient reports no fever, no night sweats, no significant weight gain, no significant weight loss. No significant exercise tolerance. The patient reports no dry eyes, no irritation, no vision change. Patient reports no difficulty hearing and no ear pain. Patient reports no frequent nose bleeds or nose and sinus problems. Patient reports on arm pain on exertion. No shortness of breath while lying down. No history of heart murmur. Patient reports no cough, no wheezing or coughing up blood. Patient reports no abdominal pain, no vomiting. Normal appetite. No diarrhea and not vomiting CONSULT REPORT [id number] CAM PETERSON blood. No nausea and no constipation. Patient reports no incontinence. No difficulty urinating. No hematuria. No increased frequency. Patient reports no muscle aches. No weakness, no arthralgias, no back pain. No swelling of the extremities. Patient reports no abnormal mole, no jaundice, no rashes. Reports no loss of consciousness. No weakness and no numbness. No seizures, dizziness, or headaches. The patient reports no depression, no sleep disturbance, feeling safe in a relationship and no alcohol abuse. Patient reports on fatigue. Reports no runny nose or sinus pressure. No itching, no hives, and no frequent sneezing. OVERALL IMPRESSION: Unstable anginal symptomatology. Most likely she has recurrent hemodynamically significant coronary artery disease, especially with the increasing chest pain and abnormal ECG. We will proceed with coronary angiography in the near future. Further care depends on findings of the angiography. TRANSINT:[id number] Voice Confirmation ID: [id number] DOCUMENT ID: [id number] CONCEPCION BALBUENA MD at 1642 CC: [id number] DICTATION DATE: 03/08/17 0950 EMERGENCY ROOM SPECIALIST: 03/08/17 1025 ADM IN [place] [id number] [place] [address]
--- NOTE | 2017-03-11 16:42 | OP ---
PATIENT NAME: CAM FANG MEDICAL RECORD: [id number] :45 LOCATION:D.M2 D.2115 ADMISSION DATE:03/07/17 SURGEON: CONCEPCION BALBUENA MD DATE OF OPERATION: 03/10/2017 PROCEDURES: 1. PTCA stent to LAD diagonal. 2. Left heart catheterization. 3. Selective coronary angiography. 4. Left ventriculogram. 5. Vein graft angiography. 6. HOYT angiography. INDICATION: Angina and coronary artery disease. PROCEDURE IN DETAIL: After informed consent was obtained and after detailed explanation of risks, benefits as well as alternative therapies, the patient elected to proceed with angiogram and angioplasty. The right femoral area was prepped and draped in normal sterile fashion. The right femoral artery was cannulated via modified Seldinger technique with placement of 6-Turkish sheath. All catheters exchanged through this sheath. FINDINGS: The left ventriculogram was performed in standard 30-degree PILLAI view, reveals preserved cardiac wall motion, ejection fraction 50%. SELECTIVE CORONARY ANGIOGRAPHY: 1. Left main showed no significant angiographic disease. 2. Left anterior descending has previously stented to the first diagonal. This is 99% in-stent restenosis. 3. Left circumflex has a first obtuse marginal, it is widely patent. Circumflex is closed after that. 4. Vein graft to the circumflex and second obtuse marginal is widely patent. Distal marginal was patent. 5. HOTY to the distal LAD is widely patent. The distal LAD; however, has a 70% stenosis after the HOYT. 6. The right coronary artery is 95% stenosed in the mid vessel. 7. Vein graft to the distal right coronary artery is widely patent. Distal right coronary artery is patent. PTCA STENT OF THE LAD DIAGONAL: The stent used 2.25 x 34 mm Nicholas. Result was 0% residual stenosis. OVERALL IMPRESSION: Successful percutaneous transluminal coronary angioplasty stent of the left anterior descending diagonal going from 95% stenosis to 0% residual stenosis. PLAN: PTCA stent of the LAD through the HOYT graft in the near future. TRANSINT:[id number] Voice Confirmation ID: [id number] DOCUMENT ID: [id number] OPERATIVE REPORT [id number] CAM FANG CONCEPCION BALBUENA MD at 3973 CC: [id number] DICTATION DATE: 03/10/17907 SILO MAN: 03/10/17 1119 ADM IN [place] [id number] [place] [id number]
--- NOTE | 2017-03-11 16:42 | OP ---
PATIENT NAME: CAM FANG MEDICAL RECORD: [id number] :45 LOCATION:D.M2 D.2115 ADMISSION DATE:03/07/17 SURGEON: CONCEPCION BALBUENA MD DATE OF OPERATION: 03/11/2017 PROCEDURES: 1. PTCA and stent to LAD through a patent HOYT graft. 2. Selective HOYT and coronary angiography. INDICATION: Angina and coronary artery disease. PROCEDURE IN DETAIL: After informed consent was obtained and after a detailed explanation of risks, benefits as well as alternative therapies, the patient elected to proceed with angiogram and angioplasty. The left femoral area was prepped and draped in normal sterile fashion. The left femoral artery was cannulated via modified Seldinger technique with placement of 6-Martiniquais sheath. All catheters exchanged through this sheath. FINDINGS: The HOYT graft is widely patent. The left anterior descending has a 70 to 80% stenosis, after this was addressed with a 2.5 x 15 mm Nicholas stent. Result was 0% residual stenosis. OVERALL IMPRESSION: Successful percutaneous transluminal coronary angioplasty stent of the left anterior descending through the HOYT graft going from 70-80% initial stenosis to 0% residual stenosis. TRANSINT:[id number] Voice Confirmation ID: [id number] DOCUMENT ID: [id number] CONCEPCION BALBUENA MD at 1642 CC: [id number] DICTATION DATE: 03/11/17 0959 MASSAGE COORDINATOR: 03/11/17 1127 ADM IN [place] [id number] [place] [address]
--- NOTE | 2017-03-11 16:42 | EC ---
PATIENT:CAM FANG DATE OF SERVICE: 03/07/17 SEX: F MEDICAL RECORD: [id number] DATE OF : 45 LOCATION:D. D.211 AGE OF PATIENT: 71 ADMISSION DATE: 03/07/17 REFERRING PHYSICIAN: INTERPRETING PHYSICIAN: CONCEPCION CARDONA MD ECHOCARDIOGRAM REPORT ECHO CHARGES 4 ECHO COMPLETE CLINICAL DIAGNOSIS: SOB HX CAD/CABG/RENAL DISEASE ECHOCARDIOGRAPHIC MEASUREMENTS (adult normal given) AC root (d.<3.7cm) 2.5 cm LV Septum d (<1.2 cm> 1.6 cm Valve Excursion 1.2 cm LV Septum (systole) 2.1 cm Left Atria (s.<4.0cm> 4.0 cm LVPW d(<1.2cm) 1.7 cm RV (d.<2.3cm) 4.2 cm LVPW (sytole) 2.0 cm LV diastole(<5.6CM) 4.0 cm MV E-F(>70mm/sec) cm LV systole 2.4 cm LVOT Diameter 1.1 cm MV exc.(>10mm) 1.4 cm Est.ejection fraction (50-75%) % Pericardial Effusion N DOPPLER: LVIT cm/sec A 119 cm/sec E 127 cm/sec LA cm/sec RVSP 25 mmHg LVOT 105 cm/sec AOP1/2T m/s Asc. Ao 224 cm/sec RVOT 97 cm/sec RA cm/sec PA 175 cm/sec AV Gradient Peak 20.10mmHg AV Mean 11.84mmHg AV Area 1.1 cm MV Gradient Peak 5.60 mmHg MV Mean 2.53 mmHg MV Area 2.5 cm COMMENTS: Cleaner And Preparer: Ellis CROWDER Medical Device Engineer: 1 Dr. Cardona TAPE# PACS DATE OF SERVICE: 03/08/2017 Echocardiogram FINDINGS: 1. Left ventricular chamber size is within normal limits. Left ventricular systolic function is normal. Overall ejection fraction estimated at 55%. 2. Left atrium is upper limits of normal at 4.0 cm. Right atrium and right ventricular chamber sizes are mildly dilated. 3. Valvular structures: Aortic valve demonstrates mild calcific aortic ECHOCARDIOGRAM REPORT [id number] CAM FANG stenosis. Valve area calculates to 1.1 cm squared with a gradient of 20 mm across the valve. The remaining valvular structures have normal structure and motion. 4. Doppler interrogation reveals elsewise mild tricuspid regurgitation, no other valvular insufficiency or stenosis. Pulmonary systolic pressure is normal, estimated at 25 mmHg. 5. No evidence of pericardial effusion or left ventricular thrombus. TRANSINT:[id number] Voice Confirmation ID: [id number] DOCUMENT ID: [id number] CONCEPCION CARDONA MD at 1642 CC: [id number] DICTATION DATE: 03/09/17 1112 TAN ROOM SUPERVISOR: 03/09/17 1444 ADM IN [facility] [address] [id number]
--- NOTE | 2017-03-11 20:27 | NUR ---
PT RESTING COMFORTABLY, EYES CLOSED, RESPIRATIONS EVEN AND UNLABORED. WILL CONTINUE TO MONITOR CLOSELY. BED LOW, CALL LIGHT IN REACH, SIDE RAILS X 2, HOB 35 DEGREES.
[2017-03-11 21:28] VITALS: BP 175/75
[2017-03-12 01:06] VITALS: BP 178/62
[2017-03-12 05:07] VITALS: BP 141/59
--- NOTE | 2017-03-12 06:44 | NUR ---
PT HAS HAD AN INTERMITTENT FEVER THIS SHIFT THAT DOES RESPOND WELL TO HER PRN NORCO, AND ALSO C/O PAIN IN HER LT ARM AND RLE. PT HAS BEEN RESTING COMFORTABLY, NO NEEDS. CONTINUE TO MONITOR CLOSELY.
[2017-03-12 08:34] VITALS: BP 135/57
--- NOTE | 2017-03-12 09:40 | NUR ---
TELEMETRY SR. RIGHT GROIN HEMATOMA NOTED. CALL LIGHT IN REACH. WILL CONT. PLAN OF CARE.
[2017-03-12 12:44] VITALS: BP 149/58
--- NOTE | 2017-03-12 13:23 | NUR ---
Nutrition follow-up: Diet: Renal ADA consistent CHO with 1000 ml FR PO intake ~50-75% of meals Labs reviewed Wt: 135# NO BM charted RDN following.
[2017-03-12 15:35] VITALS: BP 114/58
[2017-03-12] MEDS ORDERED: EFFIENT10 MG PO (17:14)
[2017-03-12] MEDS ORDERED: ASPIRIN325 MG PO (17:14)
--- NOTE | 2017-03-12 18:10 | NUR ---
IV, TELEMETRY AND LAUREL DCD. DC PLANS GIVEN. UNDERSTANDING VOICED. ESCORTED TO CAR BY W/C.
[2017-03-13 09:14] LABS: HEPATITIS C ANTIBODY <0.1 (0.0-0.9)
== END 2017-03-12 18:11 | disposition home or self-care (01) | DRG 246 ==
LOC: OBSVTIME → D.ER 21:30 → OBSVTIME 23:28 → D.ICU 23:28 → D.M2 23:29 → D.ICU 23:29 → D.M2 03-08 00:11 → D.ER 03-08 00:11 → OBSVTIME 03-08 00:11 → D.M2 03-08 00:11 → D.ICU 03-08 01:20 → D.M2 03-08 02:11 → D.ICU 03-08 02:11 → D.M2 03-09 19:12
PROVIDERS: Family Medicine; Internal Medicine Interventional Cardiology; ADMIT Internal Medicine Nephrology
PROC: 4A023N7 Measurement of Cardiac Sampling and Pressure, Left Heart, Percutaneous Approach (ICD-10-PCS; 2017-03-10)
PROC: B2121ZZ Fluoroscopy of Single Coronary Artery Bypass Graft using Low Osmolar Contrast (ICD-10-PCS; 2017-03-10)
PROC: B2111ZZ Fluoroscopy of Multiple Coronary Arteries using Low Osmolar Contrast (ICD-10-PCS; 2017-03-10)
PROC: B2151ZZ Fluoroscopy of Left Heart using Low Osmolar Contrast (ICD-10-PCS; 2017-03-10)
PROC: 027034Z Dilation of Coronary Artery, One Artery with Drug-eluting Intraluminal Device, Percutaneous Approach (ICD-10-PCS; principal; 2017-03-10 11:00)
PROC: 027034Z Dilation of Coronary Artery, One Artery with Drug-eluting Intraluminal Device, Percutaneous Approach (ICD-10-PCS; 2017-03-11)
DX: I21.4 Non-ST elevation (NSTEMI) myocardial infarction (principal); N18.6 End stage renal disease; I12.0 Hypertensive chronic kidney disease with stage 5 chronic kidney disease or end stage renal disease; T82.898A Other specified complication of vascular prosthetic devices, implants and grafts, initial encounter; I25.110 Atherosclerotic heart disease of native coronary artery with unstable angina pectoris; Z95.5 Presence of coronary angioplasty implant and graft; E87.5 Hyperkalemia; E11.22 Type 2 diabetes mellitus with diabetic chronic kidney disease; Z99.2 Dependence on renal dialysis; E63.1 Imbalance of constituents of food intake; E03.9 Hypothyroidism, unspecified; Z87.891 Personal history of nicotine dependence; Y83.8 Other surgical procedures as the cause of abnormal reaction of the patient, or of later complication, without mention of misadventure at the time of the procedure

== ENCOUNTER 2017-04-25 08:32 | Day surgery (SDC) | payer MEDICARE ==
[~2017-04-25] VITALS: Ht 157.5 cm; Wt 59.0 kg
[~2017-04-25 08:32] MED LIST changes: +NIFEDIPINE ER90 MG PO; +NITROSTAT0.4 MG SL
[2017-04-25 09:18] LABS: BASOPHILS 0.5 % (0-2); EOSINOPHILS 6.2 % (0-7); HEMATOCRIT 40.5 % (36.0-48.0); HEMOGLOBIN 12.6 g/dL (12-16); IMMATURE GRANULOCYTES 0.4 % (0-5); MCH 27.3 pg (26.0-34.0); MCHC 31.1 g/dL (31.0-37.0); MCV 87.7 fL (80.0-100.0); MEAN PLATELET VOLUME 10.5 fL (7.4-10.4); MONOCYTES 10.4 % (2-11); NEUTROPHILS 63.5 % (40-80); PLATELET COUNT 324 10x3/uL (130-400); RBC 4.62 10x6/uL (4.00-5.40); RDW 15.3 % (11.5-14.5); WBC 7.4 10x3/uL (4.8-10.8)
[2017-04-25 09:38] LABS: INR 0.96 (0.85-1.17); PROTIME 12.4 SECONDS (11.6-15.0)
[2017-04-25 09:42] LABS: ANION GAP 13.1 mmol/L (8-16); CALCIUM 9.1 mg/dL (8.5-10.1); CARBON DIOXIDE 29.4 mmol/L (21.0-32.0); POTASSIUM - SERUM 4.5 mmol/L (3.5-5.1)
[2017-04-25] MEDS ORDERED: RENVELA800 MG PO (10:06)
[2017-04-25] MEDS ORDERED: ULTRAM50 MG PO (10:07)
[2017-04-25] MEDS ORDERED: GABAPENTIN100 MG PO (10:07)
[2017-04-25] MEDS ORDERED: LASIX80 MG PO (10:08)
[2017-04-25] MEDS ORDERED: SANTYL30 GM TP (10:09)
[2017-04-25 10:15] VITALS: Ht 157.5 cm; Wt 59.0 kg
--- NOTE | 2017-04-29 11:52 | OP ---
PATIENT NAME: CAM PETERSON MEDICAL RECORD: [id number] :45 LOCATION:D.[facility]ER[facility] ADMISSION DATE: SURGEON: PHUC BOCANEGRA MD DATE OF OPERATION: 04/25/2017 REFERRING PHYSICIAN: Dr. Amor. PREOPERATIVE DIAGNOSIS: Steal syndrome, mechanical complication of hemodialysis AV fistula, T82.590A. ADDITIONAL DIAGNOSIS: End-stage renal disease, N18.6 and dependence on hemodialysis, Z99.2. OPERATION PERFORMED: Left arm AV fistulogram and selective brachial arteriogram. SURGEON: Phuc Bocanegra MD. ANESTHESIA: General with LMA per HEALTH ANALYST. PREOPERATIVE NOTE: Ms. Peterson is a sweet 71-year-old white female patient with end-stage renal disease, on chronic hemodialysis. She is dialyzing now with a left brachiobasilic AV fistula, which was never translocated and she has only a short length of vein, which is actually usable. She had terrible complications with several dialysis catheters and I feel like we have been real fortunate with her to this point with this particular fistula. She has recently complained of pain in her hand, which had gotten worse and a steal evaluation by Dr. Amor revealed good flow to her hand, but he was concerned that she had monomelic neuropathy and she was referred to me with a question of whether or not she should have her fistula ligated or possibly banded. On close questioning preop, the patient's symptoms seemed to have improved and it is my opinion that she does not have monomelic neuropathy, though possibility of a steal I suppose is still there. She does have a warm pink hand, though it is cooler than the right hand. She does not have ulcerations or gangrene. I am going to go ahead and do another fistulogram and an arteriogram to evaluate for myself the circulation to the hand and then may possibly go on to do an open banding procedure. DESCRIPTION OF PROCEDURE: With the patient under anesthesia, she was prepped and draped in a sterile manner and the fistula was accessed with micropuncture technique. Contrast injection revealed no evidence of any problems with the fistula itself or its proximal runoff or arterial anastomosis. I was able to cross the arterial anastomosis with a guidewire and then with a glide catheter and performed a selective brachial arteriogram, which revealed really good flow to the hand with a dominant radial artery, but an intact patent radial artery and intact palmar arch. I also demonstrated Doppler pulsations of good magnitude and phasicity in the radial artery at the wrist and able to Doppler digital arterial pulses. I was reluctant to do any further procedure on this patient as she does not have much length of the fistula to play with. If I were to do an open banding, she would probably have to have a bridging catheter and she has a history of poor results with catheter placement. So at this point, I elected to terminate the procedure. The 6-Kiswahili introducer was removed and its puncture site closed with a [id number] 4-0 Prolene suture and a sterile dressing applied. The OPERATIVE REPORT [id number] ANNALISACAM M patient awakened and taken to the recovery room. She will return to see me on a p.r.n. basis and we will be sure to have the suture removed from her arm when she goes for dialysis next, I think tomorrow. TRANSINT:[id number] Voice Confirmation ID: [id number] DOCUMENT ID: [id number] PHUC BOCANEGRA MD at 1152 CC: USNNY AMOR MD [id number] DICTATION DATE: 04/28/17 1247 CHIEF OF POLICE: 04/28/17 1326 [facility] 04/25/17 [facility] [address] [place] [address]
== END 2017-04-25 14:30 | disposition home or self-care (01) ==
LOC: D.OPS 08:32
PROVIDERS: Anesthesiology
DX: T82.898A Other specified complication of vascular prosthetic devices, implants and grafts, initial encounter (principal); T82.590A Other mechanical complication of surgically created arteriovenous fistula, initial encounter; N18.6 End stage renal disease; Z99.2 Dependence on renal dialysis; Z01.812 Encounter for preprocedural laboratory examination

== ENCOUNTER → 2019-09-09 11:18 | Outpatient (CLI) | payer MEDICARE ==
[2017-04-25 10:15] VITALS: BMI 23.8
[~2019-09-09 11:18] MED LIST changes: +RENVELA800 MG PO; +SANTYL30 GM TP
== END | disposition home or self-care (01) ==
LOC: D.CT 10:30
PROVIDERS: ATTEND Internal Medicine Nephrology
DX: R22.2 Localized swelling, mass and lump, trunk (principal); I25.10 Atherosclerotic heart disease of native coronary artery without angina pectoris; E11.9 Type 2 diabetes mellitus without complications; Z95.1 Presence of aortocoronary bypass graft; N18.6 End stage renal disease; Z99.2 Dependence on renal dialysis

== ENCOUNTER 2019-12-03 11:29 | Emergency (ER) | payer MEDICARE ==
[~2019-12-03] VITALS: Ht 157.5 cm; Wt 59.1 kg
[2019-12-03 11:36] VITALS: Ht 157.5 cm; Wt 59.1 kg
[2019-12-03 12:01] LABS: BASOPHILS 0.2 % (0-2); EOSINOPHILS 0.1 % (0-7); HEMATOCRIT 37.2 % (36.0-48.0); HEMOGLOBIN 11.8 g/dL (12-16); IMMATURE GRANULOCYTES 0.4 % (0-5); LYMPHOCYTES 4.2 % (15-50); MCH 28.5 pg (26.0-34.0); MCHC 31.7 g/dL (31.0-37.0); MCV 89.9 fL (80.0-100.0); MEAN PLATELET VOLUME 10.5 fL (7.4-10.4); MONOCYTES 10.4 % (2-11); NEUTROPHILS 84.7 % (40-80); PLATELET COUNT 249 10x3/uL (130-400); RBC 4.14 10x6/uL (4.00-5.40); RDW 15.3 % (11.5-14.5); WBC 13.5 10x3/uL (4.8-10.8)
[2019-12-03 12:20] LABS: INR 1.21 (0.85-1.17); PROTIME 15.2 SECONDS (11.6-15.0)
[2019-12-03 12:21] LABS: APTT 31.9 SECONDS (22.8-39.4); CALC OSMOLALITY 269 mosm/kg (275-300); CARBON DIOXIDE 25.1 mmol/L (21.0-32.0); CHLORIDE - SERUM 94 mmol/L (98-107); CREATININE - SERUM 5.3 mg/dL (0.6-1.3); GLUCOSE 107 mg/dL (74-106); POTASSIUM - SERUM 4.9 mmol/L (3.5-5.1); SODIUM 129 mmol/L (136-145); UREA NITROGEN 43 mg/dL (7-18); eGFR NON AFRICAN AMERICAN 8 mL/min (90-120)
[2019-12-03 12:41] LABS: ALBUMIN 3.4 g/dL (3.4-5.0); ALKALINE PHOSPHATASE 99 U/L (30-120); ALT (SGPT) 15 U/L (10-68); BILIRUBIN - TOTAL 0.88 mg/dL (0.2-1.3); CKMB 1.3 U/L (0.0-3.6); CREATINE KINASE 77 UL (21-215); MAGNESIUM - SERUM 2.3 mg/dL (1.8-2.4); PROTEIN - SERUM 7.5 g/dL (6.4-8.2)
[2019-12-03 12:42] LABS: PRO BNP 5 pg/mL (0-125)
[2019-12-03 12:43] LABS: TROPONIN-I 0.113 ng/mL (0.000-0.060)
[2019-12-03 16:23] VITALS: BP 128/50
== END 2019-12-03 16:58 | disposition other institution (70) ==
LOC: D.ER 11:29
PROVIDERS: Family Medicine
DX: L02.01 Cutaneous abscess of face (principal); E11.22 Type 2 diabetes mellitus with diabetic chronic kidney disease; N18.9 Chronic kidney disease, unspecified; Z99.2 Dependence on renal dialysis; K12.2 Cellulitis and abscess of mouth; E07.9 Disorder of thyroid, unspecified; I25.2 Old myocardial infarction